=== PATIENT | female | born 1970 | race Caucasian/White ===

== ENCOUNTER 2016-08-09 15:36 | Emergency (ER) | payer BC ==
[2016-08-09 15:42] VITALS: TEMP 97.8
--- NOTE | 2016-08-09 16:07 | ED ---
General Adult HPI - General Chief complaint: Skin/Abscess/Foreign Body Stated complaint: left arm pain sent by Scripted Time Seen by Provider: 08/09/16 15:56 Source: patient, RN notes reviewed, old records reviewed Mode of arrival: ambulatory Limitations: no limitations - History of Present Illness Initial comments: This is a 45-year-old female here for evaluation. This patient presents for evaluation of shoulder pain. Left shoulder pain, for for about a week. No specific medical history, history of high cholesterol, no high blood pressure no diabetes nonsmoker with no strong family history of heart disease. Today patient went to urgent care she had a lump that she was in her left arm, etc. ER for evaluation of heart disease. Patient denies specific chest pain or shortness of breath. No prior history of similar issues - Related Data Home Medications Medication Instructions Recorded Confirmed Fexofenadine HCl [Yumiko Allergy] 180 mg PO DAILY 10/29/14 08/09/16 Montelukast [Singulair] 10 mg PO HS 10/29/14 08/09/16 Simvastatin [Simvastatin] 20 mg PO HS 10/29/14 08/09/16 fentaNYL [Fentanyl] 1 patch TOPICAL DAILY PRN 10/29/14 08/09/16 oxyCODONE HCL/ACETAMINOPHEN 1 tab PO TID PRN 10/29/14 08/09/16 [Oxycodone-Acetaminophen 10-325] Budesonide/Formoterol Fumarate 2 puff INHALATION RT-BID 03/20/16 08/09/16 [Symbicort 160-4.5 Mcg Inhaler] Albuterol Inhaler [Ventolin Hfa 1 puff INHALATION RT-Q6H PRN 08/09/16 08/09/16 Inhaler] Albuterol Nebulized [Ventolin 2.5 mg INHALATION RT-Q6H PRN 08/09/16 08/09/16 Nebulized] Aspirin 162 mg PO ONCE 08/09/16 08/09/16 Esomeprazole Magnesium [NexIUM] 40 mg PO DAILY 08/09/16 08/09/16 Allergies Allergy/AdvReac Type Severity Reaction Status Date / Time No Known Allergies Allergy Verified 08/09/16 16:02 Review of Systems ROS Statement: Those systems with pertinent positive or pertinent negative responses have been documented in the HPI. ROS Other: All systems not noted in ROS Statement are negative. Past Medical History Past Medical History: Asthma, GERD/Reflux Additional Past Medical History / Comment(s): SEASONAL ALLERGIES History of Any Multi-Drug Resistant Organisms: None Reported Past Surgical History: Back Surgery Additional Past Surgical History / Comment(s): REMOVAL UTERINE FIBROIDS. HYSTEROSCOPY. COLONOSCOPY Past Anesthesia/Blood Transfusion Reactions: Motion Sickness, Postoperative Nausea & Vomiting (PONV) Past Psychological History: Anxiety, Depression Smoking Status: Never smoker Past Alcohol Use History: None Reported Past Drug Use History: None Reported - Past Family History Mother Family Medical History: Cancer Father Family Medical History: Cancer General Exam Limitations: no limitations General appearance: alert, in no apparent distress, anxious Head exam: Present: atraumatic, normocephalic, normal inspection Eye exam: Present: normal appearance, PERRL, EOMI. Absent: scleral icterus, conjunctival injection, periorbital swelling ENT exam: Present: normal exam, mucous membranes moist Neck exam: Present: normal inspection. Absent: tenderness, meningismus, lymphadenopathy Respiratory exam: Present: normal lung sounds bilaterally. Absent: respiratory distress, wheezes, rales, rhonchi, stridor Cardiovascular Exam: Present: regular rate, normal rhythm, normal heart sounds. Absent: systolic murmur, diastolic murmur, rubs, gallop, clicks GI/Abdominal exam: Present: soft, normal bowel sounds. Absent: distended, tenderness, guarding, rebound, rigid Extremities exam: Present: normal inspection, full ROM, normal capillary refill. Absent: tenderness, pedal edema, joint swelling, calf tenderness Back exam: Present: normal inspection Neurological exam: Present: alert, oriented X3, CN II-XII intact Psychiatric exam: Present: normal affect, normal mood Skin exam: Present: warm, dry, intact, normal color. 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 Patient sent in from urgent care for evaluation of heart disease. Troponin negative EKG negative x-ray and CT negative. Patient can be discharged home to continue anti-inflammatories and pain control as directed - Lab Data Result diagrams: 08/09/16 16:20 08/09/16 16:20 Lab Results 08/09/16 08/09/16 08/09/16 Range/Units 16:20 16:20 16:20 WBC 10.6 (3.8-10.6) k/uL RBC 4.74 (3.80-5.40) m/uL Hgb 13.1 (11.4-16.0) gm/dL Hct 39.5 (34.0-46.0) % MCV 83.4 (80.0-100.0) fL MCH 27.7 (25.0-35.0) pg MCHC 33.2 (31.0-37.0) g/dL RDW 12.8 (11.5-15.5) % Plt Count 285 (150-450) k/uL Neutrophils % 85 % Lymphocytes % 10 % Monocytes % 3 % Eosinophils % 1 % Basophils % 0 % Neutrophils # 9.1 H (1.3-7.7) k/uL Lymphocytes # 1.0 (1.0-4.8) k/uL Monocytes # 0.4 (0-1.0) k/uL Eosinophils # 0.1 (0-0.7) k/uL Basophils # 0.0 (0-0.2) k/uL PT (9.0-12.0) sec INR (<1.1) APTT (22.0-30.0) sec D-Dimer (<0.60) mg/L FEU Sodium 144 (137-145) mmol/L Potassium 4.1 (3.5-5.1) mmol/L Chloride 107 (98-107) mmol/L Carbon Dioxide 23 (22-30) mmol/L Anion Gap 14 mmol/L BUN 16 (7-17) mg/dL Creatinine 0.70 (0.52-1.04) mg/dL Est GFR (MDRD) Af Amer >60 (>60 ml/min/1.73 sqM) Est GFR (MDRD) Non-Af >60 (>60 ml/min/1.73 sqM) Glucose 96 (74-99) mg/dL Calcium 9.7 (8.4-10.2) mg/dL Magnesium 2.1 (1.6-2.3) mg/dL Total Bilirubin 0.4 (0.2-1.3) mg/dL AST 25 (14-36) U/L ALT 35 (9-52) U/L Alkaline Phosphatase 58 (38-126) U/L Total Creatine Kinase 72 (30-135) U/L CK-MB (CK-2) 0.5 (0.0-2.4) ng/mL CK-MB (CK-2) Rel Index 0.7 Troponin I <0.012 (0.000-0.034) ng/mL NT-Pro-B Natriuret Pep pg/mL Total Protein 7.5 (6.3-8.2) g/dL Albumin 4.9 (3.5-5.0) g/dL Lipase 72 (23-300) U/L 08/09/16 08/09/16 Range/Units 16:20 16:20 WBC (3.8-10.6) k/uL RBC (3.80-5.40) m/uL Hgb (11.4-16.0) gm/dL Hct (34.0-46.0) % MCV (80.0-100.0) fL MCH (25.0-35.0) pg MCHC (31.0-37.0) g/dL RDW (11.5-15.5) % Plt Count (150-450) k/uL Neutrophils % % Lymphocytes % % Monocytes % % Eosinophils % % Basophils % % Neutrophils # (1.3-7.7) k/uL Lymphocytes # (1.0-4.8) k/uL Monocytes # (0-1.0) k/uL Eosinophils # (0-0.7) k/uL Basophils # (0-0.2) k/uL PT 10.0 (9.0-12.0) sec INR 1.0 (<1.1) APTT 23.5 (22.0-30.0) sec D-Dimer 0.86 H (<0.60) mg/L FEU Sodium (137-145) mmol/L Potassium (3.5-5.1) mmol/L Chloride (98-107) mmol/L Carbon Dioxide (22-30) mmol/L Anion Gap mmol/L BUN (7-17) mg/dL Creatinine (0.52-1.04) mg/dL Est GFR (MDRD) Af Amer (>60 ml/min/1.73 sqM) Est GFR (MDRD) Non-Af (>60 ml/min/1.73 sqM) Glucose (74-99) mg/dL Calcium (8.4-10.2) mg/dL Magnesium (1.6-2.3) mg/dL Total Bilirubin (0.2-1.3) mg/dL AST (14-36) U/L ALT (9-52) U/L Alkaline Phosphatase (38-126) U/L Total Creatine Kinase (30-135) U/L CK-MB (CK-2) (0.0-2.4) ng/mL CK-MB (CK-2) Rel Index Troponin I (0.000-0.034) ng/mL NT-Pro-B Natriuret Pep 113 pg/mL Total Protein (6.3-8.2) g/dL Albumin (3.5-5.0) g/dL Lipase (23-300) U/L - Radiology Data Radiology results: report reviewed (Chest x-ray negative for acute disease, CT chest negative for acute disease), image reviewed Disposition Clinical Impression: Left anterior shoulder pain Disposition: HOME SELF-CARE Condition: Good Instructions: Shoulder Sprain (ED) Referrals: Juan J Tobin DO [Primary Care Provider] - 1-2 days
[2016-08-09] MEDS ORDERED: SODIUM CHLORIDE 0.9% 1,000 ML IV STA (16:15)
[2016-08-09] MEDS ORDERED: KETOROLAC 30 MG/ML 1 ML VIAL IVP STA (16:15)
[2016-08-09 16:38] LABS: Basophils % (A) 0 %; CH 28.6; CHCM 34.4; Eosinophils # (A) 0.1 k/uL (0-0.7); Eosinophils % (A) 1 %; HCT 39.5 % (34.0-46.0); HDW 2.15; HGB 13.1 gm/dL (11.4-16.0); Luc # (Auto) 0.07; Luc % (Auto) 1; Lymphocytes % (A) 10 %; MCH 27.7 pg (25.0-35.0); MCHC 33.2 g/dL (31.0-37.0); MCV 83.4 fL (80.0-100.0); Mean Platelet Volume 7.8; Monocytes # (A) 0.4 k/uL (0-1.0); Monocytes % (A) 3 %; Neutrophils # (A) 9.1 k/uL (1.3-7.7); Neutrophils % (A) 85 %; RBC 4.74 m/uL (3.80-5.40); RDW 12.8 % (11.5-15.5); WBC 10.6 k/uL (3.8-10.6); WBC (Perox) 11.55
[2016-08-09 16:51] LABS: Partial Thromboplastin Time 23.5 sec (22.0-30.0)
[2016-08-09 16:55] LABS: ALT 35 U/L (9-52); AST 25 U/L (14-36); Alkaline Phosphatase 58 U/L (38-126); Anion Gap 14 mmol/L; Blood Urea Nitrogen 16 mg/dL (7-17); Calcium 9.7 mg/dL (8.4-10.2); Carbon Dioxide 23 mmol/L (22-30); Chloride 107 mmol/L (98-107); Glucose 96 mg/dL (74-99); Magnesium 2.1 mg/dL (1.6-2.3); Non-African American GFR(MDRD) >60 (>60 ml/min/1.73 sqM); Potassium 4.1 mmol/L (3.5-5.1); Sodium 144 mmol/L (137-145); Total Bilirubin 0.4 mg/dL (0.2-1.3); Total Protein 7.5 g/dL (6.3-8.2)
--- NOTE | 2016-08-09 16:56 | XR ---
EXAMINATION TYPE: XR chest 2V DATE OF EXAM: 08/09/2016 4:52 PM COMPARISON: Prior chest x-ray September 13, 2011. HISTORY: Chest pain per order. Upper left arm pain per patient. TECHNIQUE: Frontal and lateral views of the chest are obtained. FINDINGS: There is no focal air space opacity, pleural effusion, or pneumothorax seen. Underlying em physematous change is not excluded. The cardiac silhouette size is within normal limits. The osseou s structures are intact. IMPRESSION: No acute process. No significant change from prior.
[2016-08-09 17:11] LABS: Creatine Kinase MB 0.5 ng/mL (0.0-2.4); Troponin I <0.012 ng/mL (0.000-0.034)
[2016-08-09] MEDS ORDERED: RX INFO: IV CONTRAST WAS GIVEN 1 EACH MISC MISCELLANE PRN (17:17)
[2016-08-09 17:24] LABS: Creatine Kinase 72 U/L (30-135)
--- NOTE | 2016-08-09 17:56 | CT ---
EXAMINATION TYPE: CT angio chest DATE OF EXAM: 08/09/2016 5:46 PM COMPARISON: NONE HISTORY: Pt states of left arm pain x1 month. Hx of asthma. CT DLP: 141.0 mGycm Automated exposure control for dose reduction was used. CONTRAST: CT Chest for pulmonary embolism performed with with IV Contrast, patient injected with 70 mL of Omnip aque 350. FINDINGS: LUNGS: The lungs are grossly clear, there is no concerning parenchymal mass or nodule identified. T here is no pleural effusion or pneumothorax seen. The tracheobronchial tree is patent. MEDIASTINUM: There is satisfactory enhancement of the pulmonary artery and its branches, there is no CT evidence for pulmonary embolism. There are no greater than 1 cm hilar or mediastinal lymph nodes. No pericardial effusion is seen. Thoracic aorta: Thoracic aorta is of normal caliber. No evidence for dissection or periaortic collect ion. Other: There is a 1.9 cm solid-appearing left renal lesion upper pole left kidney. A smaller adjacent 1 cm solid-appearing lesion is also difficult to exclude. Dedicated contrast enhanced CT of the [facility] is recommended which can be performed as an outpatient. IMPRESSION: 1. No evidence of pulmonary embolism or thoracic aortic aneurysm. 2. Solid left renal lesions.Dedicated contrast enhanced CT of the kidneys is recommended which can be performed as an outpatient.
[2016-08-09 19:13] VITALS: BP 113/76; PULSE 88; RESP 18
== END 2016-08-09 19:13 | disposition home or self-care (01) ==
LOC: EC 15:36
DX: M25.512 Pain in left shoulder (principal); N28.9 Disorder of kidney and ureter, unspecified; K21.9 Gastro-esophageal reflux disease without esophagitis; J45.909 Unspecified asthma, uncomplicated; Z79.82 Long term (current) use of aspirin; Z79.899 Other long term (current) drug therapy
CPT/HCPCS: 99284; 96374; 96361 ×3; 36415; 93005; 85379; 83880; 80053; 82550; 82553; 83690; 83735; 84484; 85025; 85610; 85730; 71020; 71275; Q9967; J1885

== ENCOUNTER → 2016-08-17 | Outpatient (CLI) | payer BC ==
[2016-08-17 13:35] LABS: Blood Urea Nitrogen 12 mg/dL (7-17); Non-African American GFR(MDRD) >60 (>60 ml/min/1.73 sqM)
--- NOTE | 2016-08-17 17:20 | CT ---
EXAMINATION TYPE: CT abdomen pelvis wo/w con DATE OF EXAM: 08/17/2016 2:09 PM COMPARISON: CTA chest 08/09/2016 INDICATION: Abn CTA, possible renal mass DLP: 560.7 mGycm, Automated exposure control for dose reduction was used. CONTRAST: 100 ml mL of Omnipaque 300. Study performed with Oral Contrast TECHNIQUE: Axial images were obtained from above the diaphragm to the pubic rami in the axial plane a t 5 mm thick sections. Reconstructed images are reviewed on the computer in the coronal plane. FINDINGS: Limited CT sections are obtained the lung bases. The lung bases are clear. CT ABDOMEN: Liver: Normal Spleen: Normal Pancreas: Normal Adrenal glands: The adrenal glands are normal. Gallbladder: Normal Kidneys: Multiple rounded hypodensities are within the cortex of the left kidney. The largest is a 1. 8 cm in the superior pole with Hounsfield unit measurement 100. These areas appear more hypodense on the initial contrast and delayed images through the kidneys. Consider angiomyolipoma. Renal cell carc inoma however is within the differential. MRI may be useful for differentiating etiologies. No hydron ephrosis is present. No cysts are present. Delayed images were obtained through the kidneys, which remain unremarkable. Aorta: Normal Inferior vena cava: Normal. CT PELVIS: Loops of bowel within the abdomen and pelvis are normal. There are loops of bowel which are incom pletely distended or lack oral contrast limiting their evaluation. Appendix: What appears to be the appendix is Normal as visualized. Urinary bladder: Normal. Genitourinary structures: Uterus is in the right hemipelvis. Tampon is likely within the vagina. Adne xal regions are unremarkable. Osseous structures: No suspicious lytic or sclerotic lesions. Large Tarlov cyst may be present within the sacrum. This can be further evaluated with MRI of the lower lumbar spine IMPRESSIONS: 1. Hyperdense masses within the kidneys. These appear more hypodense following contrast administrati on of the renal cortex. 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 Renal cell carcinoma however cannot be excluded on the basis of the CT examination. Additional workup with contrast MRI is recommended. 2. 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 Additional evaluation with MRI of the lower lumbar spine and proximal sacrum is recommended.
== END | disposition home or self-care (01) ==
LOC: RADCTMAIN 12:43
PROVIDERS: ATTEND Internal Medicine Critical Care Medicine
DX: N28.89 Other specified disorders of kidney and ureter (principal)
CPT/HCPCS: 82565; 84520; 74178; 36415; Q9967

== ENCOUNTER → 2016-09-03 | Outpatient (CLI) | payer BC ==
--- NOTE | 2016-09-06 08:33 | MR ---
EXAMINATION TYPE: MR kidney wo/w con DATE OF EXAM: 09/03/2016 8:56 PM COMPARISON: CT abdomen and pelvis August 17, 2016 HISTORY: Recent abnormal CT CONTRAST: Standard multiplanar, multisequence MRI departmental protocol utilizing 15 mL intravenous MultiHance gadolinium contrast. FINDINGS: Kidneys: Correlating with recent CT there several round T1 hyperintense and T2 hypointense lesions sc attered throughout the left kidney with additional areas of T1 hyperintensity and T2 hyperintensity, findings are consistent with proteinaceous and/or hemorrhagic cysts. Dynamic postcontrast images show no suspicious enhancing masses to suggest worrisome renal cell carcinoma. No fat containing lesions are seen to suggest angiomyolipomas. Findings correlate with CT with hyperdense lesions that do not s how postcontrast enhancement. No suspicious solid or cystic masses and right kidney are seen. No hydr onephrosis is evident bilaterally. Other: Lung bases are grossly clear. Liver, gallbladder, spleen, pancreas, and both adrenal glands ar e normal in size and appear grossly unremarkable. There is no suspicious small or large bowel dilatation. There is no free abdominal fluid collection o r pneumoperitoneum. There is no greater than 1 cm abdominal adenopathy. Visualized osseous structures are intact. IMPRESSION: MRI findings confirm multiple hemorrhagic or proteinaceous cysts in the left kidney. No worrisome enh ancing solid mass is identified to suggest renal cell carcinoma.
== END | disposition home or self-care (01) ==
LOC: RADMRIMAIN 20:04
PROVIDERS: ATTEND Internal Medicine Critical Care Medicine
DX: N28.89 Other specified disorders of kidney and ureter (principal)
CPT/HCPCS: 74183; A9577

== ENCOUNTER → 2016-11-11 | Outpatient (CLI) | payer BC | END | disposition home or self-care (01) | LOC: LABWHC1 11:02 | PROVIDERS: ATTEND Internal Medicine Critical Care Medicine | DX: Z83.2 Family history of diseases of the blood and blood-forming organs and certain disorders involving the immune mechanism (principal) | CPT/HCPCS: 36415; 83021; 85660 ==

== ENCOUNTER 2017-01-12 11:00 | Day surgery (SDC) | payer BC ==
[2017-01-10 11:35] VITALS: BMI 23.3
[~2017-01-12 11:00] MED LIST: LACTATED RINGERS 1,000 ML IV SCH; LIDOCAINE 1% 20 ML VIAL (10MG/ML) FOR IV START INTRADERMA PRN
[2017-01-12 11:20] VITALS: TEMP 99.8
[2017-01-12] MEDS ORDERED: LIDOCAINE 1% 20 ML VIAL (10MG/ML) FOR IV START INTRADERMA ONE (11:30)
[2017-01-12] MEDS ORDERED: PROPOFOL 10 MG/ML 20 ML VIAL IV ONE (12:21)
--- NOTE | 2017-01-12 12:54 | P.PCN ---
Date of Procedure: 01/12/17 Preoperative Diagnosis: Abdominal pain Chronic constipation GERD Postoperative Diagnosis: Normal colonoscopy Procedure(s) Performed: Colonoscopy with random colon biopsy Implants: Anesthesia: MAC Surgeon: Roseline Urbina Pathology: other Condition: other (ASA3) Disposition: PACU Indications for Procedure: 46 years old female with chronic constipation presents for colonoscopy. Last colonoscopy 2 weeks ago was aborted due to poor prep. Informed consent obtained and patient elected to undergo colonoscopy with possible biopsy. She has bilateral flank pain and gastroesophageal reflux disease. Last EGD was in 2014. Operative Findings: Normal colonoscopy Description of Procedure: The patient was brought to the endoscopy suite and placed in lateral decubitus position. IV sedation was given as per anesthesia team. Patient was on continuous vitals and pulse oximetry monitoring throughout the procedure. A timeout was performed to verify correct patient and correct procedure. Perianal examination did not show any external hemorrhoids. Digital rectal examination was performed. No masses or gross blood. Very lax anal sphincter A well-lubricated Olympus colonoscope was passed per rectally and was gradually advanced beyond the sigmoid colon, splenic flexure, transverse colon, hepatic flexure and cecum. The ileocecal valve was visualized . Random biopsies taken from the cecum using cold biopsy forceps The colonoscope was gradually withdrawn inspecting all the mucosal surfaces. Bowel prep was good. No polyps, masses, AV malformations noted. No diverticulosis The scope was gradually withdrawn and retroflexed in the rectum . Grade 1 internal hemorrhoids seen. Total withdrawal time was greater than 6 minutes . Patient tolerated the procedure well and was taken to post anesthesia care unit in stable condition. Recommend repeat colonoscopy in 10 years . Final Pathologic Diagnosis COLON, RANDOM, BIOPSY; MATURE BENIGN COLONIC MUCOSA WITH A NORMAL CRYPT ARCHITECTURE AND LYMPHOID AGGREGATE FORMATION.
--- NOTE | 2017-01-12 13:14 | P.GSHP ---
History of Present Illness H&P Date: 01/12/17 Chief Complaint: Abdominal pain 46 yrs old femalepresented with epigastric and bilaterl flank pain. EGD 11/13 - normal . CTscan and MRI - bilateral renal masses/multiple hemorrhagic and proteinacious cyst. Also has low back pain. Chronic constipation. Last colonoscopy 10 yrs ago ROS Additionally reports: Constitutional: No fever, chills or rigors. No weight loss or loss of appetite. HEENT: No difficulty with hearing, vision and swallowing. Lymphatic: No axillary, inguinal and cervical swellings. Endocrine: No thyroid disorders. Denies history of diabetes. Respiratory: No chest pain, shortness of breath, and cough. No hemoptysis. Cardiovascular: No palpitations, irregular HR Gastrointestinal: Has heartburn. Constipatios. No nausea or vomiting. Genitourinary: No increase in urinary frequency or urgency. No hematuria. Musculoskeletal: Low back pain Neurologic: No history of seizure disorder and headaches. Psychiatric: Denies depression or anxiety . No suicidal ideation. Hematologic: Denies any abnormal mucosal bleeding or easy bruising. Physical Exam Patient is a 46-year-old female. Constitutional: General Appearance: healthy-appearing, well-nourished, and well- developed. Level of Distress: NAD. Ambulation: ambulating normally. Psychiatric: Insight: good judgement. Orientation: to time, place, and person. Head: Head: normocephalic and atraumatic. Eyes: Lids and Conjunctivae: no discharge or pallor and non-injected. Sclerae: non-icteric. ENMT: Oropharynx: moist mucous membranes. Abdomen: Bowel Sounds: normal. Inspection and Palpation: no tenderness or guarding and soft and non-distended. Musculoskeletal:: Motor Strength and Tone: normal and normal tone. Joints, Bones , and Muscles: normal movement of all extremities. Extremities: no cyanosis or edema. Neurologic: Gait and Station: normal gait and station. Cranial Nerves: grossly intact. Assessment / Plan 1. Negative clinical exam 2. Ct and MRI reviewed 3. Colonoscopy with random bx 4. COlonoscopy aborted 2 weeks ago due to poor prep 1. 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 History of Any Multi-Drug Resistant Organisms: None Reported Past Surgical History: Back Surgery Additional Past Surgical History / Comment(s): HYSTEROSCOPY, REMOVAL UTERINE FIBROIDS, TARLOV CYSTS ON SPINE DRAINED AND FILLED WITH BODY FAT (7 YEARS AGO). COLONOSCOPY Past Anesthesia/Blood Transfusion Reactions: Motion Sickness, Postoperative Nausea & Vomiting (PONV) Past Psychological History: Anxiety Smoking Status: Never smoker Past Alcohol Use History: None Reported Past Drug Use History: None Reported - Past Family History Sister(s) Family Medical History: Cancer Additional Family Medical History / Comment(s): THYROID CANCER Mother Family Medical History: Cancer Additional Family Medical History / Comment(s): PANCREATIC CANCER Father Family Medical History: Cancer Additional Family Medical History / Comment(s): LUNG CANCER Medications and Allergies Home Medications Medication Instructions Recorded Confirmed Type Montelukast [Singulair] 10 mg PO HS 10/29/14 01/12/17 History Simvastatin [Simvastatin] 20 mg PO HS 10/29/14 01/12/17 History fentaNYL [Fentanyl] 1 patch TOPICAL Q72H PRN 10/29/14 01/12/17 History oxyCODONE HCL/ACETAMINOPHEN 1 tab PO Q6HR PRN 10/29/14 01/12/17 History [Oxycodone-Acetaminophen 10-325] Budesonide/Formoterol Fumarate 2 puff INHALATION BID PRN 03/20/16 01/12/17 History [Symbicort 160-4.5 Mcg Inhaler] Albuterol Inhaler [Ventolin Hfa 1 puff INHALATION RT-Q6H PRN 08/09/16 01/12/17 History Inhaler] Albuterol Nebulized [Ventolin 2.5 mg INHALATION RT-Q6H PRN 08/09/16 01/12/17 History Nebulized] Esomeprazole Magnesium [NexIUM] 20 mg PO DAILY 08/09/16 01/12/17 History RX: ALPRAZolam [Xanax] 0.25 mg PO DAILY PRN 01/10/17 01/12/17 History Sertraline [Zoloft] 50 mg PO HS 01/10/17 01/12/17 History Allergies Allergy/AdvReac Type Severity Reaction Status Date / Time No Known Allergies Allergy Verified 01/12/17 11:20 Surgical - Exam Vital Signs Temp Pulse Resp BP Pulse Ox 99.8 F H 87 18 123/74 97 01/12/17 11:19 01/12/17 11:19 01/12/17 11:19 01/12/17 11:19 01/12/17 11:19
[2017-01-12 13:17] VITALS: BP 95/63; PULSE 69; RESP 18
== END 2017-01-12 13:35 | disposition home or self-care (01) ==
LOC: ORWHC2ENDO 11:00
PROVIDERS: ATTEND Surgery
DX: K59.00 Constipation, unspecified (principal); R10.9 Unspecified abdominal pain; J45.909 Unspecified asthma, uncomplicated; K21.9 Gastro-esophageal reflux disease without esophagitis; Z79.51 Long term (current) use of inhaled steroids; Z79.899 Other long term (current) drug therapy
CPT/HCPCS: 81025; 88305; 45380; J2704

== ENCOUNTER 2017-10-06 16:55 | Emergency (ER) | payer BC ==
[2017-10-06] MEDS ORDERED: KETOROLAC 30 MG/ML 1 ML VIAL IVP STA (17:24)
[2017-10-06] MEDS ORDERED: SODIUM CHLORIDE 0.9% 1,000 ML IV STA (17:24)
--- NOTE | 2017-10-06 17:33 | ED ---
General Adult HPI - General Chief complaint: Extremity Injury, Lower Stated complaint: FEVER, PAIN IN LOWER EXTREMITIES, HIPS Time Seen by Provider: 10/06/17 17:12 Source: patient, RN notes reviewed Mode of arrival: ambulatory Limitations: no limitations - History of Present Illness Initial comments: 47-year-old female presents to the emergency department with a chief complaint of bilateral lower extremity pain and hip pain. She states she's had this on and off for the last month or so. She admits to history of a cyst repair in the past. She states that had low-grade fever when she went to the doctor and now today she is found to have another low-grade fevers well. They're just concerned why she is having so much pain and low-grade fevers with her history so they thought that she should be seen. She denies any nausea vomiting any changes in bowel or bladder habits. Patient denies any recent shortness of breath, chest pain, back pain, abdominal pain, nausea vomiting, numbness or tingling, dysuria or hematuria, constipation or diarrhea, headaches or visual changes, or any other current symptoms. - Related Data Home Medications Medication Instructions Recorded Confirmed Montelukast [Singulair] 10 mg PO HS 10/29/14 10/06/17 Simvastatin [Simvastatin] 20 mg PO HS 10/29/14 10/06/17 fentaNYL [Fentanyl] 1 patch TOPICAL Q72H PRN 10/29/14 10/06/17 oxyCODONE HCL/ACETAMINOPHEN 1 tab PO Q6HR PRN 10/29/14 10/06/17 [Oxycodone-Acetaminophen 10-325] Budesonide/Formoterol Fumarate 2 puff INHALATION BID PRN 03/20/16 10/06/17 [Symbicort 160-4.5 Mcg Inhaler] Albuterol Inhaler [Ventolin Hfa 1 puff INHALATION RT-Q6H PRN 08/09/16 10/06/17 Inhaler] Esomeprazole Magnesium [NexIUM] 20 mg PO DAILY 08/09/16 10/06/17 ALPRAZolam [Xanax] 0.25 mg PO DAILY PRN 01/10/17 10/06/17 Previous Rx's Medication Instructions Recorded Ketorolac [Toradol] 10 mg PO Q6HR #20 tab 10/06/17 Allergies Allergy/AdvReac Type Severity Reaction Status Date / Time No Known Allergies Allergy Verified 10/06/17 17:53 Review of Systems ROS Statement: Those systems with pertinent positive or pertinent negative responses have been documented in the HPI. ROS Other: All systems not noted in ROS Statement are negative. 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 History of Any Multi-Drug Resistant Organisms: None Reported Past Surgical History: Back Surgery Additional Past Surgical History / Comment(s): HYSTEROSCOPY, REMOVAL UTERINE FIBROIDS, TARLOV CYSTS ON SPINE DRAINED AND FILLED WITH BODY FAT (7 YEARS AGO). COLONOSCOPY Past Anesthesia/Blood Transfusion Reactions: Motion Sickness, Postoperative Nausea & Vomiting (PONV) Past Psychological History: Anxiety Smoking Status: Never smoker Past Alcohol Use History: None Reported Past Drug Use History: None Reported - Past Family History Sister(s) Family Medical History: Cancer Additional Family Medical History / Comment(s): THYROID CANCER Mother Family Medical History: Cancer Additional Family Medical History / Comment(s): PANCREATIC CANCER Father Family Medical History: Cancer Additional Family Medical History / Comment(s): LUNG CANCER General Exam - General Exam Comments Initial Comments: General: The patient is awake and alert, in no distress, and does not appear acutely ill. Eye: Pupils are equal, round. Ears, nose, mouth and throat: There are moist mucous membranes. Neck: The neck is supple, there is no tenderness. Cardiovascular: There is a regular rate and rhythm. No murmur, rub or gallop is appreciated. Respiratory: Lungs are clear to auscultation, respirations are non-labored, breath sounds are equal. No wheezes, stridor, rales, or rhonchi. Gastrointestinal: Soft, non-distended, non-tender abdomen without masses or organomegaly noted. There is no rebound or guarding present. No CVA tenderness. Bowel sounds are unremarkable. Back: There is no tenderness to palpation in the midline. There is no obvious deformity. No rashes noted. Musculoskeletal: Normal ROM, no tenderness, There is no pedal edema. There is no calf tenderness or swelling. Sensation intact. Pulses equal bilaterally 2+. Neurological: CN II-XII intact, There are no obvious motor or sensory deficits. Coordination appears grossly intact. Speech is normal. Skin: Skin is warm and dry and no rashes or lesions are noted. Psychiatric: Cooperative, appropriate mood & affect, normal judgment. Limitations: no limitations Course Vital Signs 10/06/17 10/06/17 10/06/17 17:07 18:51 19:37 Temperature 100.4 F H 98.6 F 98.5 F Pulse Rate 100 104 H 99 Respiratory 18 16 17 Rate Blood Pressure 141/73 127/67 118/58 O2 Sat by Pulse 100 98 98 Oximetry Medical Decision Making - Medical Decision Making 47-year-old female presents to the emergency department with a chief complaint of bilateral lower extremity pain pain. This and patient's lab work and CAT scan has been reviewed. At this time we discussed seems to be probably family care doctor approximately please see infectious disease for on And off fevers. We do not see a source at this time for her fever. We did discuss return parameters all questions. Patient stated that she understood she is agreement this plan. She'll be discharged. - Lab Data Result diagrams: 10/06/17 17:27 10/06/17 17:27 Lab Results 10/06/17 10/06/17 10/06/17 Range/Units 17:27 17:27 17:27 WBC 13.2 H (3.8-10.6) k/uL RBC 4.96 (3.80-5.40) m/uL Hgb 13.1 (11.4-16.0) gm/dL Hct 39.9 (34.0-46.0) % MCV 80.3 (80.0-100.0) fL MCH 26.4 (25.0-35.0) pg MCHC 32.9 (31.0-37.0) g/dL RDW 13.2 (11.5-15.5) % Plt Count 398 (150-450) k/uL Neutrophils % 78 % Lymphocytes % 15 % Monocytes % 4 % Eosinophils % 1 % Basophils % 0 % Neutrophils # 10.3 H (1.3-7.7) k/uL Lymphocytes # 2.0 (1.0-4.8) k/uL Monocytes # 0.6 (0-1.0) k/uL Eosinophils # 0.1 (0-0.7) k/uL Basophils # 0.1 (0-0.2) k/uL Sodium 142 (137-145) mmol/L Potassium 4.0 (3.5-5.1) mmol/L Chloride 102 (98-107) mmol/L Carbon Dioxide 25 (22-30) mmol/L Anion Gap 15 mmol/L BUN 15 (7-17) mg/dL Creatinine 0.70 (0.52-1.04) mg/dL Est GFR (CKD-EPI)AfAm >90 (>60 ml/min/1.73 sqM) Est GFR (CKD-EPI)NonAf >90 (>60 ml/min/1.73 sqM) Glucose 118 H (74-99) mg/dL Calcium 10.1 (8.4-10.2) mg/dL Total Bilirubin 0.3 (0.2-1.3) mg/dL AST 25 (14-36) U/L ALT 22 (9-52) U/L Alkaline Phosphatase 74 (38-126) U/L C-Reactive Protein (<10.0) mg/L Total Protein 8.2 (6.3-8.2) g/dL Albumin 5.1 H (3.5-5.0) g/dL Urine Color Yellow Urine Appearance Cloudy H (Clear) Urine pH 5.5 (5.0-8.0) Ur Specific [place] 1.015 (1.001-1.035) Urine Protein Trace H (Negative) Urine Glucose (UA) Negative (Negative) Urine Ketones Negative (Negative) Urine Blood Negative (Negative) Urine Nitrite Negative (Negative) Urine Bilirubin Negative (Negative) Urine Urobilinogen <2.0 (<2.0) mg/dL Ur Leukocyte Esterase Negative (Negative) Urine RBC 1 (0-5) /hpf Urine WBC 3 (0-5) /hpf Ur Squamous Epith Cells 6 H (0-4) /hpf Urine Bacteria Few H (None) /hpf Urine Mucus Rare H (None) /hpf 10/06/17 Range/Units 17:27 WBC (3.8-10.6) k/uL RBC (3.80-5.40) m/uL Hgb (11.4-16.0) gm/dL Hct (34.0-46.0) % MCV (80.0-100.0) fL MCH (25.0-35.0) pg MCHC (31.0-37.0) g/dL RDW (11.5-15.5) % Plt Count (150-450) k/uL Neutrophils % % Lymphocytes % % Monocytes % % Eosinophils % % Basophils % % Neutrophils # (1.3-7.7) k/uL Lymphocytes # (1.0-4.8) k/uL Monocytes # (0-1.0) k/uL Eosinophils # (0-0.7) k/uL Basophils # (0-0.2) k/uL Sodium (137-145) mmol/L Potassium (3.5-5.1) mmol/L Chloride (98-107) mmol/L Carbon Dioxide (22-30) mmol/L Anion Gap mmol/L BUN (7-17) mg/dL Creatinine (0.52-1.04) mg/dL Est GFR (CKD-EPI)AfAm (>60 ml/min/1.73 sqM) Est GFR (CKD-EPI)NonAf (>60 ml/min/1.73 sqM) Glucose (74-99) mg/dL Calcium (8.4-10.2) mg/dL Total Bilirubin (0.2-1.3) mg/dL AST (14-36) U/L ALT (9-52) U/L Alkaline Phosphatase (38-126) U/L C-Reactive Protein 6.4 (<10.0) mg/L Total Protein (6.3-8.2) g/dL Albumin (3.5-5.0) g/dL Urine Color Urine Appearance (Clear) Urine pH (5.0-8.0) Ur Specific [place] (1.001-1.035) Urine Protein (Negative) Urine Glucose (UA) (Negative) Urine Ketones (Negative) Urine Blood (Negative) Urine Nitrite (Negative) Urine Bilirubin (Negative) Urine Urobilinogen (<2.0) mg/dL Ur Leukocyte Esterase (Negative) Urine RBC (0-5) /hpf Urine WBC (0-5) /hpf Ur Squamous Epith Cells (0-4) /hpf Urine Bacteria (None) /hpf Urine Mucus (None) /hpf - Radiology Data Radiology results: report reviewed, image reviewed Disposition Clinical Impression: Hip pain Disposition: HOME SELF-CARE Condition: Stable Instructions: Hip Pain (ED) Additional Instructions: Please use medication as discussed. Please follow up with family doctor if symptoms have not improved over the next two days. Please return to the emergency room if your symptoms increase or worsen or for any other concerns. Prescriptions: Ketorolac [Toradol] 10 mg PO Q6HR #20 tab Referrals: Claribel Escobar MD [STAFF PHYSICIAN] - 1-2 days Time of Disposition: 19:44
[2017-10-06 17:44] LABS: Basophils # (A) 0.1 k/uL (0-0.2); Basophils % (A) 0 %; Eosinophils # (A) 0.1 k/uL (0-0.7); Eosinophils % (A) 1 %; HCT 39.9 % (34.0-46.0); HGB 13.1 gm/dL (11.4-16.0); Lymphocytes % (A) 15 %; MCH 26.4 pg (25.0-35.0); MCHC 32.9 g/dL (31.0-37.0); MCV 80.3 fL (80.0-100.0); Mean Platelet Volume 7.6; Monocytes # (A) 0.6 k/uL (0-1.0); Monocytes % (A) 4 %; Neutrophils # (A) 10.3 k/uL (1.3-7.7); Neutrophils % (A) 78 %; Platelet Count 398 k/uL (150-450); RBC 4.96 m/uL (3.80-5.40); RDW 13.2 % (11.5-15.5); WBC 13.2 k/uL (3.8-10.6)
[2017-10-06 17:46] LABS: Appearance,Urine Cloudy (Clear); Bacteria,Urine Few /hpf; Bilirubin,Urine Negative (Negative); Blood,Urine Negative (Negative); Color,Urine Yellow; Glucose,Urine (UA) Negative (Negative); Ketones,Urine Negative (Negative); Leukocyte Esterase,Urine Negative (Negative); Mucus,Urine Rare /hpf; PH, Urine 5.5 (5.0-8.0); Protein,Urine Trace (Negative); RBC,Urine 1 /hpf (0-5); Specific Gravity,Urine 1.015 (1.001-1.035); Squamous Epithelial Cell,Urine 6 /hpf (0-4); Urobilinogen,Urine <2.0 mg/dL (<2.0); WBC,Urine 3 /hpf (0-5)
[2017-10-06] MEDS ORDERED: RX INFO: IV CONTRAST WAS GIVEN 1 EACH MISC MISCELLANE PRN (17:47)
[2017-10-06 18:04] LABS: ALT 22 U/L (9-52); AST 25 U/L (14-36); Albumin 5.1 g/dL (3.5-5.0); Alkaline Phosphatase 74 U/L (38-126); Anion Gap 15 mmol/L; Blood Urea Nitrogen 15 mg/dL (7-17); Calcium 10.1 mg/dL (8.4-10.2); Carbon Dioxide 25 mmol/L (22-30); Chloride 102 mmol/L (98-107); Glucose 118 mg/dL (74-99); Sodium 142 mmol/L (137-145); Total Bilirubin 0.3 mg/dL (0.2-1.3); Total Protein 8.2 g/dL (6.3-8.2)
--- NOTE | 2017-10-06 18:55 | CT ---
EXAMINATION TYPE: CT pelvis w con DATE OF EXAM: 10/06/2017 COMPARISON: Prior CT abdomen pelvis 08/17/2016 HISTORY: Patient complains of low back pain with radiation bilaterally to the hips. Patient has a hi story of Tarlov cysts. CT DLP: 929.8 mGycm Automated exposure control for dose reduction was used. TECHNIQUE: Helical acquisition of images from the lung bases through the pelvis have been completed. CONTRAST: Performed without Oral Contrast and with IV Contrast, patient injected with 100 mL of Omnipaque 300. FINDINGS: REPRODUCTIVE ORGANS: No significant abnormality is seen BOWEL: No significant abnormality is seen. FREE AIR: No Free Air visible. ASCITES: Minimal free fluid in the dependent portion of the pelvis may be physiologic. PELVIC ADENOPATHY: None visualized. RETROPERITONEAL ADENOPATHY: No Retroperitoneal Adenopathy visible. URINARY BLADDER: No significant abnormality is seen. OSSEOUS STRUCTURES: Tarlov cysts again noted in the sacrum.. IMPRESSION: MINIMAL FREE FLUID IN THE PELVIS. TARLOV CYSTS.
--- NOTE | 2017-10-06 19:01 | CT ---
EXAMINATION TYPE: CT lumbar spine w con DATE OF EXAM: 10/06/2017 COMPARISON: Prior CT 08/17/2016 and MRI kidney 09/03/2016 HISTORY: Patient complains of low back pain with radiation bilaterally to the hips. Patient has a hi story of Tarlov cysts. CT DLP: 861.38 mGycm Automated exposure control for dose reduction was used. CONTRAST: CT scan of the lumbar is performed with IV Contrast, patient injected with 100 mL of Omnipaque [address] of the lumbar spine was performed. Bone and soft tissue window settings are submitted as well as coronal and sagittal reconstructions. FINDINGS: The dysraphic posterior aspect of the sacrum with low dense areas and bone remodeling vicky tible with patient's previously known Tarlov cysts is again seen, no definite interval change. Incide ntal note made of hyperdense focus within the left kidney which is incompletely evaluated, previous h yperdense foci noted within the left kidney. There is a spinal curvature. L1-L2: Normal disc space height. No disc herniation protrusion or central stenosis. No facet joint arthropathy. No evidence for foraminal encroachment. L2-L3: Normal disc space height. No disc herniation protrusion or central stenosis. No facet joint arthropathy. No evidence for foraminal encroachment. L3-L4: Minimal posterior broad-based disc bulge contacts the anterior thecal sac, no significant spin al stenosis or foraminal encroachment. L4-L5: Posterior broad-based disc bulge contacts anterior thecal sac. No significant spinal stenosis or foraminal encroachment. L5-S1: Mild posterior disc bulge may contact the anterior thecal sac, proximal S1 nerve root left gre ater than right IMPRESSION: No paraspinal masses are identified. Lumbar segments are intact. Scoliosis. 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 Incomplete evaluation of patient's left kidne y, patient with known left renal masses.
[2017-10-06 19:38] VITALS: BP 118/58; PULSE 99; RESP 17; TEMP 98.5
== END 2017-10-06 19:54 | disposition home or self-care (01) ==
LOC: EC 16:55
DX: M25.551 Pain in right hip (principal); M25.552 Pain in left hip; R50.9 Fever, unspecified; K21.9 Gastro-esophageal reflux disease without esophagitis; J45.909 Unspecified asthma, uncomplicated; Z79.899 Other long term (current) drug therapy
CPT/HCPCS: 99284; 96374; 96361; 36415; 80053; 85025; 86140; 81001; 87040; 87086; 72193; 72132; J1885; Q9967

== ENCOUNTER 2017-10-13 14:16 | Emergency (ER) | payer BC ==
[2017-10-13 14:20] VITALS: BP 150/79; RESP 18
--- NOTE | 2017-10-13 15:06 | ED ---
Skin/Abscess/FB HPI - General Chief complaint: Skin/Abscess/Foreign Body Stated complaint: skin problem Time Seen by Provider: 10/13/17 14:20 Source: patient Mode of arrival: ambulatory Limitations: no limitations - History of Present Illness Initial comments: 47-year-old female patient presents to the emergency department today for complaints of pain to her left antecubital area. Patient states that she was seen here in the emergency department approximately one week ago. States that she woke this morning with pain and swelling to the area of her IV. States that she did not have any problems with the area before this. She denies any redness, numbness, or tingling to the arm. Patient states that she has been having low-grade fevers however this has been going on chronically and her primary care physician has been trying to determine the cause. Patient denies any recent rash, chills, shortness breath, chest pain, palpitations, abdominal pain, nausea, vomiting, diarrhea, constipation, back pain, numbness, tingling, dizziness, weakness, hematuria, dysuria, urinary urgency, urinary frequency, headache, visual changes, or any other complaints. - Related Data Home Medications Medication Instructions Recorded Confirmed Montelukast [Singulair] 10 mg PO HS 10/29/14 10/06/17 Simvastatin [Simvastatin] 20 mg PO HS 10/29/14 10/06/17 fentaNYL [Fentanyl] 1 patch TOPICAL Q72H PRN 10/29/14 10/06/17 oxyCODONE HCL/ACETAMINOPHEN 1 tab PO Q6HR PRN 10/29/14 10/06/17 [Oxycodone-Acetaminophen 10-325] Budesonide/Formoterol Fumarate 2 puff INHALATION BID PRN 03/20/16 10/06/17 [Symbicort 160-4.5 Mcg Inhaler] Albuterol Inhaler [Ventolin Hfa 1 puff INHALATION RT-Q6H PRN 08/09/16 10/06/17 Inhaler] Esomeprazole Magnesium [NexIUM] 20 mg PO DAILY 08/09/16 10/06/17 ALPRAZolam [Xanax] 0.25 mg PO DAILY PRN 01/10/17 10/06/17 Previous Rx's Medication Instructions Recorded Ketorolac [Toradol] 10 mg PO Q6HR #20 tab 10/06/17 Ibuprofen [Motrin] 600 mg PO Q8HR PRN #30 tab 10/13/17 Allergies Allergy/AdvReac Type Severity Reaction Status Date / Time No Known Allergies Allergy Verified 10/13/17 14:20 Review of Systems ROS Statement: Those systems with pertinent positive or pertinent negative responses have been documented in the HPI. ROS Other: All systems not noted in ROS Statement are negative. 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 History of Any Multi-Drug Resistant Organisms: None Reported Past Surgical History: Back Surgery Additional Past Surgical History / Comment(s): HYSTEROSCOPY, REMOVAL UTERINE FIBROIDS, TARLOV CYSTS ON SPINE DRAINED AND FILLED WITH BODY FAT (7 YEARS AGO). COLONOSCOPY Past Anesthesia/Blood Transfusion Reactions: Motion Sickness, Postoperative Nausea & Vomiting (PONV) Past Psychological History: Anxiety Smoking Status: Never smoker Past Alcohol Use History: None Reported Past Drug Use History: None Reported - Past Family History Sister(s) Family Medical History: Cancer Additional Family Medical History / Comment(s): THYROID CANCER Mother Family Medical History: Cancer Additional Family Medical History / Comment(s): PANCREATIC CANCER Father Family Medical History: Cancer Additional Family Medical History / Comment(s): LUNG CANCER General Exam Limitations: no limitations General appearance: alert, in no apparent distress, other (This is a well- developed, well-nourished adult female patient in no acute distress. Vital signs upon presentation are temperature 99.9F, pulse 104, respirations 18, blood pressure 150/79, pulse ox 100% on room air.) Eye exam: Present: normal appearance, PERRL, EOMI. Absent: scleral icterus, conjunctival injection, periorbital swelling ENT exam: Present: normal exam, normal oropharynx, mucous membranes moist Respiratory exam: Present: normal lung sounds bilaterally. Absent: respiratory distress, wheezes, rales, rhonchi, stridor Cardiovascular Exam: Present: regular rate, normal rhythm, normal heart sounds. Absent: systolic murmur, diastolic murmur, rubs, gallop, clicks Extremities exam: Present: normal inspection, full ROM, tenderness (Tenderness over the medial aspect of the left antecubital fossa. No evidence of redness, may be mild swelling. Skin is otherwise pink, warm, and dry. Cap refills less than 3 seconds. Radial pulses 2+ and equal bilaterally.), normal capillary refill, other (Left upper extremity skin is pink, warm, and dry. Cap refills less than 3 seconds. Bilateral lower extremity skin is pink, warm, and dry. Cap refills less than 3 seconds. Radial pulses are 2+ and equal bilaterally. Pedal pulses are 2+ and equal bilaterally.). Absent: pedal edema, joint swelling, calf tenderness Neurological exam: Present: alert, oriented X3, CN II-XII intact Psychiatric exam: Present: normal affect, normal mood Skin exam: Present: warm, dry, intact, normal color. Absent: rash Course Vital Signs 10/13/17 10/13/17 14:16 17:47 Temperature 99.9 F H 99 F Pulse Rate 104 H 99 Respiratory 18 Rate Blood Pressure 150/79 O2 Sat by Pulse 100 99 Oximetry Medical Decision Making - Medical Decision Making 47 year-old female patient presented to the emergency department today for evaluation of tenderness and swelling to the left antecubital fossa. Patient had an IV line to the site about one week ago. Physical examination revealed minor swelling and tenderness to the left antecubital fossa. Neurovascular status was intact. Distal pulses are intact. We did perform ultrasound of the left upper extremity which did reveal a 3 cm superficial venous thrombosis to the basilic vein. I did inform patient of these results, at time of discharge she reported bilateral leg pain mostly in the groin and behind each knee. She said is been going on for a few weeks. We did perform ultrasound of bilateral lower extremities which was negative for acute DVT. I did discuss findings with the patient. She is instructed to follow up with her primary care physician for further evaluation of this pain. She will be given a prescription for ibuprofen for management of the superficial venous thrombosis. She is instructed to apply heat to the area. Patient did also have low-grade temperature here in the department. She has had low-grade fevers on and off for the last 2 years, and is currently being evaluated by her primary care physician for this. She is instructed to return here immediately for any new, worsening, or concerning symptoms. She verbalizes understanding and agrees with this plan. - Radiology Data Radiology results: report reviewed, image reviewed Ultrasound venous Doppler duplex of the left upper extremity shows negative for DVT; is positive for superficial vein thrombosis first 3 cm in length in the left basophilic vein at the left brachial fossa. Impression by Dr. Talavera shows findings compatible with left superficial venous thrombosis involving the basilic vein. Ultrasound venous Doppler duplex of the bilateral lower extremities was negative for DVT. Impression by Dr. Milan shows negative exam. No evidence for deep venous thrombosis in both legs. Disposition Clinical Impression: Superficial venous thrombosis of left arm, Leg pain, bilateral Disposition: HOME SELF-CARE Condition: Good Instructions: Superficial Thrombophlebitis (ED) Additional Instructions: Take ibuprofen as directed. Follow-up with your primary care physician for further evaluation. Return here immediately for any new, worsening, or concerning symptoms. Prescriptions: Ibuprofen [Motrin] 600 mg PO Q8HR PRN #30 tab PRN Reason: Pain Referrals: Juan J Tobin DO [Primary Care Provider] - 1-2 days Time of Disposition: 17:37
--- NOTE | 2017-10-13 15:46 | US ---
EXAMINATION TYPE: US venous doppler duplex UE LT DATE OF EXAM: 10/13/2017 COMPARISON: NONE CLINICAL HISTORY: Pain. EC patient stated had IV in left arm last week and now c/o palpable with brac hial fossa pain; low grade fever x weeks SIDE PERFORMED: left Left Arm: Negative for DVT; is POSITIVE for Superficial Vein thrombosis for 3cm length in left Basili c Vein at left Brachial Fossa. IMPRESSION: Findings are compatible left superficial venous thrombosis involving the basilic vein.
[2017-10-13] MEDS ORDERED: oxyCODONE-APAP 10-325MG 1 EACH TAB PO STA (16:40)
--- NOTE | 2017-10-13 17:26 | US ---
EXAMINATION TYPE: US venous doppler duplex LE DATE OF EXAM: 10/13/2017 4:24 PM COMPARISON: CLINICAL HISTORY: Pain. No swelling or redness. SIDE PERFORMED: Bilateral TECHNIQUE: The lower extremity deep venous system is examined utilizing real time linear array sonog josias with graded compression, doppler sonography and color-flow sonography. VESSELS IMAGED: External Iliac Vein (EIV) Common Femoral Vein Deep Femoral Vein Greater Saphenous Vein * Femoral Vein Popliteal Vein Small Saphenous Vein * Proximal Calf Veins (* superficial vessels) Right Leg: Negative for DVT Left Leg: Negative for DVT IMPRESSION: Negative exam. No evidence of deep venous thrombosis in both legs.
[2017-10-13 17:47] VITALS: PULSE 99; TEMP 99
== END 2017-10-13 17:47 | disposition home or self-care (01) ==
LOC: EC 14:16
DX: I82.612 Acute embolism and thrombosis of superficial veins of left upper extremity (principal); M79.604 Pain in right leg; M79.605 Pain in left leg; J45.909 Unspecified asthma, uncomplicated; K21.9 Gastro-esophageal reflux disease without esophagitis; Z79.899 Other long term (current) drug therapy
CPT/HCPCS: 93970; 99283

== ENCOUNTER 2017-10-20 09:08 | Inpatient (IN) | payer BC ==
[2017-10-20] MEDS ORDERED: IBUPROFEN 600 MG TAB PO STA (09:32)
[2017-10-20] MEDS ORDERED: ACETAMINOPHEN TAB 500 MG TAB PO STA (09:32)
--- NOTE | 2017-10-20 09:37 | ED ---
General Adult HPI - General Chief complaint: Chest Pain Stated complaint: CHEST PAIN, HX BLOOD CLOT Time Seen by Provider: 10/20/17 09:10 Source: patient, RN notes reviewed Mode of arrival: wheelchair Limitations: no limitations - History of Present Illness Initial comments: This is a 47-year-old female who presents to the emergency department complaining of 2 days of left arm pain. Patient states it's constant and achy. Patient states the pain started in the left antecubital fossa where she had an IV placed but now the pain is spread to the whole arm. Patient states she also started having some sharp chest pain on the left side last night and continues today. Patient states it is worse with deep breathing or twisting. Patient states that she rests and breathes shallow it does not hurt. Patient also has a fever the emergency department however she denies any cough she denies any rashes and denies any nausea vomiting or diarrhea. Patient denies any dysuria hematuria urinary frequency. Patient denies any congestion or runny nose. - Related Data Home Medications Medication Instructions Recorded Confirmed Montelukast [Singulair] 10 mg PO HS 10/29/14 10/20/17 Simvastatin [Simvastatin] 20 mg PO HS 10/29/14 10/20/17 fentaNYL [Fentanyl] 1 patch TOPICAL Q72H PRN 10/29/14 10/20/17 oxyCODONE HCL/ACETAMINOPHEN 1 tab PO Q6HR PRN 10/29/14 10/20/17 [Oxycodone-Acetaminophen 10-325] Budesonide/Formoterol Fumarate 2 puff INHALATION RT-BID PRN 03/20/16 10/20/17 [Symbicort 160-4.5 Mcg Inhaler] Albuterol Inhaler [Ventolin Hfa 1 puff INHALATION RT-Q6H PRN 08/09/16 10/20/17 Inhaler] Esomeprazole Magnesium [NexIUM] 20 mg PO DAILY 08/09/16 10/20/17 ALPRAZolam [Xanax] 0.25 mg PO DAILY PRN 01/10/17 10/20/17 Previous Rx's Medication Instructions Recorded Ketorolac [Toradol] 10 mg PO Q6HR #20 tab 10/06/17 Ibuprofen [Motrin] 600 mg PO Q8HR PRN #30 tab 10/13/17 Allergies Allergy/AdvReac Type Severity Reaction Status Date / Time No Known Allergies Allergy Verified 10/20/17 09:27 Review of Systems ROS Statement: Those systems with pertinent positive or pertinent negative responses have been documented in the HPI. ROS Other: All systems not noted in ROS Statement are negative. 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 History of Any Multi-Drug Resistant Organisms: None Reported Past Surgical History: Back Surgery Additional Past Surgical History / Comment(s): HYSTEROSCOPY, REMOVAL UTERINE FIBROIDS, TARLOV CYSTS ON SPINE DRAINED AND FILLED WITH BODY FAT (7 YEARS AGO). COLONOSCOPY Past Anesthesia/Blood Transfusion Reactions: Motion Sickness, Postoperative Nausea & Vomiting (PONV) Past Psychological History: Anxiety Smoking Status: Never smoker Past Alcohol Use History: None Reported Past Drug Use History: None Reported - Past Family History Sister(s) Family Medical History: Cancer Additional Family Medical History / Comment(s): THYROID CANCER Mother Family Medical History: Cancer Additional Family Medical History / Comment(s): PANCREATIC CANCER Father Family Medical History: Cancer Additional Family Medical History / Comment(s): LUNG CANCER General Exam - General Exam Comments Initial Comments: GENERAL: Patient is well-developed and well-nourished. Patient is nontoxic and well- hydrated and is in mild distress. ENT: Neck is soft and supple. No significant lymphadenopathy is noted. Oropharynx is clear. Moist mucous membranes. Neck has full range of motion without eliciting any pain. EYES: The sclera were anicteric and conjunctiva were pink and moist. Extraocular movements were intact and pupils were equal round and reactive to light. Eyelids were unremarkable. PULMONARY: Unlabored respirations. Good breath sounds bilaterally. No audible rales rhonchi or wheezing was noted. CARDIOVASCULAR: There is a regular rate and rhythm without any murmurs gallops or rubs. Patient has some reproducible left-sided chest pain just under the left breast. ABDOMEN: Soft and nontender with normal bowel sounds. No palpable organomegaly was noted. There is no palpable pulsatile mass. SKIN: Skin is clear with no lesions or rashes and otherwise unremarkable. NEUROLOGIC: Patient is alert and oriented x3. Cranial nerves II through XII are grossly intact. Motor and sensory are also intact. Normal speech, volume and content. Symmetrical smile. MUSCULOSKELETAL: Normal extremities with adequate strength and full range of motion. No lower extremity swelling or edema. No calf tenderness. LYMPHATICS: No significant lymphadenopathy is noted PSYCHIATRIC: Normal psychiatric evaluation. Limitations: no limitations Course Vital Signs 10/20/17 10/20/17 10/20/17 09:10 09:38 10:45 Temperature 100.5 F H 100.9 F H Pulse Rate 95 104 H Respiratory 18 16 Rate Blood Pressure 153/86 140/80 O2 Sat by Pulse 100 96 Oximetry 10/20/17 11:47 Temperature 99.2 F Pulse Rate 98 Respiratory 16 Rate Blood Pressure 145/67 O2 Sat by Pulse 97 Oximetry Medical Decision Making - Medical Decision Making EKG shows normal sinus rhythm at 75 bpm VA interval is 122 QRS is 82 QT interval 368 QTC is 410. Patient's EKG shows no ST segment elevation or depression or T wave abnormalities are noted Chest x-ray shows no acute abnormality. Computed tomography scan shows a probable pulmonary embolism in the left subsegmental pulmonary branches. I started the patient heparin I admitted the patient to the hospitalist and consult Dr. Tobin I wrote admitting orders and continue the heparin on the floor - Lab Data Result diagrams: 10/20/17 09:50 10/20/17 09:50 Lab Results 10/20/17 10/20/17 10/20/17 Range/Units 09:50 09:50 09:50 WBC 12.7 H (3.8-10.6) k/uL RBC 4.78 (3.80-5.40) m/uL Hgb 12.9 (11.4-16.0) gm/dL Hct 38.4 (34.0-46.0) % MCV 80.3 (80.0-100.0) fL MCH 27.0 (25.0-35.0) pg MCHC 33.5 (31.0-37.0) g/dL RDW 13.7 (11.5-15.5) % Plt Count 336 (150-450) k/uL Neutrophils % 83 % Lymphocytes % 12 % Monocytes % 3 % Eosinophils % 1 % Basophils % 0 % Neutrophils # 10.5 H (1.3-7.7) k/uL Lymphocytes # 1.6 (1.0-4.8) k/uL Monocytes # 0.4 (0-1.0) k/uL Eosinophils # 0.1 (0-0.7) k/uL Basophils # 0.0 (0-0.2) k/uL PT 9.6 (9.0-12.0) sec INR 1.0 (<1.2) APTT 22.9 (22.0-30.0) sec D-Dimer 1.20 H (<0.60) mg/L FEU Sodium 143 (137-145) mmol/L Potassium 3.7 (3.5-5.1) mmol/L Chloride 102 (98-107) mmol/L Carbon Dioxide 28 (22-30) mmol/L Anion Gap 13 mmol/L BUN 13 (7-17) mg/dL Creatinine 0.60 (0.52-1.04) mg/dL Est GFR (CKD-EPI)AfAm >90 (>60 ml/min/1.73 sqM) Est GFR (CKD-EPI)NonAf >90 (>60 ml/min/1.73 sqM) Glucose 108 H (74-99) mg/dL Plasma Lactic Acid Gregorio (0.7-2.0) mmol/L Calcium 10.1 (8.4-10.2) mg/dL Total Bilirubin 0.6 (0.2-1.3) mg/dL AST 24 (14-36) U/L ALT 21 (9-52) U/L Alkaline Phosphatase 66 (38-126) U/L Total Creatine Kinase (30-135) U/L CK-MB (CK-2) (0.0-2.4) ng/mL CK-MB (CK-2) Rel Index Troponin I (0.000-0.034) ng/mL Total Protein 7.9 (6.3-8.2) g/dL Albumin 4.9 (3.5-5.0) g/dL Urine Color Urine Appearance (Clear) Urine pH (5.0-8.0) Ur Specific [place] (1.001-1.035) Urine Protein (Negative) Urine Glucose (UA) (Negative) Urine Ketones (Negative) Urine Blood (Negative) Urine Nitrite (Negative) Urine Bilirubin (Negative) Urine Urobilinogen (<2.0) mg/dL Ur Leukocyte Esterase (Negative) Urine WBC (0-5) /hpf Ur Squamous Epith Cells (0-4) /hpf Urine Bacteria (None) /hpf Urine Mucus (None) /hpf Influenza Type A RNA (Not Detectd) Influenza Type B (PCR) (Not Detectd) 10/20/17 10/20/17 10/20/17 Range/Units 09:50 09:50 09:50 WBC (3.8-10.6) k/uL RBC (3.80-5.40) m/uL Hgb (11.4-16.0) gm/dL Hct (34.0-46.0) % MCV (80.0-100.0) fL MCH (25.0-35.0) pg MCHC (31.0-37.0) g/dL RDW (11.5-15.5) % Plt Count (150-450) k/uL Neutrophils % % Lymphocytes % % Monocytes % % Eosinophils % % Basophils % % Neutrophils # (1.3-7.7) k/uL Lymphocytes # (1.0-4.8) k/uL Monocytes # (0-1.0) k/uL Eosinophils # (0-0.7) k/uL Basophils # (0-0.2) k/uL PT (9.0-12.0) sec INR (<1.2) APTT (22.0-30.0) sec D-Dimer (<0.60) mg/L FEU Sodium (137-145) mmol/L Potassium (3.5-5.1) mmol/L Chloride (98-107) mmol/L Carbon Dioxide (22-30) mmol/L Anion Gap mmol/L BUN (7-17) mg/dL Creatinine (0.52-1.04) mg/dL Est GFR (CKD-EPI)AfAm (>60 ml/min/1.73 sqM) Est GFR (CKD-EPI)NonAf (>60 ml/min/1.73 sqM) Glucose (74-99) mg/dL Plasma Lactic Acid Gregorio 1.2 (0.7-2.0) mmol/L Calcium (8.4-10.2) mg/dL Total Bilirubin (0.2-1.3) mg/dL AST (14-36) U/L ALT (9-52) U/L Alkaline Phosphatase (38-126) U/L Total Creatine Kinase 52 (30-135) U/L CK-MB (CK-2) 0.4 (0.0-2.4) ng/mL CK-MB (CK-2) Rel Index 0.8 Troponin I <0.012 (0.000-0.034) ng/mL Total Protein (6.3-8.2) g/dL Albumin (3.5-5.0) g/dL Urine Color Yellow Urine Appearance Cloudy H (Clear) Urine pH 5.5 (5.0-8.0) Ur Specific [place] 1.015 (1.001-1.035) Urine Protein Trace H (Negative) Urine Glucose (UA) Negative (Negative) Urine Ketones Negative (Negative) Urine Blood Negative (Negative) Urine Nitrite Negative (Negative) Urine Bilirubin Negative (Negative) Urine Urobilinogen <2.0 (<2.0) mg/dL Ur Leukocyte Esterase Negative (Negative) Urine WBC <1 (0-5) /hpf Ur Squamous Epith Cells 11 H (0-4) /hpf Urine Bacteria Many H (None) /hpf Urine Mucus Many H (None) /hpf Influenza Type A RNA (Not Detectd) Influenza Type B (PCR) (Not Detectd) 10/20/17 Range/Units 09:50 WBC (3.8-10.6) k/uL RBC (3.80-5.40) m/uL Hgb (11.4-16.0) gm/dL Hct (34.0-46.0) % MCV (80.0-100.0) fL MCH (25.0-35.0) pg MCHC (31.0-37.0) g/dL RDW (11.5-15.5) % Plt Count (150-450) k/uL Neutrophils % % Lymphocytes % % Monocytes % % Eosinophils % % Basophils % % Neutrophils # (1.3-7.7) k/uL Lymphocytes # (1.0-4.8) k/uL Monocytes # (0-1.0) k/uL Eosinophils # (0-0.7) k/uL Basophils # (0-0.2) k/uL PT (9.0-12.0) sec INR (<1.2) APTT (22.0-30.0) sec D-Dimer (<0.60) mg/L FEU Sodium (137-145) mmol/L Potassium (3.5-5.1) mmol/L Chloride (98-107) mmol/L Carbon Dioxide (22-30) mmol/L Anion Gap mmol/L BUN (7-17) mg/dL Creatinine (0.52-1.04) mg/dL Est GFR (CKD-EPI)AfAm (>60 ml/min/1.73 sqM) Est GFR (CKD-EPI)NonAf (>60 ml/min/1.73 sqM) Glucose (74-99) mg/dL Plasma Lactic Acid Gregorio (0.7-2.0) mmol/L Calcium (8.4-10.2) mg/dL Total Bilirubin (0.2-1.3) mg/dL AST (14-36) U/L ALT (9-52) U/L Alkaline Phosphatase (38-126) U/L Total Creatine Kinase (30-135) U/L CK-MB (CK-2) (0.0-2.4) ng/mL CK-MB (CK-2) Rel Index Troponin I (0.000-0.034) ng/mL Total Protein (6.3-8.2) g/dL Albumin (3.5-5.0) g/dL Urine Color Urine Appearance (Clear) Urine pH (5.0-8.0) Ur Specific [place] (1.001-1.035) Urine Protein (Negative) Urine Glucose (UA) (Negative) Urine Ketones (Negative) Urine Blood (Negative) Urine Nitrite (Negative) Urine Bilirubin (Negative) Urine Urobilinogen (<2.0) mg/dL Ur Leukocyte Esterase (Negative) Urine WBC (0-5) /hpf Ur Squamous Epith Cells (0-4) /hpf Urine Bacteria (None) /hpf Urine Mucus (None) /hpf Influenza Type A RNA Not Detected (Not Detectd) Influenza Type B (PCR) Not Detected (Not Detectd) Critical Care Time Critical Care Time: Yes Total Critical Care Time: 35 Disposition Clinical Impression: Pulmonary embolism Disposition: ADMITTED IP TO THIS HOSP Referrals: Juan J Tobin DO [Primary Care Provider] - 1-2 days Time of Disposition: 13:30
[2017-10-20 10:05] LABS: Basophils % (A) 0 %; Eosinophils # (A) 0.1 k/uL (0-0.7); Eosinophils % (A) 1 %; HCT 38.4 % (34.0-46.0); HGB 12.9 gm/dL (11.4-16.0); Lymphocytes # (A) 1.6 k/uL (1.0-4.8); Lymphocytes % (A) 12 %; MCHC 33.5 g/dL (31.0-37.0); MCV 80.3 fL (80.0-100.0); Mean Platelet Volume 7.7; Monocytes # (A) 0.4 k/uL (0-1.0); Monocytes % (A) 3 %; Neutrophils # (A) 10.5 k/uL (1.3-7.7); Neutrophils % (A) 83 %; Platelet Count 336 k/uL (150-450); RBC 4.78 m/uL (3.80-5.40); RDW 13.7 % (11.5-15.5); WBC 12.7 k/uL (3.8-10.6)
--- NOTE | 2017-10-20 10:07 | XR ---
EXAMINATION TYPE: XR chest 2V DATE OF EXAM: 10/20/2017 COMPARISON: 08/09/2016 HISTORY: Chest pain. TECHNIQUE: Frontal and lateral views of the chest are obtained. FINDINGS: Eventration of the hemidiaphragms is noted There is no focal air space opacity, pleural ef fusion, or pneumothorax seen. The cardiac silhouette size is within normal limits. The osseous str uctures are intact. Very minimal degenerative changes of the thoracic spine are seen. IMPRESSION: No acute cardiopulmonary process.
[2017-10-20 10:14] LABS: D-Dimer 1.2 mg/L FEU (<0.60)
[2017-10-20 10:18] LABS: Partial Thromboplastin Time 22.9 sec (22.0-30.0); Prothrombin Time 9.6 sec (9.0-12.0)
[2017-10-20 10:20] LABS: Appearance,Urine Cloudy (Clear); Bacteria,Urine Many /hpf; Bilirubin,Urine Negative (Negative); Blood,Urine Negative (Negative); Color,Urine Yellow; Glucose,Urine (UA) Negative (Negative); Ketones,Urine Negative (Negative); Leukocyte Esterase,Urine Negative (Negative); Mucus,Urine Many /hpf; Nitrite,Urine Negative (Negative); PH, Urine 5.5 (5.0-8.0); Protein,Urine Trace (Negative); Specific Gravity,Urine 1.015 (1.001-1.035); Squamous Epithelial Cell,Urine 11 /hpf (0-4); Urobilinogen,Urine <2.0 mg/dL (<2.0); WBC,Urine <1 /hpf (0-5)
[2017-10-20 10:26] LABS: ALT 21 U/L (9-52); AST 24 U/L (14-36); Albumin 4.9 g/dL (3.5-5.0); Alkaline Phosphatase 66 U/L (38-126); Anion Gap 13 mmol/L; Blood Urea Nitrogen 13 mg/dL (7-17); Calcium 10.1 mg/dL (8.4-10.2); Carbon Dioxide 28 mmol/L (22-30); Chloride 102 mmol/L (98-107); Creatine Kinase 52 U/L (30-135); Glucose 108 mg/dL (74-99); Potassium 3.7 mmol/L (3.5-5.1); Sodium 143 mmol/L (137-145); Total Bilirubin 0.6 mg/dL (0.2-1.3); Total Protein 7.9 g/dL (6.3-8.2)
[2017-10-20 10:36] LABS: Creatine Kinase MB 0.4 ng/mL (0.0-2.4)
[2017-10-20] MEDS ORDERED: LORazepam 2 MG/ML INJ IV STA (10:42)
--- NOTE | 2017-10-20 11:09 | US ---
EXAMINATION TYPE: US venous doppler duplex UE LT DATE OF EXAM: 10/20/2017 COMPARISON: US 10/13/2017 CLINICAL HISTORY: Pain. History of SVT in left Basilic vein SIDE PERFORMED: Left Grayscale, color doppler, spectral doppler imaging performed of the deep veins of the left upper ext remity. There is normal flow, compressibility and vascular waveforms. Left Arm: Negative for DVT. Positive for SVT in the left basilic vein IMPRESSION: No evidence of deep venous thrombosis within the left upper extremity. Superficial venous thrombosis is seen within the basilic vein.
[2017-10-20 11:11] LABS: Troponin I <0.012 ng/mL (0.000-0.034)
[2017-10-20 11:48] VITALS: RESP 16
[2017-10-20] MEDS ORDERED: RX INFO: IV CONTRAST WAS GIVEN 1 EACH MISC MISCELLANE PRN (11:51)
--- NOTE | 2017-10-20 12:58 | CT ---
EXAMINATION TYPE: CT chest angio for PE DATE OF EXAM: 10/20/2017 COMPARISON: NONE HISTORY: Known DVT in left arm. Chest pain and fever. CT DLP: 163.9 mGycm. Automated Exposure Control for Dose Reduction was Utilized. CONTRAST: CTA scan of the thorax is performed with IV Contrast, patient injected with 63 mL of Omnipaque 350, p ulmonary embolism protocol. MIP Images are created on CT scanner and reviewed. FINDINGS: LUNGS: The lungs are grossly clear, there is no concerning parenchymal mass or nodule identified. T here is no pleural effusion or pneumothorax seen. The tracheobronchial tree is patent. MEDIASTINUM: There is suspicion for pulmonary emboli that are subsegmental and small to the left lowe r lobe, however evaluation of the subsegmental pulmonary arteries is limited due to contrast timing. No central pulmonary embolus is seen. No secondary signs of heart failure. There is satisfactory enha ncement of the pulmonary artery and its branches, there is no CT evidence for pulmonary embolism. Th ere are no greater than 1 cm hilar or mediastinal lymph nodes. No cardiomegaly or pericardial effus ion is seen. OTHER: Solid appearing left upper pole 0.8 and 1.9 cm as well as a 1.8 cm additional mass and a 1.1 c m mass near the renal sinus are seen requiring further evaluation. Vertebral body hemangioma is seen with no focal suspicious sclerotic lesions. IMPRESSION: 1. Degree contrast filling is similar within the ascending aorta and main pulmonary artery, making ev aluation of the subsegmental pulmonary arteries suboptimal. There is suspicion however for small subs egmental pulmonary emboli to the left lower lobe. 2. Multiple hyperdense renal lesions for which further evaluation with renal ultrasound or MR is kaushik mmended to evaluate for solid vascular lesion such as renal cell carcinoma versus hyperdense cyst.
[2017-10-20] MEDS ORDERED: HEPARIN SODIUM,PORCINE 10,000 UNIT/ML 1 ML VIAL IV ONE (13:25)
[2017-10-20] MEDS ORDERED: HEPARIN SOD,PORK IN 0.45% NACL 25,000 UNIT in 0.45% NACL 1 500ML.BAG IV SCH (13:30)
[2017-10-20] MEDS ORDERED: SODIUM CHLORIDE 0.9% 1,000 ML IV ONE (13:37)
[2017-10-20] MEDS ORDERED: ALBUTEROL NEBULIZED 2.5 MG/3 ML INHALATION PRN (13:51)
--- NOTE | 2017-10-20 14:52 | P.HPIM ---
History of Present Illness 47-year-old female came in with compensative chest pain pleuritic in nature started today morning under the left breast area, nonradiating reproducible in nature denied any associated shortness of breath did have low-grade fever denied any cough runny nose denied in dysuria denied any diaphoresis had mild lightheadedness EKG is essentially within normal limits percent of troponin is negative. Patient had a CAT scan of the chest which was read as cannot rule out pulmonary embolism although I reviewed the CAT scan not impressive for any PE. There is no major segment PE. Patient had superficial thrombus which was diagnosed about a week ago was sent home on an assays this superficial thrombus was secondary to IV line that was placed in ER before that ER visit. CAT scan of the chest did not show any pneumonic process CVA is a contaminated urine sample with squamous epithelial cells Review of Systems REVIEW OF SYSTEMS: CONSTITUTIONAL: No fever, no malaise, no fatigue. HEENT: No recent visual problems or hearing problems. Denied any sore throat. CARDIOVASCULAR: No , orthopnea, PND, no palpitations, no syncope. PULMONARY: No shortness of breath, no cough, no hemoptysis. GASTROINTESTINAL: No diarrhea, no nausea, no vomiting, no abdominal pain. Normoactive bowel sounds. NEUROLOGICAL: No headaches, no weakness, no numbness. HEMATOLOGICAL: Denies any bleeding or petechiae. GENITOURINARY: Denies any burning micturition, frequency, or urgency. MUSCULOSKELETAL/RHEUMATOLOGICAL: Denies any joint pain, swelling, or any muscle pain. ENDOCRINE: Denies any polyuria or polydipsia. The rest of the 14-point review of systems is negative. Past Medical History Past Medical History: Asthma, GERD/Reflux, Hyperlipidemia Additional Past Medical History / Comment(s): PT STATES THE PAST 6 WEEKS SHE HAS HAD BILATERAL LEG PAIN, SHE STATES SHE HAS HAD LOW GRADE FEVERS FOR THE PAST FEW MONTHS. SHE STATES SHE RECENTLY HAD AN IV AND THEN HAD A "LUMP" IN THE L ANTECUBITAL AND WAS DIAGNOSED WITH SUPERFICIAL BLOOD CLOT. 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 History of Any Multi-Drug Resistant Organisms: None Reported Past Surgical History: Back Surgery Additional Past Surgical History / Comment(s): HYSTEROSCOPY/MYOMECTOMY- REMOVAL UTERINE FIBROIDS, TARLOV CYSTS ON SPINE DRAINED AND FILLED WITH BODY FAT (7 YEARS AGO), EGD/COLONOSCOPY, R ANKLE ORIF, BILATERAL LASER SURGERY FOR VISION CORRECTION, SPINAL CORD STIMULATOR INSERTION/REMOVAL. Past Anesthesia/Blood Transfusion Reactions: Motion Sickness, Postoperative Nausea & Vomiting (PONV) Smoking Status: Never smoker - Past Family History Sister(s) Family Medical History: Cancer Additional Family Medical History / Comment(s): THYROID CANCER Mother Family Medical History: Cancer Additional Family Medical History / Comment(s): PANCREATIC CANCER Father Family Medical History: Cancer, Hyperlipidemia Additional Family Medical History / Comment(s): LUNG CANCER Medications and Allergies Home Medications Medication Instructions Recorded Confirmed Type Montelukast [Singulair] 10 mg PO HS 10/29/14 10/20/17 History Simvastatin [Simvastatin] 20 mg PO HS 10/29/14 10/20/17 History fentaNYL [Fentanyl] 1 patch TOPICAL Q72H PRN 10/29/14 10/20/17 History oxyCODONE HCL/ACETAMINOPHEN 1 tab PO Q6HR PRN 10/29/14 10/20/17 History [Oxycodone-Acetaminophen 10-325] Budesonide/Formoterol Fumarate 2 puff INHALATION RT-BID PRN 03/20/16 10/20/17 History [Symbicort 160-4.5 Mcg Inhaler] Albuterol Inhaler [Ventolin Hfa 1 puff INHALATION RT-Q6H PRN 08/09/16 10/20/17 History Inhaler] Esomeprazole Magnesium [NexIUM] 20 mg PO DAILY 08/09/16 10/20/17 History ALPRAZolam [Xanax] 0.25 mg PO DAILY PRN 01/10/17 10/20/17 History Ketorolac [Toradol] 10 mg PO Q6HR #20 tab 10/06/17 10/20/17 Rx Ibuprofen [Motrin] 600 mg PO Q8HR PRN #30 tab 10/13/17 10/20/17 Rx Allergies Allergy/AdvReac Type Severity Reaction Status Date / Time No Known Allergies Allergy Verified 10/20/17 09:27 Physical Exam Vitals: Vital Signs Temp Pulse Resp BP Pulse Ox 10/20/17 14:08 86 16 147/75 99 10/20/17 13:28 88 16 148/66 100 10/20/17 11:47 99.2 F 98 16 145/67 97 10/20/17 10:45 104 H 16 140/80 96 10/20/17 09:38 100.9 F H 10/20/17 09:10 100.5 F H 95 18 153/86 100 Intake and Output 10/19/17 10/20/17 10/20/17 22:59 06:59 14:59 Other: Weight 65.771 kg PHYSICAL EXAMINATION: GENERAL: The patient is alert and oriented x3, not in any acute distress. Well developed, well nourished. HEENT: Pupils are round and equally reacting to light. EOMI. No scleral icterus. No conjunctival pallor. Normocephalic, atraumatic. No pharyngeal erythema. No thyromegaly. CARDIOVASCULAR: S1 and S2 present. No murmurs, rubs, or gallops. Patient's chest pain is reproducible. PULMONARY: Chest is clear to auscultation, no wheezing or crackles. ABDOMEN: Soft, nontender, nondistended, normoactive bowel sounds. No palpable organomegaly. MUSCULOSKELETAL: No joint swelling or deformity. EXTREMITIES: No cyanosis, clubbing, or pedal edema. NEUROLOGICAL: Gross neurological examination did not reveal any focal deficits. SKIN: No rashes. Results CBC & Chem 7: 10/20/17 09:50 10/20/17 09:50 Labs: Abnormal Lab Results - Last 24 Hours (Table) 10/20/17 10/20/17 10/20/17 Range/Units 09:50 09:50 09:50 WBC 12.7 H (3.8-10.6) k/uL Neutrophils # 10.5 H (1.3-7.7) k/uL D-Dimer 1.20 H (<0.60) mg/L FEU Glucose 108 H (74-99) mg/dL Urine Appearance (Clear) Urine Protein (Negative) Ur Squamous Epith Cells (0-4) /hpf Urine Bacteria (None) /hpf Urine Mucus (None) /hpf 10/20/17 Range/Units 09:50 WBC (3.8-10.6) k/uL Neutrophils # (1.3-7.7) k/uL D-Dimer (<0.60) mg/L FEU Glucose (74-99) mg/dL Urine Appearance Cloudy H (Clear) Urine Protein Trace H (Negative) Ur Squamous Epith Cells 11 H (0-4) /hpf Urine Bacteria Many H (None) /hpf Urine Mucus Many H (None) /hpf Thrombosis Risk Factor Assmnt - Choose All That Apply Any of the Below Risk Factors Present?: Yes Each Factor Represents 1 point: History of: Other Risk Factors: Yes Each Risk Factor Represents 3 Points: History of DVT/PE Other congenital or acquired thrombophilia - If yes, enter type in comment: No Thrombosis Risk Factor Assessment Total Risk Factor Score: 4 Thrombosis Risk Factor Assessment Level: Moderate Risk Assessment and Plan Plan: -Pleuritic chest pain: Reproducible probably musculoskeletal in nature, CAT scan of the chest not convincing for PE will also get the pulmonology opinion. Regarding this. Will also rule out acute coronary syndromes, 2 more troponins EKG essentially within normal limits and the this is atypical noncardiac chest pain. Patient will be continued on anti-coagulation until evaluation by pulmonary -Gastroesophageal reflux disease -hyperlipidemia -Asthma not in acute exacerbation -Chronic pain syndrome -Left the arm superficial thrombophlebitis -Fever with leukocytosis without any other signs or symptoms of sepsis patient will not be started on antibiotics we'll monitor For above-mentioned chronic medical problems patient will be resumed and continued on appropriate home medications
[2017-10-20 15:16] LABS: Basophils # (A) 0.1 k/uL (0-0.2); Basophils % (A) 0 %; Eosinophils # (A) 0.1 k/uL (0-0.7); Eosinophils % (A) 1 %; HCT 41.4 % (34.0-46.0); HGB 13.2 gm/dL (11.4-16.0); Lymphocytes # (A) 2.6 k/uL (1.0-4.8); Lymphocytes % (A) 18 %; MCH 26.1 pg (25.0-35.0); MCV 81.7 fL (80.0-100.0); Mean Platelet Volume 7.7; Monocytes # (A) 0.5 k/uL (0-1.0); Monocytes % (A) 3 %; Neutrophils # (A) 11.1 k/uL (1.3-7.7); Neutrophils % (A) 77 %; Platelet Count 341 k/uL (150-450); RBC 5.06 m/uL (3.80-5.40); RDW 13.6 % (11.5-15.5); WBC 14.4 k/uL (3.8-10.6)
--- NOTE | 2017-10-20 15:40 | P.CNPUL ---
History of Present Illness Consult date: 10/20/17 Reason for consult: pulmonary embolism, abnormal CXR/CT, other Chief complaint: Fever, chest pain History of present illness: Consult dated 10/20/2017 This is a 47-year-old female who I see as a primary. She apparently presented to the emergency department with 2 days of left arm pain and left chest pain mostly on palpation. The pain was reproducible. In addition, she apparently had some fever. Temperature was a bit over 100. She saw my partner maybe 10 days ago. She probably came into the office because of complete complaining of pain in the legs and thigh area. At that time she was slight temperature elevation. Dr. Luna sent her for a CAT scan of the abdomen and low back area and also sent her over for some blood work. Apparently everything came back normal. 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 Anyway today she said one into the emergency room with the above complaints. They did do a Doppler of the lower extremities which were negative. He also did a Doppler of the left upper extremity which showed a superficial basilic vein clot. No deep venous clot. And also did a CT angiogram which showed a small clot in the descending a pulmonary artery on the left. The patient is admitted for pulmonary embolism. Her medical history includes asthma hyperlipidemia chronic back pain and anxiety. Her ALLERGIES are denied. I see her about every 4-6 months in the office. She's been relatively stable at this point. Review of Systems A 12 point review of system is positive for left arm pain as well as reproducible left-sided and right-sided chest discomfort and a slight temperature elevation. Past Medical History Past Medical History: Asthma, GERD/Reflux, Hyperlipidemia Additional Past Medical History / Comment(s): PT STATES THE PAST 6 WEEKS SHE HAS HAD BILATERAL LEG PAIN, SHE STATES SHE HAS HAD LOW GRADE FEVERS FOR THE PAST FEW MONTHS. SHE STATES SHE RECENTLY HAD AN IV AND THEN HAD A "LUMP" IN THE L ANTECUBITAL AND WAS DIAGNOSED WITH SUPERFICIAL BLOOD CLOT. 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 History of Any Multi-Drug Resistant Organisms: None Reported Past Surgical History: Back Surgery Additional Past Surgical History / Comment(s): HYSTEROSCOPY/MYOMECTOMY- REMOVAL UTERINE FIBROIDS, TARLOV CYSTS ON SPINE DRAINED AND FILLED WITH BODY FAT (7 YEARS AGO), EGD/COLONOSCOPY, R ANKLE ORIF, BILATERAL LASER SURGERY FOR VISION CORRECTION, SPINAL CORD STIMULATOR INSERTION/REMOVAL. Past Anesthesia/Blood Transfusion Reactions: Motion Sickness, Postoperative Nausea & Vomiting (PONV) Smoking Status: Never smoker - Past Family History Sister(s) Family Medical History: Cancer Additional Family Medical History / Comment(s): THYROID CANCER Mother Family Medical History: Cancer Additional Family Medical History / Comment(s): PANCREATIC CANCER Father Family Medical History: Cancer, Hyperlipidemia Additional Family Medical History / Comment(s): LUNG CANCER Medications and Allergies Home Medications Medication Instructions Recorded Confirmed Type Montelukast [Singulair] 10 mg PO HS 10/29/14 10/20/17 History Simvastatin [Simvastatin] 20 mg PO HS 10/29/14 10/20/17 History fentaNYL [Fentanyl] 1 patch TOPICAL Q72H PRN 10/29/14 10/20/17 History oxyCODONE HCL/ACETAMINOPHEN 1 tab PO Q6HR PRN 10/29/14 10/20/17 History [Oxycodone-Acetaminophen 10-325] Budesonide/Formoterol Fumarate 2 puff INHALATION RT-BID PRN 03/20/16 10/20/17 History [Symbicort 160-4.5 Mcg Inhaler] Albuterol Inhaler [Ventolin Hfa 1 puff INHALATION RT-Q6H PRN 08/09/16 10/20/17 History Inhaler] Esomeprazole Magnesium [NexIUM] 20 mg PO DAILY 08/09/16 10/20/17 History ALPRAZolam [Xanax] 0.25 mg PO DAILY PRN 01/10/17 10/20/17 History Ketorolac [Toradol] 10 mg PO Q6HR #20 tab 10/06/17 10/20/17 Rx Ibuprofen [Motrin] 600 mg PO Q8HR PRN #30 tab 10/13/17 10/20/17 Rx Allergies Allergy/AdvReac Type Severity Reaction Status Date / Time No Known Allergies Allergy Verified 10/20/17 09:27 Physical Exam Osteopathic Statement: *. No significant issues noted on an osteopathic structural exam other than those noted in the History and Physical/Consult. Vitals: Vital Signs Temp Pulse Pulse Resp BP BP Pulse Ox 10/20/17 14:42 97.8 F 99 16 151/80 99 10/20/17 14:08 86 16 147/75 99 10/20/17 13:28 88 16 148/66 100 10/20/17 11:47 99.2 F 98 16 145/67 97 10/20/17 10:45 104 H 16 140/80 96 10/20/17 09:38 100.9 F H 10/20/17 09:10 100.5 F H 95 18 153/86 100 Intake and Output 10/20/17 10/20/17 10/20/17 06:59 14:59 22:59 Other: Weight 65.771 kg No acute distress, oriented 3. HEENT examination is grossly unremarkable. Mucous membranes are moist. No oral lesions. Neck supple. Full range of motion. No adenopathy thyromegaly or neck vein distention. Cardiovascular examination reveals regular rhythm rate. S1-S2 normal. No S3 or S4. No discernible murmur noted. Mild pain on palpation in the right and left parasternal areas of the anterior chest. Lungs reveal clear breath sounds. Her sounds are equal bilaterally. No adventitious lung sounds including wheezes rhonchi or crackles. Abdomen soft bowel sounds are heard. No masses or tenderness. Extremities are intact. No cyanosis clubbing or edema. Skin is without rash or lesion. Neurologic examination is brief but nonfocal. Results - Laboratory Findings CBC and BMP: 10/20/17 14:58 10/20/17 09:50 PT/INR, D-dimer PT 9.6 sec (9.0-12.0) 10/20/17 09:50 INR 1.0 (<1.2) 10/20/17 09:50 D-Dimer 1.20 mg/L FEU (<0.60) H 10/20/17 09:50 Abnormal lab findings: Abnormal Labs 10/20/17 10/20/17 10/20/17 09:50 09:50 09:50 WBC 12.7 H Neutrophils # 10.5 H D-Dimer 1.20 H Glucose 108 H Urine Appearance Urine Protein Ur Squamous Epith Cells Urine Bacteria Urine Mucus 10/20/17 10/20/17 09:50 14:58 WBC 14.4 H Neutrophils # 11.1 H D-Dimer Glucose Urine Appearance Cloudy H Urine Protein Trace H Ur Squamous Epith Cells 11 H Urine Bacteria Many H Urine Mucus Many H - Diagnostic Findings Chest x-ray: image reviewed CT scan - chest: image reviewed (Labs x-rays medications and CAT scans are all reviewed.) Assessment and Plan Assessment: Assessment Small pulmonary embolism left lower lobe Superficial thrombophlebitis of the left basilic vein History of asthma Hyperlipidemia ALLERGIC rhinitis Gastroesophageal reflux disease Anxiety History of chronic back pain secondary to Toprol assist Benign chronic renal lesions No evidence of lower extremity DVT Plan: Plan dated 10/20/2017 The patient can be started on a factor X a inhibitor today. She can probably be discharged home tomorrow. The clot is relatively small. I'll follow up with her in the office. The patient will be treated for at least 3 months. A computed tomography scan of the chest in about 8-10 weeks. Additional recommendations and suggestions are forthcoming. Medications are reviewed. Time with Patient: Greater than 30
[2017-10-20] MEDS ORDERED: ETODOLAC 400 MG TAB PO PRN (18:00)
[2017-10-20] MEDS: ALPRAZolam 0.25 MG TAB PO PRN (20:24)
[2017-10-20] MEDS: SYMBICORT 160-4.5 MCG INHALER INHALATION PRN (20:34)
[2017-10-20] MEDS ORDERED: MONTELUKAST 10 MG TAB PO SCH (21:00)
[2017-10-20] MEDS ORDERED: ATORVASTATIN 10 MG TAB PO SCH (21:00)
[2017-10-21 00:59] VITALS: TEMP 98.4
[2017-10-21 03:32] LABS: Anion Gap 12 mmol/L; Blood Urea Nitrogen 13 mg/dL (7-17); Carbon Dioxide 23 mmol/L (22-30); Chloride 108 mmol/L (98-107); Glucose 81 mg/dL (74-99); Potassium 3.7 mmol/L (3.5-5.1); Sodium 143 mmol/L (137-145)
[2017-10-21] MEDS: oxyCODONE-APAP 10-325MG 1 EACH TAB PO PRN ×2 (05:42→10:56)
[2017-10-21] MEDS ORDERED: PANTOPRAZOLE 40 MG TABLET PO SCH (07:30)
[2017-10-21] MEDS: SYMBICORT 160-4.5 MCG INHALER INHALATION PRN (08:33)
--- NOTE | 2017-10-21 08:51 | US ---
EXAMINATION TYPE: US venous doppler duplex LE BI DATE OF EXAM: 10/20/2017 5:01 PM COMPARISON: 10/13/2017 CLINICAL HISTORY: R/O DVT. Possible pulmonary embolism SIDE PERFORMED: Bilateral TECHNIQUE: The lower extremity deep venous system is examined utilizing real time linear array sonog josias with graded compression, doppler sonography and color-flow sonography. VESSELS IMAGED: External Iliac Vein (EIV) Common Femoral Vein Deep Femoral Vein Greater Saphenous Vein * Femoral Vein Popliteal Vein Small Saphenous Vein * Proximal Calf Veins (* superficial vessels) Grayscale, color doppler, spectral doppler imaging performed of the deep veins of the lower extremiti es. There is normal flow, compressibility, vascular waveforms. Right Leg: Negative for DVT Left Leg: Negative for DVT IMPRESSION: No evidence for DVT.
[2017-10-21] MEDS ORDERED: APIXABAN 5 MG TAB PO SCH (09:00)
[2017-10-21 09:12] VITALS: BP 113/73; PULSE 91
[2017-10-21] MEDS: ALPRAZolam 0.25 MG TAB PO PRN (09:16)
--- NOTE | 2017-10-21 11:01 | P.PN ---
Subjective Progress Note Date: 10/21/17 Principal diagnosis: Pulmonary embolism Progress note dated 10/21/2017 The patient seemed be doing relatively well. She will be transitioned to a factor X a inhibitor. She needs be treated for 3 months. Dopplers of lower semis were negative. CT angiogram revealed a small clot in the left lower lobe pulmonary artery. She's feeling well otherwise. The patient be discharged today. She can follow-up in my office. I will give her a date sometime in early October. She otherwise is doing well. She's my primary patient. She does have a history of asthma and sinus disease and of gastroesophageal reflux disease. She also has chronic back pain secondary to Tarlov's cyst. Objective - Vital Signs Vital signs: Vital Signs Temp 98.4 F 10/21/17 08:00 Pulse 91 10/21/17 08:00 Resp 16 10/21/17 08:00 BP 113/73 10/21/17 08:00 Pulse Ox 100 10/21/17 08:00 Intake & Output 10/20/17 10/21/17 10/21/17 18:59 06:59 18:59 Intake Total 600 398.984 Output Total 0 0 Balance 600 398.984 Weight 65.771 kg 64.5 kg Intake: Intake, IV Titration 158.984 Amount Heparin Sod,Pork in 0.45% 158.984 NaCl 25,000 unit In 0.45 % NaCl 1 500ml.bag @ 18 UNITS/KG/HR 23.67 mls/hr IV .Q21H8M ON LICENSE OF [facility] Rx#: [id number] Oral 600 240 Output: Urine 0 0 - Exam No acute distress, oriented 3. HEENT examination is grossly unremarkable. Mucous membranes are moist. No oral lesions. Neck supple. Full range of motion. No adenopathy thyromegaly or neck vein distention. Cardiovascular examination reveals regular rhythm rate. S1-S2 normal. No S3 or S4. No discernible murmur noted. Lungs reveal clear breath sounds. Her sounds are equal bilaterally. No adventitious lung sounds including wheezes rhonchi or crackles. Abdomen soft bowel sounds are heard. No masses or tenderness. Extremities are intact. No cyanosis clubbing or edema. Skin is without rash or lesion. Neurologic examination is brief but nonfocal. - Labs CBC & Chem 7: 10/20/17 14:58 10/21/17 02:52 Labs: Abnormal Lab Results - Last 24 Hours (Table) 10/20/17 10/20/17 10/21/17 Range/Units 14:58 20:26 02:52 WBC 14.4 H (3.8-10.6) k/uL Neutrophils # 11.1 H (1.3-7.7) k/uL APTT 87.2 H (22.0-30.0) sec Chloride 108 H (98-107) mmol/L Creatinine 0.50 L (0.52-1.04) mg/dL 10/21/17 Range/Units 02:52 WBC (3.8-10.6) k/uL Neutrophils # (1.3-7.7) k/uL APTT 69.8 H (22.0-30.0) sec Chloride (98-107) mmol/L Creatinine (0.52-1.04) mg/dL Microbiology - Last 24 Hours (Table) 10/20/17 09:50 Urine Culture - Preliminary Urine,Voided Assessment and Plan Assessment: Assessment Small pulmonary embolism left lower lobe Superficial thrombophlebitis of the left basilic vein History of asthma Hyperlipidemia ALLERGIC rhinitis Gastroesophageal reflux disease Anxiety History of chronic back pain secondary to Toprol assist Benign chronic renal lesions No evidence of lower extremity DVT Plan: Plan dated 10/20/2017 The patient can be started on a factor X a inhibitor today. She can probably be discharged home tomorrow. The clot is relatively small. I'll follow up with her in the office. The patient will be treated for at least 3 months. A computed tomography scan of the chest in about 8-10 weeks. Additional recommendations and suggestions are forthcoming. Medications are reviewed. Plan dated 10/21/2017 The patient's doing well. The patient could be discharged today. We'll wait and see with the primary wants to do. She should be discharged on a factor X a inhibitor. She should be treated for a total of 3 months. I'll make sure that I see her in the office in follow-up. Dopplers of lower extremities were negative. We'll continue to follow. She'll see me sometime in early October. Time with Patient: Less than 30
--- NOTE | 2017-10-21 11:29 | P.DS ---
Providers Date of admission: 10/20/17 13:37 Attending physician: Mauricio Hatch Consults: 10/20/17 13:37 Consult Physician Urgent Consulting Provider: Juan J Tobin Consult Reason/Comments: Pulmonary embolism Do you want consulting provider notified?: Yes Primary care physician: Juan J Tobin Hospital Course: Patient was admitted with chest pain pleuritic in nature. CAT scan was read as small pulmonary embolism cannot be ruled out, considering her symptoms pulmonary valid the patient is recommending anti-correlation for 3 months. Patient does have superficial thrombophlebitis on the left arm. Patient has chronic leukocytosis and chronic low-grade fevers has been going on for years and chronic low back problems. Patient will be referred to Dr. Gray for further evaluation for chronic leukocytosis and fevers starting with evaluation for chronic infections and may need evaluation for lymphomas she continues to have fever. Patient denied any weight loss PHYSICAL EXAMINATION: GENERAL: The patient is alert and oriented x3, not in any acute distress. Well developed, well nourished. HEENT: Pupils are round and equally reacting to light. EOMI. No scleral icterus. No conjunctival pallor. Normocephalic, atraumatic. No pharyngeal erythema. No thyromegaly. CARDIOVASCULAR: S1 and S2 present. No murmurs, rubs, or gallops. PULMONARY: Chest is clear to auscultation, no wheezing or crackles. ABDOMEN: Soft, nontender, nondistended, normoactive bowel sounds. No palpable organomegaly. MUSCULOSKELETAL: No joint swelling or deformity. EXTREMITIES: No cyanosis, clubbing, or pedal edema. NEUROLOGICAL: Gross neurological examination did not reveal any focal deficits. SKIN: No rashes. For other chronic medical problems hospitalization course please refer to my history and physical from yesterday. Plan - Discharge Summary Discharge Rx Participant: No New Discharge Prescriptions: New Apixaban [Eliquis] 10 mg PO BID 7 Days #14 tab Apixaban [Eliquis] 5 mg PO BID 30 Days #30 tab No Action Montelukast [Singulair] 10 mg PO HS oxyCODONE HCL/ACETAMINOPHEN [Oxycodone-Acetaminophen 10-325] 1 tab PO Q6HR PRN PRN Reason: Pain fentaNYL [Fentanyl] 1 patch TOPICAL Q72H PRN PRN Reason: Pain Simvastatin [Simvastatin] 20 mg PO HS Budesonide/Formoterol Fumarate [Symbicort 160-4.5 Mcg Inhaler] 2 puff INHALATION RT-BID PRN PRN Reason: ALLERGY SEASON Albuterol Inhaler [Ventolin Hfa Inhaler] 1 puff INHALATION RT-Q6H PRN PRN Reason: Shortness Of Breath Esomeprazole Magnesium [NexIUM] 20 mg PO DAILY ALPRAZolam [Xanax] 0.25 mg PO DAILY PRN PRN Reason: Anxiety Ketorolac [Toradol] 10 mg PO Q6HR #20 tab Ibuprofen [Motrin] 600 mg PO Q8HR PRN #30 tab PRN Reason: Pain Discharge Medication List Montelukast [Singulair] 10 mg PO HS 10/29/14 [History] Simvastatin [Simvastatin] 20 mg PO HS 10/29/14 [History] fentaNYL [Fentanyl] 1 patch TOPICAL Q72H PRN 10/29/14 [History] oxyCODONE HCL/ACETAMINOPHEN [Oxycodone-Acetaminophen 10-325] 1 tab PO Q6HR PRN 10/29/14 [History] Budesonide/Formoterol Fumarate [Symbicort 160-4.5 Mcg Inhaler] 2 puff INHALATION RT-BID PRN 03/20/16 [History] Albuterol Inhaler [Ventolin Hfa Inhaler] 1 puff INHALATION RT-Q6H PRN 08/09/16 [ History] Esomeprazole Magnesium [NexIUM] 20 mg PO DAILY 08/09/16 [History] ALPRAZolam [Xanax] 0.25 mg PO DAILY PRN 01/10/17 [History] Ketorolac [Toradol] 10 mg PO Q6HR #20 tab 10/06/17 [Rx] Ibuprofen [Motrin] 600 mg PO Q8HR PRN #30 tab 10/13/17 [Rx] Apixaban [Eliquis] 5 mg PO BID 30 Days #30 tab 10/21/17 [Rx] Apixaban [Eliquis] 10 mg PO BID 7 Days #14 tab 10/21/17 [Rx] Follow up Appointment(s)/Referral(s): Beltran Gray MD [STAFF PHYSICIAN] - 11/03/17 3:30 pm Juan J Tobin DO [Primary Care Provider] - 10/31/17 11:15 am Patient Instructions/Handouts: Pulmonary Embolism (DC), Computed Tomography Scan (DC), Safe Use of Anticoagulants (DC) Discharge Disposition: HOME SELF-CARE
== END 2017-10-21 12:50 | disposition home or self-care (01) | DRG 176 ==
LOC: EC 09:08 → 6SEL 13:37
PROVIDERS: ADMIT Internal Medicine; ATTEND Internal Medicine
DX: I26.99 Other pulmonary embolism without acute cor pulmonale (principal); I80.8 Phlebitis and thrombophlebitis of other sites; T80.1XXA Vascular complications following infusion, transfusion and therapeutic injection, initial encounter; D72.829 Elevated white blood cell count, unspecified; E78.5 Hyperlipidemia, unspecified; F41.9 Anxiety disorder, unspecified; G89.4 Chronic pain syndrome; J45.909 Unspecified asthma, uncomplicated; K21.9 Gastro-esophageal reflux disease without esophagitis; M54.5 Low back pain; R50.9 Fever, unspecified; R07.89 Other chest pain; Z79.51 Long term (current) use of inhaled steroids; Z79.899 Other long term (current) drug therapy
CPT/HCPCS: 36415; 71046; 71275; 80048; 80053; 81001; 82550; 82553; 83605; 84484; 85025; 85379; 85610; 85730; 87040; 87086; 87502; 93005; 93970; 94640; 96365; 96375; 96376; 99291

== ENCOUNTER 2017-11-01 12:13 | Emergency (ER) | payer BC ==
[2017-11-01] MEDS ORDERED: SODIUM CHLORIDE 0.9% 1,000 ML IV STA (13:02)
[2017-11-01 13:34] LABS: Basophils % (A) 0 %; Eosinophils # (A) 0.1 k/uL (0-0.7); Eosinophils % (A) 1 %; HCT 37.3 % (34.0-46.0); HGB 12.4 gm/dL (11.4-16.0); Lymphocytes % (A) 10 %; MCH 26.6 pg (25.0-35.0); MCHC 33.3 g/dL (31.0-37.0); Monocytes # (A) 0.2 k/uL (0-1.0); Monocytes % (A) 2 %; Neutrophils # (A) 8.7 k/uL (1.3-7.7); Neutrophils % (A) 86 %; Platelet Count 356 k/uL (150-450); RBC 4.67 m/uL (3.80-5.40); RDW 13.5 % (11.5-15.5); WBC 10.1 k/uL (3.8-10.6)
--- NOTE | 2017-11-01 13:40 | ED ---
General Adult HPI - General Chief complaint: Abdominal Pain Stated complaint: Hx pul emb/epigastric pain Time Seen by Provider: 11/01/17 12:48 Source: patient, RN notes reviewed Mode of arrival: ambulatory Limitations: no limitations - History of Present Illness Initial comments: Patient 47-year-old female presenting to the emergency room today with a chief complaint of upper abdominal pain over the last 4-5 days. She states it got much worse after 2 days ago when she was eating a lot of food for the holiday. Patient states that symptoms increased after eating. Patient does admit that pain is located in epigastric right upper quadrant. She states she saw her family physician about this week ago and was scheduled to have an outpatient ultrasound. She states she cannot wait next week as pain seems to be increasing. Patient currently rates it a 02/07. She doesn't feeling nauseated. Denies any other complaints or symptoms at this time. Patient denies any recent fever, chills, shortness of breath, chest pain, back pain, dysuria or hematuria, constipation or diarrhea, headaches or visual changes, or any other complaints. - Related Data Home Medications Medication Instructions Recorded Confirmed Montelukast [Singulair] 10 mg PO HS 10/29/14 11/01/17 Simvastatin [Simvastatin] 20 mg PO HS 10/29/14 11/01/17 fentaNYL [Fentanyl] 100 mcg TOPICAL Q72H 10/29/14 11/01/17 oxyCODONE HCL/ACETAMINOPHEN 1 tab PO Q6HR PRN 10/29/14 11/01/17 [Oxycodone-Acetaminophen 10-325] Budesonide/Formoterol Fumarate 2 puff INHALATION RT-DAILY 03/20/16 11/01/17 [Symbicort 160-4.5 Mcg Inhaler] Albuterol Inhaler [Ventolin Hfa 1 puff INHALATION RT-Q6H PRN 08/09/16 11/01/17 Inhaler] Esomeprazole Magnesium [NexIUM] 20 mg PO DAILY 08/09/16 11/01/17 ALPRAZolam [Xanax] 0.25 mg PO DAILY PRN 01/10/17 11/01/17 Sertraline HCl [Zoloft] 50 mg PO DAILY 11/01/17 11/01/17 Previous Rx's Medication Instructions Recorded Apixaban [Eliquis] 5 mg PO BID 30 Days #30 tab 03/23/18 Allergies Allergy/AdvReac Type Severity Reaction Status Date / Time No Known Allergies Allergy Verified 11/01/17 13:31 Review of Systems ROS Statement: Those systems with pertinent positive or pertinent negative responses have been documented in the HPI. ROS Other: All systems not noted in ROS Statement are negative. Past Medical History Past Medical History: Asthma, GERD/Reflux, Hyperlipidemia Additional Past Medical History / Comment(s): PT STATES THE PAST 6 WEEKS SHE HAS HAD BILATERAL LEG PAIN, SHE STATES SHE HAS HAD LOW GRADE FEVERS FOR THE PAST FEW MONTHS. SHE STATES SHE RECENTLY HAD AN IV AND THEN HAD A "LUMP" IN THE L ANTECUBITAL AND WAS DIAGNOSED WITH SUPERFICIAL BLOOD CLOT. 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 History of Any Multi-Drug Resistant Organisms: None Reported Past Surgical History: Back Surgery Additional Past Surgical History / Comment(s): HYSTEROSCOPY/MYOMECTOMY- REMOVAL UTERINE FIBROIDS, TARLOV CYSTS ON SPINE DRAINED AND FILLED WITH BODY FAT (7 YEARS AGO), EGD/COLONOSCOPY, R ANKLE ORIF, BILATERAL LASER SURGERY FOR VISION CORRECTION, SPINAL CORD STIMULATOR INSERTION/REMOVAL. Past Anesthesia/Blood Transfusion Reactions: Motion Sickness, Postoperative Nausea & Vomiting (PONV) Past Psychological History: Anxiety Smoking Status: Never smoker Past Alcohol Use History: None Reported Past Drug Use History: None Reported - Past Family History Sister(s) Family Medical History: Cancer Additional Family Medical History / Comment(s): THYROID CANCER Mother Family Medical History: Cancer Additional Family Medical History / Comment(s): PANCREATIC CANCER Father Family Medical History: Cancer, Hyperlipidemia Additional Family Medical History / Comment(s): LUNG CANCER General Exam - General Exam Comments Initial Comments: General: The patient is awake and alert, in no distress, and does not appear acutely ill. Eye: Pupils are equal, round and reactive to light, extra-ocular movements are intact. No nystagmus. There is normal conjunctiva bilaterally. No signs of icterus. Ears, nose, mouth and throat: There are moist mucous membranes and no oral lesions. Neck: The neck is supple, there is no tenderness or JVD. Cardiovascular: There is a regular rate and rhythm. No murmur, rub or gallop is appreciated. Respiratory: Lungs are clear to auscultation, respirations are non-labored, breath sounds are equal. No wheezes, stridor, rales, or rhonchi. Gastrointestinal: Patient does have tenderness epigastric and right quadrant. Rebound tenderness. No guarding. No CVA tenderness. Musculoskeletal: Normal ROM, no tenderness. Strength 5/5. Sensation intact. Pulses equal bilaterally 2+. Neurological: A&O x 3. CN II-XII intact, There are no obvious motor or sensory deficits. Coordination appears grossly intact. Speech is normal. Skin: Skin is warm and dry and no rashes or lesions are noted. Psychiatric: Cooperative, appropriate mood & affect, normal judgment. Limitations: no limitations Course Vital Signs 11/01/17 12:23 Temperature 99.2 F Pulse Rate 93 Respiratory 18 Rate Blood Pressure 139/79 O2 Sat by Pulse 100 Oximetry Medical Decision Making - Medical Decision Making Patient's labs been reviewed are unremarkable. Patient's ultrasound shows evidence for cholelithiasis. No evidence for acute cholecystitis. Results were discussed with patient. Patient feels comfortable being discharged to follow-up with her family doctor will also be given on-call surgeon. Patient advised to return to emergency room symptoms increase or worsen or for any other concerns. - Lab Data Result diagrams: 11/01/17 13:25 11/01/17 13:25 Lab Results 11/01/17 11/01/17 11/01/17 Range/Units 13:25 13:25 13:25 WBC 10.1 (3.8-10.6) k/uL RBC 4.67 (3.80-5.40) m/uL Hgb 12.4 (11.4-16.0) gm/dL Hct 37.3 (34.0-46.0) % MCV 80.0 (80.0-100.0) fL MCH 26.6 (25.0-35.0) pg MCHC 33.3 (31.0-37.0) g/dL RDW 13.5 (11.5-15.5) % Plt Count 356 (150-450) k/uL Neutrophils % 86 % Lymphocytes % 10 % Monocytes % 2 % Eosinophils % 1 % Basophils % 0 % Neutrophils # 8.7 H (1.3-7.7) k/uL Lymphocytes # 1.0 (1.0-4.8) k/uL Monocytes # 0.2 (0-1.0) k/uL Eosinophils # 0.1 (0-0.7) k/uL Basophils # 0.0 (0-0.2) k/uL PT 10.0 (9.0-12.0) sec INR 1.0 (<1.2) APTT 25.2 (22.0-30.0) sec Sodium 145 (137-145) mmol/L Potassium 3.8 (3.5-5.1) mmol/L Chloride 104 (98-107) mmol/L Carbon Dioxide 25 (22-30) mmol/L Anion Gap 16 mmol/L BUN 11 (7-17) mg/dL Creatinine 0.59 (0.52-1.04) mg/dL Est GFR (CKD-EPI)AfAm >90 (>60 ml/min/1.73 sqM) Est GFR (CKD-EPI)NonAf >90 (>60 ml/min/1.73 sqM) Glucose 113 H (74-99) mg/dL Calcium 9.9 (8.4-10.2) mg/dL Total Bilirubin 0.4 (0.2-1.3) mg/dL AST 23 (14-36) U/L ALT 19 (9-52) U/L Alkaline Phosphatase 66 (38-126) U/L Total Protein 7.7 (6.3-8.2) g/dL Albumin 4.8 (3.5-5.0) g/dL Amylase 89 (30-110) U/L Lipase 53 (23-300) U/L Urine Color Urine Appearance (Clear) Urine pH (5.0-8.0) Ur Specific Malcom (1.001-1.035) Urine Protein (Negative) Urine Glucose (UA) (Negative) Urine Ketones (Negative) Urine Blood (Negative) Urine Nitrite (Negative) Urine Bilirubin (Negative) Urine Urobilinogen (<2.0) mg/dL Ur Leukocyte Esterase (Negative) Urine RBC (0-5) /hpf Urine WBC (0-5) /hpf Ur Squamous Epith Cells (0-4) /hpf Urine Mucus (None) /hpf 11/01/17 Range/Units 13:30 WBC (3.8-10.6) k/uL RBC (3.80-5.40) m/uL Hgb (11.4-16.0) gm/dL Hct (34.0-46.0) % MCV (80.0-100.0) fL MCH (25.0-35.0) pg MCHC (31.0-37.0) g/dL RDW (11.5-15.5) % Plt Count (150-450) k/uL Neutrophils % % Lymphocytes % % Monocytes % % Eosinophils % % Basophils % % Neutrophils # (1.3-7.7) k/uL Lymphocytes # (1.0-4.8) k/uL Monocytes # (0-1.0) k/uL Eosinophils # (0-0.7) k/uL Basophils # (0-0.2) k/uL PT (9.0-12.0) sec INR (<1.2) APTT (22.0-30.0) sec Sodium (137-145) mmol/L Potassium (3.5-5.1) mmol/L Chloride (98-107) mmol/L Carbon Dioxide (22-30) mmol/L Anion Gap mmol/L BUN (7-17) mg/dL Creatinine (0.52-1.04) mg/dL Est GFR (CKD-EPI)AfAm (>60 ml/min/1.73 sqM) Est GFR (CKD-EPI)NonAf (>60 ml/min/1.73 sqM) Glucose (74-99) mg/dL Calcium (8.4-10.2) mg/dL Total Bilirubin (0.2-1.3) mg/dL AST (14-36) U/L ALT (9-52) U/L Alkaline Phosphatase (38-126) U/L Total Protein (6.3-8.2) g/dL Albumin (3.5-5.0) g/dL Amylase (30-110) U/L Lipase (23-300) U/L Urine Color Colorless Urine Appearance Clear (Clear) Urine pH 6.5 (5.0-8.0) Ur Specific Malcom 1.004 (1.001-1.035) Urine Protein Negative (Negative) Urine Glucose (UA) Negative (Negative) Urine Ketones Negative (Negative) Urine Blood Small H (Negative) Urine Nitrite Negative (Negative) Urine Bilirubin Negative (Negative) Urine Urobilinogen <2.0 (<2.0) mg/dL Ur Leukocyte Esterase Negative (Negative) Urine RBC <1 (0-5) /hpf Urine WBC <1 (0-5) /hpf Ur Squamous Epith Cells <1 (0-4) /hpf Urine Mucus Rare H (None) /hpf Disposition Clinical Impression: Abdominal pain, Biliary colic Disposition: HOME SELF-CARE Condition: Good Instructions: Abdominal Pain (ED) Additional Instructions: Please use medication as discussed. Please follow-up with general surgeon/ family doctor in the next 2 days of symptoms have not improved. Please return to emergency room if the symptoms increase or worsen or for any other concerns. Referrals: Juan J Tobin DO [Primary Care Provider] - 1-2 days Inna Craft MD [STAFF PHYSICIAN] - 1-2 days Time of Disposition: 15:11
[2017-11-01 13:43] LABS: Albumin 4.8 g/dL (3.5-5.0); Anion Gap 16 mmol/L; Blood Urea Nitrogen 11 mg/dL (7-17); Calcium 9.9 mg/dL (8.4-10.2); Carbon Dioxide 25 mmol/L (22-30); Chloride 104 mmol/L (98-107); Glucose 113 mg/dL (74-99); Potassium 3.8 mmol/L (3.5-5.1); Sodium 145 mmol/L (137-145); Total Protein 7.7 g/dL (6.3-8.2)
[2017-11-01 13:44] LABS: ALT 19 U/L (9-52); AST 23 U/L (14-36); Alkaline Phosphatase 66 U/L (38-126); Amylase 89 U/L (30-110); Lipase 53 U/L (23-300); Total Bilirubin 0.4 mg/dL (0.2-1.3)
[2017-11-01 13:47] LABS: Appearance,Urine Clear (Clear); Bilirubin,Urine Negative (Negative); Blood,Urine Small (Negative); Color,Urine Colorless; Glucose,Urine (UA) Negative (Negative); Ketones,Urine Negative (Negative); Leukocyte Esterase,Urine Negative (Negative); Mucus,Urine Rare /hpf; Nitrite,Urine Negative (Negative); PH, Urine 6.5 (5.0-8.0); Protein,Urine Negative (Negative); RBC,Urine <1 /hpf (0-5); Specific Gravity,Urine 1.004 (1.001-1.035); Squamous Epithelial Cell,Urine <1 /hpf (0-4); Urobilinogen,Urine <2.0 mg/dL (<2.0); WBC,Urine <1 /hpf (0-5)
[2017-11-01 13:47] LABS: Partial Thromboplastin Time 25.2 sec (22.0-30.0)
--- NOTE | 2017-11-01 13:59 | US ---
EXAMINATION TYPE: US abdomen limited DATE OF EXAM: 11/01/2017 COMPARISON: CT CLINICAL HISTORY: Pain. Pt states epigastric pain EXAM MEASUREMENTS: Liver Length: 14.7 cm Gallbladder Wall: 0.2 cm CBD: 0.5 cm Right Kidney: 9.8 x 3.7 x 3.8 cm Pancreas: Limited by overlying bowel gas Liver: wnl Gallbladder: Lumen clear, slightly distended, otherwise appeared wnl Evidence for sonographic Poole's sign: No CBD: wnl Right Kidney: wnl IMPRESSION: 1. There is a slight distention of the gallbladder but no definite wall thickening or cholelithiasis.
[2017-11-01 15:18] VITALS: BP 127/59; PULSE 70; RESP 14; TEMP 99
== END 2017-11-01 15:31 | disposition home or self-care (01) ==
LOC: EC 12:13
DX: K80.70 Calculus of gallbladder and bile duct without cholecystitis without obstruction (principal); J45.909 Unspecified asthma, uncomplicated; K21.9 Gastro-esophageal reflux disease without esophagitis; E78.5 Hyperlipidemia, unspecified; F41.9 Anxiety disorder, unspecified; Z98.890 Other specified postprocedural states; Z79.51 Long term (current) use of inhaled steroids; Z79.899 Other long term (current) drug therapy
CPT/HCPCS: 36415; 76705; 80053; 81001; 82150; 83690; 85025; 85610; 85730; 96360; 99284

== ENCOUNTER → 2017-11-17 | Outpatient (CLI) | payer BC ==
[2017-11-16 15:05] VITALS: BMI 25.7
[2017-11-17 13:29] VITALS: BP 133/72; PULSE 92; RESP 16
--- NOTE | 2017-11-17 15:37 | P.CONS ---
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, she continued to have coccydynia, and low back pain with radiation to the lower extremities, patient denies any motor or sensory deficit, she denies any fever or night sweats, and there is no change in the bowel movement or urination, she is currently on fentanyl patch 100 g every 72 hours, and she is on Percocet 10/325 every 6 hours and alprazolam 0.25 every 8 hours when necessary, she denies any side effect of the medication, she denies any excessive drowsiness or sleepiness, and she reported the current medication helping her to control her pain, she was referred to [facility] pain clinic because of her overdose risk score was 450. Past Medical History Past Medical History: Asthma, GERD/Reflux, Hyperlipidemia, Pulmonary Embolus (PE ) Additional Past Medical History / Comment(s): PE September-AND WAS ADMITTED OVERNIGHT.PT STATES THE PAST 6 WEEKS SHE HAS HAD BILATERAL LEG PAIN, SHE STATES SHE HAS HAD LOW GRADE FEVERS FOR THE PAST FEW MONTHS. SHE STATES SHE RECENTLY HAD AN IV AND THEN HAD A "LUMP" IN THE L ANTECUBITAL AND WAS DIAGNOSED WITH SUPERFICIAL BLOOD CLOT. OTHER HX; TARLOV CYSTS ON SPINE WITH LOW BACK PAIN/ PELVIC PAIN, BENIGN LESIONS ON KIDNEYS, HX OF ELEVATED D-DIMER (FAMILY MEMBERS ALSO HAVE ELEVATED D-DIMER), SEASONAL ALLERGIES. History of Any Multi-Drug Resistant Organisms: None Reported Past Surgical History: Back Surgery, Orthopedic Surgery Additional Past Surgical History / Comment(s): HYSTEROSCOPY/MYOMECTOMY- REMOVAL UTERINE FIBROIDS, TARLOV CYSTS ON SPINE DRAINED AND FILLED WITH BODY FAT (7 YEARS AGO), EGD/COLONOSCOPY, R ANKLE ORIF, BILATERAL LASER SURGERY FOR VISION CORRECTION, SPINAL SPINAL CORD STIMULATOR INSERTION/REMOVAL. Past Anesthesia/Blood Transfusion Reactions: Motion Sickness, Postoperative Nausea & Vomiting (PONV) Past Psychological History: Anxiety Additional Psychological History / Comment(s): PT RESIDES WITH HER 10 YR OLD DAUGHTER. SHE IS INDEPENDENT. Smoking Status: Never smoker Past Alcohol Use History: None Reported Past Drug Use History: None Reported - Past Family History Sister(s) Family Medical History: Cancer Additional Family Medical History / Comment(s): THYROID CANCER Mother Family Medical History: Cancer Additional Family Medical History / Comment(s): PANCREATIC CANCER Father Family Medical History: Cancer, Hyperlipidemia Additional Family Medical History / Comment(s): LUNG CANCER Medications and Allergies Home Medications Medication Instructions Recorded Confirmed Type Montelukast [Singulair] 10 mg PO HS 10/29/14 11/17/17 History Simvastatin [Simvastatin] 20 mg PO HS 10/29/14 11/17/17 History fentaNYL [Fentanyl] 100 mcg TOPICAL Q72H 10/29/14 11/17/17 History oxyCODONE HCL/ACETAMINOPHEN 1 tab PO Q6HR PRN 10/29/14 11/17/17 History [Oxycodone-Acetaminophen 10-325] Budesonide/Formoterol Fumarate 2 puff INHALATION RT-DAILY 03/20/16 11/17/17 History [Symbicort 160-4.5 Mcg Inhaler] Albuterol Inhaler [Ventolin Hfa 1 puff INHALATION RT-Q6H PRN 08/09/16 11/17/17 History Inhaler] Esomeprazole Magnesium [NexIUM] 20 mg PO DAILY 08/09/16 11/17/17 History ALPRAZolam [Xanax] 0.25 mg PO DAILY PRN 01/10/17 11/17/17 History Apixaban [Eliquis] 5 mg PO BID 30 Days #30 tab 10/21/17 11/17/17 Rx Sertraline HCl [Zoloft] 50 mg PO DAILY 11/01/17 11/17/17 History Allergies Allergy/AdvReac Type Severity Reaction Status Date / Time No Known Allergies Allergy Verified 11/17/17 13:10 Physical Exam Vitals: Vital Signs Pulse Resp BP Pulse Ox 11/17/17 13:12 92 16 133/72 98 Social history : not smoker , NO ETOH , NO Illegal drugs use Review of Systems : 1- Constitutional : no chills , no fever , no night sweats , 2- Ears : no ear discharge , no change in hearing 3-Nose, Mouth ,Throat ; no bleeding gums, no sore throat , no epistaxis , 4-Cardiovascular : Denies chest pain, , no orthopnea , no palpitation 5-Respiratory : Denies cough , no dyspnea , no hemoptysis 6-Gastrointestinal :, no change in bowel habits , no coffee- ground emesis . 7-Genitourinary : No hematuria , no discharge , no incontinence, 8-Musculoskeletal : No gait dysfunction , report low back pain , 9- Neurological : no ataxia , no tremor , no sezure , 10-Psychatric , no suicidal ideation no hallucination 11- Endocrine : no cold intolerence , no polyuria , no polydypsia , 12-Hematologic : no easy bleeding , no easy brusing , 13-Allergic / immunology : no angioedema , no wheezing ,no allergic rhinitis 14-Integumentary : no brttle nails , no change hair / nails , no foot/leg ulcers . Physical Examinations : 1-Constitutional : Cooperative , not in acute distress . 2-HEENT : nech ; supple , no Lymphadenopathy , no Thyromegaly , :eyes , no icterus, no photophobia . ENT : , normal oropharynx , no Thrush 3- Respiratory : Chest clear to auscultations Bilaterally , no wheezing . 4- Cardiovascular : regular rate and rhythem , S1 , S2 , no S3 , no S4. 5- Gastrointestinal: abdomen soft no tenderness , no organomegally . 6- Genitourinary : Defferred . 7-Integumentary : No cellulitis , no ulcers , normal skin turgor , no cyanotic . 8- neurologic : Cranial nerve II to XII intact , no focal neurological deffecit 9-psychatric : alert , oriented X 3 , appropriate affect , intact judgment and insight . 10-Lymphatic : no Lymphadenopathy. 11- musculoskeltal: normal gait t . Lumber spine moter stegnth lower extremities ,thigh and legs 5/5 Right side , 5/5 Left side deep tendon reflexes : normal Knee Jerk , normal ankle Jerk positive lumber facet Loading Test Range of motion of the lumbar spine Flexion 30 degrees, extension 10 degrees strait leg raising test , positive at 60 degree Fabere test positive RT and positive LT . Sever tenderness over the coccyx area Results Comments: Computed tomography scan of the lumbar spine done in September 2017= L3 4 L4 5 and L5-S1 lumbar bulging disc disease, and Tarlov cyst in the sacral area Assessment and Plan Plan: Assessment and plan=1-chronic pain syndrome . 2-lumbar radiculopathy. 3-coccyodynia 4-lumbar bulging disc disease. Patient currently ELIQUIS , secondary to risk of pulmonary embolism, and she is currently not a candidate to have any interventional pain management until she is able to hold the ELIQUIS for 48- hour , and there is no guarantee that the interventional pain management could help her low back pain, Patient overdosed risk score is 450, I have lengthy discussion with the patient about the risk of opioid overdose/sedation, and she understood the risk and she is willing to decrease the fentanyl patch, to 75 g with the next prescription, and after one month's it can be decreased to 50 g every 72 hours , and the third Valverde's will be decreased to 25 g every 72 hours, and later on to 12 g every 72 hours then it should be stopped , patient should continue on Percocet 10/325 every 6 hours . Risk and benefit of opioid use discussed with the patient, and patient planning and willing to decrease the fentanyl patch, patient would continue to get her prescription refilled from her primary care doctor Crista, and she will follow up with the pain clinic when necessary, thank you Dr. Beal for your referral Time with Patient: Greater than 30
== END ==
LOC: PNWHC3 12:44
PROVIDERS: ATTEND Specialist
DX: G89.4 Chronic pain syndrome (principal); M51.16 Intervertebral disc disorders with radiculopathy, lumbar region; M53.3 Sacrococcygeal disorders, not elsewhere classified; J45.909 Unspecified asthma, uncomplicated; Z79.899 Other long term (current) drug therapy; Z79.891 Long term (current) use of opiate analgesic
CPT/HCPCS: 99211

== ENCOUNTER → 2017-12-12 | Outpatient (CLI) | payer BC ==
--- NOTE | 2017-12-12 10:01 | CT ---
EXAMINATION TYPE: CT chest w con DATE OF EXAM: 12/12/2017 COMPARISON: 10/20/2017 HISTORY: Pulmonary Embolism CT DLP: 130.10 mGycm Automated exposure control for dose reduction was used. CONTRAST: CT scan of the chest is performed with IV Contrast, patient injected with 100 ml mL of Isovue 300. FINDINGS: LUNGS: The lungs are grossly clear, there is no concerning parenchymal mass or nodule identified. T here is no pleural effusion or pneumothorax seen. The tracheobronchial tree is patent. Is a 2 mm nod ule superior segment right lower lobe axial image 31. Findings stable. MEDIASTINUM: There are no greater than 1 cm hilar or mediastinal lymph nodes. No pericardial effusi on is seen. OTHER: Hypodense appearing left renal masses are again noted. Vertebral body hemangioma is seen with no focal suspicious sclerotic lesions. Hypertrophic change is . IMPRESSION: 1. Standard CT technique was performed. CTA technique was not submitted. Central pulmonary arteries a re patent. No acute infiltrate, pleural effusion or pneumothorax.. 2. There are persistent hypodense appearing masses involving the left kidney which do not meet the cr iteria of a simple cyst. 3. Stable 2 mm nodule superior segment right lower lobe
== END | disposition home or self-care (01) ==
LOC: RADCTMAIN 09:09
PROVIDERS: ATTEND Internal Medicine Critical Care Medicine
DX: R91.1 Solitary pulmonary nodule (principal); R10.9 Unspecified abdominal pain
CPT/HCPCS: 71260; Q9967

== ENCOUNTER → 2017-12-15 | Outpatient (CLI) | payer BC ==
--- NOTE | 2017-12-15 11:05 | US ---
EXAMINATION TYPE: US venous doppler duplex UE LT DATE OF EXAM: 12/15/2017 COMPARISON: US CLINICAL HISTORY: I82.409Acute embolism and thrombosis of unspecified. Pt states localized swelling l eft arm at antecubital fossa, previous PE and SVT, currently on blood thinners SIDE PERFORMED: Left Grayscale, color doppler, spectral doppler imaging performed of the deep veins of the left upper extr emity. There is normal flow, compressibility and vascular waveforms. Left Arm: Negative for DVT, and SVT Results called to Danisha at 's office at time of exam IMPRESSION: No sonographic evidence of deep venous thrombosis or superficial venous thrombosis within the left upper extremity.
== END | disposition home or self-care (01) ==
LOC: RADUSWWP 10:29
PROVIDERS: ATTEND Internal Medicine Critical Care Medicine
DX: I82.409 Acute embolism and thrombosis of unspecified deep veins of unspecified lower extremity (principal)

== ENCOUNTER → 2018-04-27 | Outpatient (CLI) | payer BC ==
[2018-04-27 13:09] VITALS: BP 132/63; PULSE 76; RESP 16
--- NOTE | 2018-04-27 19:31 | P.PAINPG ---
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 2-HEENT : nech ; supple , no Lymphadenopathy , no Thyromegaly , :eyes , no icterus, no photophobia . ENT : , normal oropharynx , no Thrush 3- Respiratory : Chest clear to auscultations Bilaterally , no wheezing . 4- Cardiovascular : regular rate and rhythem , S1 , S2 , no S3 , no S4. 5- Gastrointestinal: abdomen soft no tenderness , no organomegally . 6- Genitourinary : Defferred . 7-Integumentary : No cellulitis , no ulcers , normal skin turgor , no cyanotic . 8- neurologic : Cranial nerve II to XII intact , no focal neurological deffecit 9-psychatric : alert , oriented X 3 , appropriate affect , intact judgment and insight . 10-Lymphatic : no Lymphadenopathy. 11- musculoskeltal: normal gait t . Lumber spine moter stegnth lower extremities ,thigh and legs 5/5 Right side , 5/5 Left side deep tendon reflexes : normal Knee Jerk , normal ankle Jerk positive lumber facet Loading Test Range of motion of the lumbar spine Flexion 30 degrees, extension 10 degrees strait leg raising test , positive at 60 degree Fabere test positive RT and positive LT . Sever tenderness over the coccyx area Results Comments: Computed tomography scan of the lumbar spine done in September 2017= L3 4 L4 5 and L5-S1 lumbar bulging disc disease, and Tarlov cyst in the sacral area Assessment and Plan Plan: Assessment and plan=1-chronic pain syndrome . 2-lumbar radiculopathy. 3-coccyodynia 4-lumbar bulging disc disease. Physical examination support that most of the pain is accompanied to coccyodynia, patient would be good candidate to have ganglion impar block under fluoroscopy guidance, procedure risks and benefits and alternatives discussed with the patient, and she agreed with the preceding Objective - Vital Signs Vital signs: Vital Signs Temp Pulse 76 04/27/18 12:56 Resp 16 04/27/18 12:56 BP 132/63 04/27/18 12:56 Pulse Ox 97 04/27/18 12:56 Intake & Output 04/27/18 04/27/18 04/28/18 06:59 18:59 06:59 Weight 63.503 kg PQRS Measure Charge Sheet Measure #130: Documentation of Current Meds in Medical Chart: Patient's medications documented in chart Measure #226: Tobacco Use: Screen & Cessation Intervention: Pt not a tobacco user Measure #111: Pneumonia Vaccination: Pneumococcal vaccine NOT administered or previously given Measure #47: Advance Care Plan: Advance care planning discussed & documented, pt chose/unable to give Measure #412: Opioid Treatment Agreement: No documentation of signed opioid treatment agreement Measure #408: Opioid Therapy Follow-up Evaluation: Patient had NO f/u eval minimum every 3 months during opioid therapy Measure #317: Preventitive Care & Scrn High Bld Press & F/U: Normal blood pressure, f/u not required Measure #128: Body Mass Index (BMI) Screening & Follow-up: BMI documented within normal parameters Measure #131: Pain Assessment & Follow-up: Pain positive & plan documented, Follow-up scheduled Measure #431: Unhealthy Alcohol Use Preventative Care & Scrn: Patient not identified as an unhealthy alcohol user PQRS Narrative: Smoking Status Never smoker Do You Want the Pneumonia No Vaccine AT THIS TIME? Blood Pressure 132/63 Pain Intensity [Sacrum] 6 Scale Used Numeric (1 - 10) Hx Alcohol Use (MH) No Home Medications: Ambulatory Orders Montelukast [Singulair] 10 mg PO HS 10/29/14 Simvastatin 20 mg PO HS 10/29/14 Budesonide/Formoterol Fumarate [Symbicort 160-4.5 Mcg Inhaler] 2 puff INHALATION RT-DAILY PRN 03/20/16 Esomeprazole Magnesium [NexIUM] 20 mg PO DAILY 08/09/16 Sertraline HCl [Zoloft] 50 mg PO DAILY 11/01/17 fentaNYL 50MCG/HR PATCH [Duragesic 50MCG/HR] 50 mcg TRANSDERM Q72H 04/27/18 oxyCODONE-APAP 7.5-325MG [Percocet 7.5-325 mg] 1 tab PO Q6HR PRN 04/27/18 Controlled Substance Measures - Controlled Substance Measures Is patient prescribed a controlled substance at discharge?: No When asked, does pt state using other controlled substances?: No If prescribed controlled substance>3 days was MAPS reviewed?: No If Rx opioid, was Start Talking consent form obtained?: No If opioid is for acute pain is fill amount 7 days or less?: No Was information provided regarding opioid addiction?: No
== END | disposition home or self-care (01) ==
LOC: PNWHC3 11:47
PROVIDERS: ATTEND Specialist
DX: G89.4 Chronic pain syndrome (principal); M54.5 Low back pain; M51.16 Intervertebral disc disorders with radiculopathy, lumbar region; M53.3 Sacrococcygeal disorders, not elsewhere classified; G96.19 Other disorders of meninges, not elsewhere classified; Z79.891 Long term (current) use of opiate analgesic
CPT/HCPCS: 99211

== ENCOUNTER → 2018-05-05 | Outpatient (CLI) | payer BC ==
[2018-05-05 13:09] LABS: Prothrombin Time 9.9 sec (9.0-12.0)
[2018-05-05 19:57] LABS: Cardiolipin Ab IgG Interp NEGATIVE (NEGATIVE); Cardiolipin Ab IgM Interp NEGATIVE (NEGATIVE); Cardiolipin IgA Antibody <0.5 U/mL; Cardiolipin IgM Antibody 0.4 U/mL
[2018-05-08 14:07] LABS: APTT 37 Sec(s) (<43); Dilute Russell Viper Venom 37 Sec(s) (<44)
[2018-05-09 12:01] LABS: Anti-Thrombin III Activity 126 % (79-109)
[2018-05-09 12:02] LABS: Protein C (Activity) 98 % (71-138)
[2018-05-09 12:14] LABS: Free Protein S Antigen 106 % (50 - 147)
== END | disposition home or self-care (01) ==
LOC: LABWHC1 11:24
PROVIDERS: ATTEND Internal Medicine Critical Care Medicine
DX: E55.9 Vitamin D deficiency, unspecified (principal); Z86.711 Personal history of pulmonary embolism
CPT/HCPCS: 36415; 81240; 81241; 81291; 82306; 82784; 82785; 85300; 85303; 85306; 85610; 85613; 85730; 86147

== ENCOUNTER → 2018-05-08 | Outpatient (CLI) | payer BC ==
--- NOTE | 2018-05-08 13:34 | CT ---
CT CHEST FOR PULMONARY EMBOLISM. EXAMINATION TYPE: CT angio chest DATE OF EXAM: 05/08/2018 INDICATION: Pulmonary embolism, Shortness of breath CT DLP: 190.3 mGycm, Automated exposure control for dose reduction was used. CONTRAST: Patient injected with 100 ml mL of Isovue 370. COMPARISON: 12/12/2017 TECHNIQUE: CT of the chest is performed on a spiral scan at 2 mm thick sections. Study is performed with intravenous contrast timed for evaluation for pulmonary embolism. This will limit additional po rtions of the evaluation. 3-D MIP images reconstructed by the technologist are reviewed on the compu ter in the coronal and sagittal planes. FINDINGS: No persistent filling defects are evident to suggest an acute pulmonary embolism. No mediastinal or hilar adenopathy enlarged by CT criteria is evident. The ascending aorta diameter at the level of the main pulmonary artery is 2.9 cm. The main pulmonary artery diameter at the bifur cation is 2.2 cm. Lung windows are clear. Limited CT section through the upper abdomen. There is a 1.9 cm hyperdense lesion extending from the superior lateral left kidney. Additional workup is recommended. Couple of punctate nonobstructing odette al stones are not excluded in the superior pole left kidney. IMPRESSIONS: 1. No acute pulmonary embolism. 2. Superior pole left renal mass. Additional workup is recommended. Neoplasm is not excluded.
== END | disposition home or self-care (01) ==
LOC: RADCTMAIN 12:34
PROVIDERS: ATTEND Internal Medicine Critical Care Medicine
DX: R06.02 Shortness of breath (principal)
CPT/HCPCS: 71275; Q9967

== ENCOUNTER 2018-08-16 08:02 | Day surgery (SDC) | payer BC ==
[2018-08-14 15:14] VITALS: BMI 25.7
[~2018-08-16 08:02] MED LIST changes: -LACTATED RINGERS 1,000 ML IV SCH; -LIDOCAINE 1% 20 ML VIAL (10MG/ML) FOR IV START INTRADERMA PRN; +SODIUM CHLORIDE 0.9% 500 ML 500 ML IV SCH
[2018-08-16 09:02] VITALS: RESP 16; TEMP 98.4
[2018-08-16] MEDS ORDERED: LACTATED RINGERS 1,000 ML IV ONE (09:11)
[2018-08-16] MEDS ORDERED: LIDOCAINE 1% 20 ML VIAL (10MG/ML) FOR IV START INTRADERMA ONE (09:12)
[2018-08-16] MEDS ORDERED: IV FLUID CONTINUATION 1,000 ML IV ONE (10:21)
[2018-08-16 10:45] VITALS: BP 105/68; PULSE 81
--- NOTE | 2018-08-16 10:53 | P.PCN ---
Date of Procedure: 08/16/18 Description of Procedure: Ganglion Impar Date of the procedure: PREOP DIAGNOSIS= 1. Coccydynia 2. Proctalgia POSTOP DIAGNOSIS=: 1. Coccydynia 2. Proctalgia PROCEDURE: Ganglion impar block under fluoroscopy guidance. SURGEON: Beltran Montesinos ANESTHESIA: Local with 1% lidocaine 3 ml ; IV sedation with Versed 4 mg and m fentanyl. EBL:None. PROCEDURE INDICATION: The patient with chronic proctitis non responsive to more conservative measures. PROCEDURE DESCRIPTION: The patient was seen and identified in the preoperative area. Risks, benefits, complications, and alternatives were discussed with the patient. The patient agreed to proceed with the procedure and signed the consent. IV was started, and vital signs were stable. Patient was taken to the OR and time out was completed. The patient was placed in the prone position on procedure table and a pillow was placed under the abdomen to reduce lumbar lordosis.The lumbosacral area was prepped and draped in the usual sterile fashion. Critical pause was taken. Vital signs were closely monitored during the procedure. Using crosstable lateral view, the sacrococcygeal joint was identified and localized with 1% lidocaine. A 25-guage 3-1/2 inch needle was inserted through the sacrococcygeal ligament and advanced to the anterior aspect of the joint guided by myrtle-posterior and lateral fluoroscopy. Correct needle position was verified by injecting 2 ml of water soluble dye, Omnipaque 300, and observing a spread along the anterior side of the sacro-coccygeal ligament. After negative aspiration of CSF, blood, and no paresthesias, 5 mL of block solution containing 4mL of 0.25%preservative-free ropivacaine and X methadone 10 mg 4/1 mL was injected. Needle was withdrawn intact. Skin was cleansed and bandages were applied COMPLICATIONS: None DISPOSITION / PLANS: The patient was placed in a supine position and transferred to the recovery area in a stable condition for observation. Patient was discharged from the recovery room after meeting discharge criteria. Discharge instructions given to the patient by the staff. The patient was reexamined prior to discharge. The patient will schedule a follow up in the clinic in 2-4 weeks.
--- NOTE | 2018-08-16 13:40 | FL ---
Fluoroscopy HISTORY: Pain 20 seconds fluoroscopy time supplied to the referring clinician. 2 intraoperative C-arm images docum ent the procedure. See dictated report from anesthesia.
--- NOTE | 2018-09-11 18:58 | P.GSHP ---
History of Present Illness H&P Date: 08/16/18 Date of service was generated 2018 48-year-old female who presents with a history of rectal pain. VAS is a 6 out of 10 in severity, she describes pain with sitting, as well as burning tingling sensation in the per rectal area. Physical Exam : CVS: Regular rate and rhythm, no peripheral edema Pulmonary: Nonlabored, no wheezing Plan: [place] impar block, diagnostic today. If she has good relief we'll repeat diagnostic test and possibly do a neurolysis. Past Medical History Past Medical History: Asthma, GERD/Reflux, Hyperlipidemia, Pulmonary Embolus (PE ) Additional Past Medical History / Comment(s): OTHER HX; TARLOV CYSTS ON SPINE WITH LOW BACK PAIN/PELVIC PAIN, BENIGN LESIONS ON KIDNEYS, SEASONAL ALLERGIES. FACTOR 5 History of Any Multi-Drug Resistant Organisms: None Reported Past Surgical History: Back Surgery, Orthopedic Surgery Additional Past Surgical History / Comment(s): HYSTEROSCOPY/MYOMECTOMY- REMOVAL UTERINE FIBROIDS, TARLOV CYSTS ON SPINE DRAINED AND FILLED WITH BODY FAT 2006), EGD/COLONOSCOPY, BILATERAL LASER SURGERY FOR VISION CORRECTION, SPINAL SPINAL CORD STIMULATOR INSERTION/REMOVAL. Past Anesthesia/Blood Transfusion Reactions: Motion Sickness, Postoperative Nausea & Vomiting (PONV) Smoking Status: Never smoker - Past Family History Sister(s) Family Medical History: Cancer Additional Family Medical History / Comment(s): THYROID CANCER Mother Family Medical History: Cancer Additional Family Medical History / Comment(s): PANCREATIC CANCER Father Family Medical History: Cancer, Hyperlipidemia Additional Family Medical History / Comment(s): LUNG CANCER Medications and Allergies Home Medications Medication Instructions Recorded Confirmed Type Montelukast [Singulair] 10 mg PO HS 10/29/14 08/14/18 History Simvastatin 20 mg PO HS 10/29/14 08/14/18 History Budesonide/Formoterol Fumarate 2 puff INHALATION RT-DAILY PRN 03/20/16 08/14/18 History [Symbicort 160-4.5 Mcg Inhaler] Esomeprazole Magnesium [NexIUM] 20 mg PO DAILY 08/09/16 08/14/18 History Sertraline HCl [Zoloft] 50 mg PO DAILY 11/01/17 08/14/18 History fentaNYL 50MCG/HR PATCH [Duragesic 37 mcg TRANSDERM Q72H 04/27/18 08/14/18 History 50MCG/HR] oxyCODONE-APAP 7.5-325MG [Percocet 1 tab PO Q6HR PRN 04/27/18 08/14/18 History 7.5-325 mg] Apixaban [Eliquis] 5 mg PO BID 06/19/18 08/14/18 History Fluticasone Nasal [place] [Flonase 2 spr EA NOSTRIL DAILY 08/14/18 08/14/18 History Nasal [place]] Allergies Allergy/AdvReac Type Severity Reaction Status Date / Time No Known Allergies Allergy Verified 08/16/18 08:46 Surgical - Exam Vital Signs Temp Pulse Resp BP Pulse Ox 98.4 F 83 16 132/77 100 08/16/18 09:01 08/16/18 09:01 08/16/18 09:01 08/16/18 09:01 08/16/18 09:01
== END 2018-08-16 11:00 | disposition home or self-care (01) ==
LOC: ORPAIN 08:02
PROVIDERS: ATTEND Anesthesiology
DX: M53.3 Sacrococcygeal disorders, not elsewhere classified (principal); K62.89 Other specified diseases of anus and rectum; Z79.01 Long term (current) use of anticoagulants; J45.909 Unspecified asthma, uncomplicated; K21.9 Gastro-esophageal reflux disease without esophagitis; E78.5 Hyperlipidemia, unspecified; D68.51 Activated protein C resistance; Z79.899 Other long term (current) drug therapy; Z86.711 Personal history of pulmonary embolism
CPT/HCPCS: 81025; 64999; J2250; J1100; J3301; J3010; Q9966; 64450

== ENCOUNTER → 2018-09-14 | Outpatient (CLI) | payer BC ==
[2018-09-14 13:06] VITALS: BP 124/86; PULSE 56; RESP 16
--- NOTE | 2018-09-14 13:33 | P.PN ---
Subjective Progress Note Date: 09/14/18 This is a 48-year-old lady with history of coccygodynia status post Tarlov cyst removal surgically. The patient's pain gets worse when she sits for too long. She had ganglion impar block recently which gave her-2 days of pain relief however her pain became worse after that for about one week and then it came down to its baseline. Her lumbar paravertebral pain improved after the ganglion impar. Her pain gets worse also by bowel movements. The patient describes her pain as throbbing in quality. The patient is getting [place] from Dr. Urbano and she takes about 6 pills of it every day. 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 She denies using tobacco. Today, pt denies new-onset weakness, bowel/bladder incontinence, or any other signs or symptoms of cauda equina syndrome. There are no signs of acute intoxication, and no indications of medication diversion or overuse. In addition to above, 13-point review of systems is also negative for chest pain , shortness of breath, changes in vision, changes in hearing, new onset weakness , abdominal pain, diarrhea, extreme fatigue, malaise, fever, skin changes, homicidal or suicidal ideation, or bowel or bladder incontinence. Vital Signs: Reviewed in EMR Gen: AAOx3, NAD HEENT: PERRLA,hearing grossly normal Pulm: resp unlabored,CTA Heart:S1,S2, No Mur Neck: supple, trachea midline Neuro exam of the lower extremities: Normal muscle strength in the lower extremities Straight leg raising test: Dylan's test: Range of motion of the lumbar spine: Facet loading test: Tenderness in the paravertebral musculature: Positive tenderness around the tip of the coccyx Neuro: CN II-XII grossly intact, Imaging: Reviewed in EMR/chart Assessment: Lumbar postlaminectomy pain syndrome Coccygodynia Plan: 1. Explanation: Opioid and psychological risk scores were reviewed. Diagnoses , prognoses, and multiple treatment options including but not limited to physical therapy, interventional therapies, adjuvant medical therapies, narcotic medication therapies, and surgery were discussed with the patient and all questions were answered to the patient's satisfaction. 2. Opioid agreement: Opioid are not prescribed by our clinic 3. Counseling: The patient was counseled extensively on SMOKING CESSATION, BODY MASS INDEX, EXERCISE. Specifically, the patient was instructed regarding the importance of smoking cessation, obesity, and exercise in the context of both chronic pain and overall health. 4. Procedures: None at this point 5. Consultations: None 6. Investigations: None 7. Medications: Start Neurontin 100 mg to 200 mg a day 8. Disposition: Return to clinic in 4 weeks 9. Maps were reviewed and were appropriate. PQRS measures: 1-Patient's medications are documented in the chart. 2-Tobacco use is negative, counseling given 3-Patient has not had a pneumococcal vaccine. 4-Advanced care planning discussed, patient unable to give 5-Opioid contract signed with the patient. 6-Pain positive, follow-up visit or procedure scheduled 7-Patient's blood pressure measured and documented within normal limits. 8-Patient's weight was measured, and body mass index ABOVE the normal limits, and counseling was done. Patient instructed to follow up with PCP. 9-Patient WAS NOT identified as an unhealthy alcohol user. Objective - Vital Signs Vital signs: Vital Signs Temp Pulse 56 L 09/14/18 12:56 Resp 16 09/14/18 12:56 BP 124/86 09/14/18 12:56 Pulse Ox Intake & Output 09/13/18 09/14/18 09/14/18 18:59 06:59 18:59 Weight 65.771 kg
== END ==
LOC: PNWHC3 12:42
PROVIDERS: ATTEND Anesthesiology
DX: M96.1 Postlaminectomy syndrome, not elsewhere classified (principal); M53.3 Sacrococcygeal disorders, not elsewhere classified; Z79.899 Other long term (current) drug therapy
CPT/HCPCS: 99211

== ENCOUNTER → 2018-10-26 | Outpatient (CLI) | payer BC ==
[2018-10-26 12:47] VITALS: RESP 16
[2018-10-26 12:49] VITALS: BP 137/90; PULSE 79
--- NOTE | 2018-10-26 13:01 | P.PN ---
Subjective Progress Note Date: 10/26/18 Progress Note - SOAP Subjective Progress Note Date: 09/14/18 This is a 48-year-old lady with history of coccygodynia status post Tarlov cyst removal surgically. The patient's pain gets worse when she sits for too long. She had ganglion impar block recently which gave her-2 days of pain relief however her pain became worse after that for about one week and then it came down to its baseline. Her lumbar paravertebral pain improved after the ganglion impar. Her pain gets worse also by bowel movements. The patient describes her pain as throbbing in quality. The patient is getting [place] from Dr. Urbano and she takes about 6 pills of it every day. 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 The patient has been driving for long distances lately with increasing pain on the left side of her coccyx. She gets her pain prescriptions from Dr. Beasley and she uses Percocet 4-6 times a day and fentanyl patch 37.5 mics/Hr q 72 hours. Today, pt denies new-onset weakness, bowel/bladder incontinence, or any other signs or symptoms of cauda equina syndrome. There are no signs of acute intoxication, and no indications of medication diversion or overuse. In addition to above, 13-point review of systems is also negative for chest pain, shortness of breath, changes in vision, changes in hearing, new onset weakness, abdominal pain, diarrhea, extreme fatigue, malaise, fever, skin changes, homicidal or suicidal ideation, or bowel or bladder incontinence. Vital Signs: Reviewed in EMR Gen: AAOx3, NAD HEENT: PERRLA,hearing grossly normal Pulm: resp unlabored,CTA Neck: supple, trachea midline Neuro exam of the lower extremities: Normal muscle strength in the lower extremities Straight leg raising test: Dylan's test: Range of motion of the lumbar spine: Facet loading test: Tenderness in the paravertebral musculature: Positive tenderness around the tip of the coccyx Neuro: CN II-XII grossly intact, Imaging: Reviewed in EMR/chart Assessment: Coccygodynia status post Tarlov cyst removal Scoliosis Plan: 1. Explanation: Opioid and psychological risk scores were reviewed. Diagnoses, prognoses, and multiple treatment options including but not limited to physical therapy, interventional therapies, adjuvant medical therapies, narcotic medication therapies, and surgery were discussed with the patient and all questions were answered to the patient's satisfaction. 2. Opioid agreement: Opioids are not prescribed by our clinic 3. Counseling: The patient was counseled extensively on SMOKING CESSATION, BODY MASS INDEX, EXERCISE. Specifically, the patient was instructed regarding the importance of smoking cessation, obesity, and exercise in the context of both chronic pain and overall health. 4. Procedures: None at this point 5. Consultations: None 6. Investigations: None 7. Medications: Increase Neurontin to 300 mg once a day and then twice a day 8. Disposition: Return to clinic in 4 weeks 9. Maps were reviewed and were appropriate. PQRS measures: 1-Patient's medications are documented in the chart. 2-Tobacco use is positive, counseling given 3-Patient has not had a pneumococcal vaccine. 4-Advanced care planning discussed, patient unable to give 5-Opioid contract signed with the patient. 6-Pain positive, follow-up visit or procedure scheduled 7-Patient's blood pressure measured and documented within normal limits. 8-Patient's weight was measured, and body mass index ABOVE the normal limits, and counseling was done. Patient instructed to follow up with PCP. 9-Patient WAS NOT identified as an unhealthy alcohol user. Objective - Vital Signs Vital signs: Vital Signs Temp Pulse 79 10/26/18 12:41 Resp 16 10/26/18 12:41 BP 137/90 10/26/18 12:41 Pulse Ox Intake & Output 10/25/18 10/26/18 10/26/18 18:59 06:59 18:59 Weight 65.771 kg
== END | disposition home or self-care (01) ==
LOC: PNWHC3 12:27
PROVIDERS: ATTEND Anesthesiology
DX: M53.3 Sacrococcygeal disorders, not elsewhere classified (principal); M41.9 Scoliosis, unspecified; Z98.890 Other specified postprocedural states; Z79.891 Long term (current) use of opiate analgesic; Z79.899 Other long term (current) drug therapy; Z72.0 Tobacco use; Z71.6 Tobacco abuse counseling
CPT/HCPCS: 99211

== ENCOUNTER → 2018-11-23 | Outpatient (CLI) | payer BC ==
[2018-11-23 14:07] VITALS: BP 147/84; PULSE 69; RESP 16
--- NOTE | 2018-11-23 14:38 | P.PAINPG ---
Subjective Progress Note Date: 11/23/18 This is 48 years old female, with a chronic history of severe low back pain, she is diagnosed with lumbar degenerative disc disease, and also patient had Talov cysts at the sacral spine, she continued to have coccydynia, and low back pain with radiation to the lower extremities, patient denies any motor or sensory deficit, she denies any fever or night sweats, and there is no change in the bowel movement or urination, she is currently on fentanyl patch 37 g every 72 hours ( 25 + 12 ) , and she is on Percocet 7.5/325 every 6 hours, Neurontin 300 mg twice a day , she denies any side effect of the medication, she denies any excessive drowsiness or sleepiness, patient had ganglion impar block done a few months ago, and she reported that it helped her low back pain to some degree Physical Examinations : -Constitutional : Cooperative , not in acute distress . -HEENT : nech ; supple , no Lymphadenopathy , no Thyromegaly , :eyes , no icterus, no photophobia . -Integumentary : No cellulitis , no ulcers , normal skin turgor , no cyanotic . - neurologic : Cranial nerve II to XII intact , no focal neurological deffecit -psychatric : alert , oriented X 3 , appropriate affect , intact judgment and insight . -Lymphatic : no Lymphadenopathy. - musculoskeltal: normal gait . Lumber spine moter stegnth lower extremities ,thigh and legs 5/5 Right side , 5/5 Left side tenderness over the coccyx area Results: Computed tomography scan of the lumbar spine done in September 2017= L3 4 L4 5 and L5-S1 lumbar bulging disc disease, and Tarlov cyst in the sacral area Assessment and Plan Plan: Assessment and plan=1-chronic pain syndrome . 2-lumbar radiculopathy. 3-coccyodynia 4-lumbar bulging disc disease. Physical examination support that most of the pain is accompanied to coccyodynia, patient would be good candidate to have ganglion impar block under fluoroscopy guidance, patient has to hold the blood thinner for 3 days before the procedure procedure risks and benefits and alternatives discussed with the patient, and she agreed with the preceding , patient currently getting prescription refill of the medication from Dr MARQUEZ , and she will follow up with him to get medication refill Objective - Vital Signs Vital signs: Vital Signs Temp Pulse 69 11/23/18 14:02 Resp 16 11/23/18 14:02 BP 147/84 11/23/18 14:02 Pulse Ox 100 11/23/18 14:02 Intake & Output 11/22/18 11/23/18 11/23/18 18:59 06:59 18:59 Weight 65.771 kg PQRS Measure Charge Sheet Measure #130: Documentation of Current Meds in Medical Chart: Patient's medications documented in chart Measure #226: Tobacco Use: Screen & Cessation Intervention: Pt not a tobacco user Measure #111: Pneumonia Vaccination: Pneumococcal vaccine NOT administered or previously given Measure #47: Advance Care Plan: Advance care planning discussed & documented, pt chose/unable to give Measure #412: Opioid Treatment Agreement: No documentation of signed opioid treatment agreement Measure #408: Opioid Therapy Follow-up Evaluation: Patient had NO f/u eval minimum every 3 months during opioid therapy Measure #317: Preventitive Care & Scrn High Bld Press & F/U: Pre-hypertensive or hypertensive BP documented, pt will f/u with PCP Measure #128: Body Mass Index (BMI) Screening & Follow-up: BMI documented ABOVE normal parameters - f/u documented Measure #131: Pain Assessment & Follow-up: Pain positive & plan documented Measure #431: Unhealthy Alcohol Use Preventative Care & Scrn: Patient not identified as an unhealthy alcohol user PQRS Narrative: Smoking Status Never smoker Do You Want the Pneumonia No Vaccine AT THIS TIME? Blood Pressure 147/84 Pain Intensity [Bilateral 5 Lower Back] Scale Used Numeric (1 - 10) Hx Alcohol Use (MH) No Home Medications: Ambulatory Orders Montelukast [Singulair] 10 mg PO HS 10/29/14 Simvastatin 20 mg PO HS 10/29/14 Budesonide/Formoterol Fumarate [Symbicort 160-4.5 Mcg Inhaler] 2 puff INHALATION RT-DAILY PRN 03/20/16 Esomeprazole Magnesium [NexIUM] 20 mg PO DAILY 08/09/16 Sertraline HCl [Zoloft] 50 mg PO DAILY 11/01/17 fentaNYL 50MCG/HR PATCH [Duragesic 50MCG/HR] 37 mcg TRANSDERM Q72H 04/27/18 oxyCODONE-APAP 7.5-325MG [Percocet 7.5-325 mg] 1 tab PO Q6HR PRN 04/27/18 Apixaban [Eliquis] 2.5 mg PO BID 06/19/18 Fluticasone Nasal [place] [Flonase Nasal [place]] 2 spr EA NOSTRIL DAILY 08/14/18 Gabapentin [Neurontin] 1 tab PO BID 11/23/18 Controlled Substance Measures - Controlled Substance Measures Is patient prescribed a controlled substance at discharge?: No
== END | disposition home or self-care (01) ==
LOC: PNWHC3 13:06
PROVIDERS: ATTEND Specialist
DX: G89.4 Chronic pain syndrome (principal); M51.16 Intervertebral disc disorders with radiculopathy, lumbar region; M53.3 Sacrococcygeal disorders, not elsewhere classified; Z79.891 Long term (current) use of opiate analgesic; Z79.899 Other long term (current) drug therapy
CPT/HCPCS: 99211

== ENCOUNTER 2019-04-08 14:14 | Emergency (ER) | payer BC ==
[2019-04-08 14:19] VITALS: RESP 18; TEMP 98.4
[2019-04-08] MEDS ORDERED: SODIUM CHLORIDE 0.9% 1,000 ML IV STA ×2 (14:37)
[2019-04-08] MEDS ORDERED: methylPREDNISolone SOD SUCCI 125 MG/2 ML VIAL IV STA (14:38)
[2019-04-08] MEDS ORDERED: IPRATROPIUM-ALBUTEROL 3 ML NEB INHALATION STA (14:38)
--- NOTE | 2019-04-08 14:43 | ED ---
Chest Pain HPI - General Chief Complaint: Chest Pain Stated Complaint: Chest discomfort Time Seen by Provider: 04/08/19 14:22 Source: patient, RN notes reviewed, old records reviewed Mode of arrival: wheelchair - History of Present Illness Initial Comments: Patient is a 48-year-old female who presents emergency department today for evaluation for chest discomfort. Patient reports that approximately one week ago she started feeling that she is having an asthma exacerbation. She had increased using her steroid inhaler and Flonase. Patient reports that [facility] she had a severe coughing fit. She reports that since that time she's been having some pleuritic-type of chest pain. She also complains of some posterior shoulder and rib pain. Patient states that she has had a history of pulmonary embolisms, history of blood disorder. She reports she does have a positive d-dimer. She did have a history of PE but then was told that that was not accurate by second opinion at [place], she was stopped off blood thinners approximately 6 months ago. Patient also reports she's been complaining of some minor sinus congestion, which she's been taking Sudafed with some relief. She denies any travel history. She denies leg swelling. Patient denies any recent fever, chills, abdominal pain, nausea vomiting, numbness or tingling, dysuria or hematuria, constipation or diarrhea, headaches or visual changes, or any other current symptoms - Related Data Home Medications Medication Instructions Recorded Confirmed Montelukast [Singulair] 10 mg PO HS 10/29/14 04/08/19 Simvastatin 20 mg PO HS 10/29/14 04/08/19 Budesonide/Formoterol Fumarate 2 puff INHALATION RT-DAILY PRN 03/20/16 04/08/19 [Symbicort 160-4.5 Mcg Inhaler] oxyCODONE-APAP 7.5-325MG [Percocet 1 tab PO Q6HR PRN 04/27/18 04/08/19 7.5-325 mg] Fluticasone Nasal [place] [Flonase 2 spr EA NOSTRIL DAILY 08/14/18 04/08/19 Nasal [place]] Albuterol Nebulized [Ventolin 2.5 mg INHALATION RT-Q4H PRN 04/08/19 04/08/19 Nebulized] Fexofenadine HCl [Yumiko Allergy] 180 mg PO DAILY 04/08/19 04/08/19 Gabapentin [Neurontin] 400 mg PO BID 04/08/19 04/08/19 fentaNYL 12MCG/HR PATCH [Duragesic 1 patch TRANSDERM Q72H 04/08/19 04/08/19 12MCG/HR] Previous Rx's Medication Instructions Recorded predniSONE 10 mg PO DAILY #15 tab 04/08/19 Allergies Allergy/AdvReac Type Severity Reaction Status Date / Time No Known Allergies Allergy Verified 04/08/19 14:28 Review of Systems ROS Statement: Those systems with pertinent positive or pertinent negative responses have been documented in the HPI. ROS Other: All systems not noted in ROS Statement are negative. EKG Findings - EKG Comments: EKG Findings:: EKG shows sinus rhythm normal EKG. Ventricular rate of 76 bpm. VT interval is 134 ms. QS duration is 80 ms. QT QTc is 380/427 ms. Past Medical History Past Medical History: Asthma, GERD/Reflux, Hyperlipidemia, Pulmonary Embolus (PE) Additional Past Medical History / Comment(s): OTHER HX; TARLOV CYSTS ON SPINE WITH LOW BACK PAIN/PELVIC PAIN, BENIGN LESIONS ON KIDNEYS, SEASONAL ALLERGIES. FACTOR 5. Pt. 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 Past Anesthesia/Blood Transfusion Reactions: Motion Sickness, Postoperative Nausea & Vomiting (PONV) Past Psychological History: Anxiety Smoking Status: Never smoker Past Alcohol Use History: None Reported Past Drug Use History: None Reported - Past Family History Sister(s) Family Medical History: Cancer Additional Family Medical History / Comment(s): THYROID CANCER Mother Family Medical History: Cancer Additional Family Medical History / Comment(s): PANCREATIC CANCER Father Family Medical History: Cancer, Hyperlipidemia Additional Family Medical History / Comment(s): LUNG CANCER General Exam - General Exam Comments Initial Comments: Patient is a pleasant 48-year-old female. No significant distress. General appearance: alert, in no apparent distress Head exam: Present: atraumatic, normocephalic, normal inspection Eye exam: Present: normal appearance, PERRL, EOMI. Absent: scleral icterus, conjunctival injection, periorbital swelling ENT exam: Present: normal exam, mucous membranes moist Neck exam: Present: normal inspection. Absent: tenderness, meningismus, lymphadenopathy Respiratory exam: Present: normal lung sounds bilaterally, other (chest wall discomfort Left side). Absent: respiratory distress, wheezes, rales, rhonchi, stridor Cardiovascular Exam: Present: regular rate GI/Abdominal exam: Present: soft, normal bowel sounds. Absent: distended, tenderness, guarding, rebound, rigid Extremities exam: Present: normal inspection, full ROM, normal capillary refill. Absent: tenderness, pedal edema, joint swelling, calf tenderness Back exam: Present: normal inspection Neurological exam: Present: alert, oriented X3, CN II-XII intact Psychiatric exam: Present: normal affect, normal mood Skin exam: Present: warm, dry, intact, normal color. Absent: rash Course Vital Signs 04/08/19 04/08/19 04/08/19 14:15 14:55 15:31 Temperature 98.4 F Pulse Rate 99 81 Respiratory 18 18 Rate Blood Pressure 147/80 O2 Sat by Pulse 100 Oximetry 04/08/19 04/08/19 04/08/19 15:41 17:24 18:04 Temperature 98.4 F Pulse Rate 79 85 85 Respiratory 18 18 Rate Blood Pressure 123/64 112/73 O2 Sat by Pulse 100 100 Oximetry - Reevaluation(s) Reevaluation #1: 04/08/19 16:16 Delay in lab resulting due to equipment malfunction according to lab. Chest Pain MDM - MDM 4-year-old male presents today with 1 week of chest pain. She states that she is concerned with history of blood disorder may be possibility of a PE. Patient had blood work obtained troponin and EKG are unremarkable. She doesn't have a mildly elevated d-dimer. CT is negative anterior chest negative exam. No nodes a PE. Stable left renal lesions are probably calcifying containing cyst. No change. Patient's pain seems to be pleuritic, discussed possibly pleurisy and costochondritis. Discussed the Patient follow-up with PCP. All questions answered return parameters were discussed. We'll discharge the Patient with steroids. Disposition Clinical Impression: Pleurisy Disposition: HOME SELF-CARE Condition: Good Instructions (If sedation given, give patient instructions): Costochondritis (ED) Additional Instructions: Patient advised to follow-up with your primary care physician. She uses steroids and take her at home pain medicine. Prescriptions: predniSONE 10 mg PO DAILY #15 tab Is patient prescribed a controlled substance at d/c from ED?: No Referrals: Juan J Tobin DO [Primary Care Provider] - 1-2 days Time of Disposition: 17:41
[2019-04-08 15:29] LABS: Anisocytosis Slight; Basophils # (A) 0.1 k/uL (0-0.2); Basophils % (A) 1 %; Eosinophils # (A) 0.1 k/uL (0-0.7); Eosinophils % (A) 1 %; HCT 33.8 % (34.0-46.0); HGB 10.7 gm/dL (11.4-16.0); Lymphocytes # (A) 2.4 k/uL (1.0-4.8); Lymphocytes % (A) 30 %; MCH 23.7 pg (25.0-35.0); MCHC 31.7 g/dL (31.0-37.0); MCV 74.7 fL (80.0-100.0); Mean Platelet Volume 7.8; Microcytosis Moderate; Monocytes # (A) 0.4 k/uL (0-1.0); Monocytes % (A) 5 %; Neutrophils # (A) 4.9 k/uL (1.3-7.7); Neutrophils % (A) 61 %; Platelet Count 359 k/uL (150-450); RBC 4.53 m/uL (3.80-5.40); RDW 17.9 % (11.5-15.5)
[2019-04-08 15:46] LABS: ALT 20 U/L (9-52); AST 24 U/L (14-36); African American GFR (CKD) >90 (>60 ml/min/1.73 sqM); Albumin 4.7 g/dL (3.5-5.0); Alkaline Phosphatase 56 U/L (38-126); Anion Gap 13 mmol/L; Blood Urea Nitrogen 20 mg/dL (7-17); Calcium 9.4 mg/dL (8.4-10.2); Carbon Dioxide 24 mmol/L (22-30); Chloride 102 mmol/L (98-107); Glucose 93 mg/dL (74-99); Magnesium 1.9 mg/dL (1.6-2.3); Potassium 3.8 mmol/L (3.5-5.1); Sodium 139 mmol/L (137-145); Total Bilirubin 0.4 mg/dL (0.2-1.3); Total Protein 7.5 g/dL (6.3-8.2)
--- NOTE | 2019-04-08 15:50 | XR ---
EXAMINATION TYPE: XR chest 2V DATE OF EXAM: 04/08/2019 COMPARISON: 11/29/2017 HISTORY: Chest pain TECHNIQUE: Frontal and lateral views of the chest are obtained. FINDINGS: Heart and mediastinum are normal. Lungs are clear. Diaphragm is normal. Bony thorax appear s normal. IMPRESSION: Normal chest. No change.
[2019-04-08 16:46] LABS: INR 0.9 (<1.2); Partial Thromboplastin Time 23.6 sec (22.0-30.0); Prothrombin Time 9.8 sec (9.0-12.0)
[2019-04-08 16:47] LABS: D-Dimer 0.62 mg/L FEU (<0.60)
--- NOTE | 2019-04-08 17:15 | CT ---
EXAMINATION TYPE: CT chest angio for PE DATE OF EXAM: 04/08/2019 COMPARISON: 05/08/2018 HISTORY: Chest and back pain. CT DLP: 220.9 mGycm Automated exposure control for dose reduction was used. CONTRAST: CT Chest for pulmonary embolism performed with with IV Contrast, patient injected with 100 mL of Isov ue 370. There are 3-D post processed images. FINDINGS: The lungs are clear of infiltrate. There is no pleural effusion. Heart size is normal. There is no me diastinal adenopathy. There are no hilar masses. Heart size is normal. There is no pericardial effusi on. Thoracic aorta is intact. There is no aneurysm or dissection. There is normal contrast opacification of the pulmonary arteries. There are no filling defects. There is 1.8 cm rounded high density mass up per pole left kidney that is probably a cyst that contains calcium. There is a second similar lesion measuring 1 cm. These appear unchanged compared to old exam. Bony thorax is intact. IMPRESSION: Negative exam. No evidence of pulmonary embolism. Stable left renal lesions are probably calcium cont aining cysts. No change compared to old exam.
[2019-04-08 17:24] VITALS: PULSE 85
[2019-04-08 18:06] VITALS: BP 112/73
== END 2019-04-08 18:04 | disposition home or self-care (01) ==
LOC: EC 14:14
DX: R09.1 Pleurisy (principal); J45.909 Unspecified asthma, uncomplicated; E78.5 Hyperlipidemia, unspecified; Z79.899 Other long term (current) drug therapy; Z86.711 Personal history of pulmonary embolism
CPT/HCPCS: 36415; 94640; 93005; 85379; 80053; 83735; 84484; 85025; 85610; 85730; 71046; 71275; 99285; 96374; 96361 ×3; J2930; Q9967

== ENCOUNTER 2019-08-10 08:16 | Emergency (ER) | payer BC ==
[2019-08-10 08:55] LABS: Basophils # (A) 0.1 k/uL (0-0.2); Basophils % (A) 0 %; Eosinophils # (A) 0.2 k/uL (0-0.7); Eosinophils % (A) 1 %; HCT 38.5 % (34.0-46.0); HGB 12.2 gm/dL (11.4-16.0); Lymphocytes # (A) 4.6 k/uL (1.0-4.8); Lymphocytes % (A) 38 %; MCH 25.4 pg (25.0-35.0); MCHC 31.7 g/dL (31.0-37.0); MCV 80.2 fL (80.0-100.0); Mean Platelet Volume 7.8; Monocytes # (A) 0.7 k/uL (0-1.0); Monocytes % (A) 5 %; Neutrophils # (A) 6.5 k/uL (1.3-7.7); Neutrophils % (A) 53 %; Platelet Count 361 k/uL (150-450); RDW 15.6 % (11.5-15.5); WBC 12.3 k/uL (3.8-10.6)
[2019-08-10] MEDS ORDERED: KETOROLAC 30 MG/ML 1 ML VIAL IVP STA (09:01)
[2019-08-10 09:04] LABS: ALT 13 U/L (4-34); AST 19 U/L (14-36); African American GFR (CKD) >90 (>60 ml/min/1.73 sqM); Albumin 4.5 g/dL (3.5-5.0); Alkaline Phosphatase 56 U/L (38-126); Anion Gap 10 mmol/L; Blood Urea Nitrogen 20 mg/dL (7-17); Calcium 9.6 mg/dL (8.4-10.2); Carbon Dioxide 28 mmol/L (22-30); Chloride 103 mmol/L (98-107); Glucose 88 mg/dL (74-99); Magnesium 2.2 mg/dL (1.6-2.3); Non-African American GFR(CKD) >90 (>60 ml/min/1.73 sqM); Potassium 3.6 mmol/L (3.5-5.1); Sodium 141 mmol/L (137-145); Total Bilirubin 0.5 mg/dL (0.2-1.3); Total Protein 7.3 g/dL (6.3-8.2)
--- NOTE | 2019-08-10 09:22 | XR ---
EXAMINATION TYPE: XR chest 2V DATE OF EXAM: 08/10/2019 COMPARISON: 04/08/2019 TECHNIQUE: PA and lateral views submitted. HISTORY: Chest pain FINDINGS: The lungs are clear and there is no pneumothorax, pleural effusion, or focal pneumonia. No overt fa ilure. Heart size normal. Hypertrophic and degenerative change of the spine. Hyperinflation of the magalis ngs. IMPRESSION: 1. No acute process.
[2019-08-10 09:32] LABS: D-Dimer 0.59 mg/L FEU (<0.60); INR 0.9 (<1.2); Prothrombin Time 9.7 sec (9.0-12.0)
[2019-08-10 09:42] LABS: Partial Thromboplastin Time 21.7 sec (22.0-30.0)
--- NOTE | 2019-08-10 10:48 | CT ---
CT CHEST FOR PULMONARY EMBOLISM. EXAMINATION TYPE: CT chest angio for PE DATE OF EXAM: 08/10/2019 INDICATION: pleuritic cp, factor v, hx pe CT DLP: 273 mGycm, Automated exposure control for dose reduction was used. CONTRAST: Patient injected with 100 mL of Isovue 370. COMPARISON: 04/08/2019 CT TECHNIQUE: CT of the chest is performed on a spiral scan at 2 mm thick sections. Study is performed with intravenous contrast timed for evaluation for pulmonary embolism. This will limit additional po rtions of the evaluation. 3-D MIP images reconstructed by the technologist are reviewed on the compu ter in the coronal and sagittal planes. FINDINGS: No persistent filling defects are evident to suggest an acute pulmonary embolism. No mediastinal or hilar adenopathy enlarged by CT criteria is evident. The ascending aorta diameter at the level of the main pulmonary artery is 3.2 cm. The main pulmonary artery diameter at the bifur cation is 2.5 cm. Lung windows are clear. Limited CT section through the upper abdomen. There is some lobular density isodense with the cortex measuring approximately 1.7 x 1.1 cm. Underlying mass is not excluded. There is an additional rounded isodense density at the inferior lateral pole measuring 2.0 cm. These areas were present on the comp arison study and appears stable. IMPRESSIONS: 1. No acute pulmonary embolism. 2. Stable appearing nodules on the left kidney
--- NOTE | 2019-08-10 11:08 | ED ---
Chest Pain HPI - General Chief Complaint: Chest Pain Stated Complaint: Chest pain/lt arm pain Time Seen by Provider: 08/10/19 08:20 Source: patient Mode of arrival: ambulatory Limitations: no limitations - History of Present Illness Initial Comments: The patient is a 48-year-old female with past medical history of recurrent costochondritis, possible pulmonary embolism and hyperlipidemia who presents emergency room with reported chest pain. She states that she has had this chest pain for approximately 10 years. She is under the care of Dr. Tobin. Previously she was diagnosed with costochondritis and has been on steroids in the past for treatment. She states that she ended up having an episode of chest pain which began approximately 2 weeks ago. She had a prescription for steroids at home. She called Dr. Tobin's office and he stated that she could start taking it. The pain is located in the center of her chest with radiation to the back of her left arm. It is reproducible on palpation and with inspiration. She states that it is sharp in nature. No associated nausea vomiting or diaphoresis. States it is similar in nature to her previous episodes of pain. She called her primary care physician who is out of town and therefore came into the emergency room for further evaluation. She denies any fevers or chills. No cough or hemoptysis. Does admit to a history of PE. She was placed on anti- coagulation for approximately 1 year. She did get a second opinion and they disputed that the patient had a PE. Patient does not fully believe that she Had one. She is not currently on any anticoagulant. Denies any calf pain or swelling. No history of cardiac disease. Denies having a stress test. Does admit to family history of cardiac disease. Denies any abdominal pain or changes in her bowel or bladder habits. No recent upper respiratory infections. There are no alleviating, precipitating or modifying factors - Related Data Home Medications Medication Instructions Recorded Confirmed Montelukast [Singulair] 10 mg PO HS 10/29/14 04/08/19 Simvastatin 20 mg PO HS 10/29/14 04/08/19 Budesonide/Formoterol Fumarate 2 puff INHALATION RT-DAILY PRN 03/20/16 04/08/19 [Symbicort 160-4.5 Mcg Inhaler] oxyCODONE-APAP 7.5-325MG [Percocet 1 tab PO Q6HR PRN 04/27/18 04/08/19 7.5-325 mg] Fluticasone Nasal [place] [Flonase 2 spr EA NOSTRIL DAILY 08/14/18 04/08/19 Nasal [place]] Albuterol Nebulized [Ventolin 2.5 mg INHALATION RT-Q4H PRN 04/08/19 04/08/19 Nebulized] Fexofenadine HCl [Yumiko Allergy] 180 mg PO DAILY 04/08/19 04/08/19 Gabapentin [Neurontin] 400 mg PO BID 04/08/19 04/08/19 fentaNYL 12MCG/HR PATCH [Duragesic 1 patch TRANSDERM Q72H 04/08/19 04/08/19 12MCG/HR] Previous Rx's Medication Instructions Recorded predniSONE 10 mg PO DAILY #15 tab 04/08/19 Allergies Allergy/AdvReac Type Severity Reaction Status Date / Time No Known Allergies Allergy Verified 08/17/19 10:50 Review of Systems ROS Statement: Those systems with pertinent positive or pertinent negative responses have been documented in the HPI. ROS Other: All systems not noted in ROS Statement are negative. EKG Findings - EKG Comments: EKG Findings:: EKG demonstrates normal sinus rhythm with ventricular rate 75. AK interval 124. QRS 86. QTC of 419. No acute ST segment elevations or depressions concerning for ischemic changes. No hyperacute T waves Past Medical History Past Medical History: Asthma, GERD/Reflux, Hyperlipidemia, Pulmonary Embolus (PE) Additional Past Medical History / Comment(s): OTHER HX; TARLOV CYSTS ON SPINE WITH LOW BACK PAIN/PELVIC PAIN, BENIGN LESIONS ON KIDNEYS, SEASONAL ALLERGIES. FACTOR 5. Pt. 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 Past Anesthesia/Blood Transfusion Reactions: Motion Sickness, Postoperative Nausea & Vomiting (PONV) Past Psychological History: Anxiety Smoking Status: Never smoker Past Alcohol Use History: None Reported Past Drug Use History: None Reported - Past Family History Sister(s) Family Medical History: Cancer Additional Family Medical History / Comment(s): THYROID CANCER Mother Family Medical History: Cancer Additional Family Medical History / Comment(s): PANCREATIC CANCER Father Family Medical History: Cancer, Hyperlipidemia Additional Family Medical History / Comment(s): LUNG CANCER General Exam Limitations: no limitations General appearance: alert, in no apparent distress Head exam: Present: atraumatic, normocephalic, normal inspection Eye exam: Present: normal appearance, PERRL, EOMI. Absent: scleral icterus, conjunctival injection, periorbital swelling ENT exam: Present: normal exam, mucous membranes moist Neck exam: Present: normal inspection. Absent: tenderness, meningismus, lymphadenopathy Respiratory exam: Present: normal lung sounds bilaterally, chest wall tenderness. Absent: respiratory distress, wheezes, rales, rhonchi, stridor Cardiovascular Exam: Present: regular rate, normal rhythm, normal heart sounds. Absent: systolic murmur, diastolic murmur, rubs, gallop, clicks GI/Abdominal exam: Present: soft, normal bowel sounds. Absent: distended, tenderness, guarding, rebound, rigid Extremities exam: Present: normal inspection, full ROM, normal capillary refill. Absent: tenderness, pedal edema, joint swelling, calf tenderness Back exam: Present: normal inspection Neurological exam: Present: alert, oriented X3, CN II-XII intact Psychiatric exam: Present: normal affect, normal mood Skin exam: Present: warm, dry, intact, normal color. Absent: rash Course Vital Signs 08/10/19 08/10/19 08/10/19 08:20 08:49 09:03 Temperature 98.6 F Pulse Rate 86 84 71 Respiratory 18 18 18 Rate Blood Pressure 171/113 137/83 O2 Sat by Pulse 100 100 Oximetry 08/10/19 08/10/19 10:11 11:22 Temperature 98 F Pulse Rate 78 73 Respiratory 20 16 Rate Blood Pressure 128/70 118/84 O2 Sat by Pulse 100 100 Oximetry Chest Pain MDM - MDM Upon arrival the patient is placed into room 4. She is hooked up to continuous pulse ox and cardiac monitoring. A 12-lead EKG is performed. I did recommend laboratory studies and a chest x-ray. CBC is remarkable for a with blood cell count of 12.3. D-dimer is positive at 0.59. CMP is unremarkable. Troponin is negative. Chest x-ray is performed and demonstrates no acute process. I did send the patient over for a CT of her chest after discussion with her that her d-dimer is elevated and not age-adjusted. The patient is aware of the radiation risks however due to her previous history of PE, history of factor V with pleuritic chest pain I did feel the necessity to complete the CT again. It demonstrates no acute pulmonary embolism. Stable appearing nodules on the left kidney. I discussed this with the patient. She was given 15 of Toradol IV and admits to improvement in her symptoms. The patient will be discharged home. I instructed her to continue the steroids that she is already taking. She should not use NSAIDs in conjunction with the steroids as this will cause an upset stomach and possible ulcer. The patient understood this. She is to call her primary care office in follow-up. I did recommend hospitalization for a complete cardiac workup however the patient refused. She is of sound mind and capable of making her own decisions. She states that she has had this pain for several years and would prefer to follow up with her primary care physician and have the ultrasound performed in the outpatient setting. I instructed the patient to return to the emergency room for any new or worsening symptoms she understood. She was then discharged home in stable condition Disposition Clinical Impression: Chest wall pain, Factor 5 Leiden mutation, heterozygous Disposition: HOME SELF-CARE Condition: Stable Instructions (If sedation given, give patient instructions): Chest Wall Pain (ED) Additional Instructions: Please follow-up with your primary care doctor. I do believe that you need a full cardiac workup to include a stress test and echo. Return to the ED for any new or worsening symptoms Is patient prescribed a controlled substance at d/c from ED?: No Referrals: Juan J Tobin DO [Primary Care Provider] - 1-2 days Time of Disposition: 11:08
[2019-08-10 11:22] VITALS: BP 118/84; PULSE 73; RESP 16; TEMP 98
== END 2019-08-10 11:25 | disposition home or self-care (01) ==
LOC: EC 08:16
DX: D68.51 Activated protein C resistance (principal); R91.8 Other nonspecific abnormal finding of lung field; J45.909 Unspecified asthma, uncomplicated; E78.5 Hyperlipidemia, unspecified; F41.9 Anxiety disorder, unspecified; Z79.51 Long term (current) use of inhaled steroids; Z79.891 Long term (current) use of opiate analgesic; Z79.899 Other long term (current) drug therapy; Z87.39 Personal history of other diseases of the musculoskeletal system and connective tissue; Z86.711 Personal history of pulmonary embolism; Z80.1 Family history of malignant neoplasm of trachea, bronchus and lung; Z53.20 Procedure and treatment not carried out because of patient's decision for unspecified reasons
CPT/HCPCS: 99285; 96374; 36415; 93005; 85379; 80053; 83690; 83735; 84484; 85025; 85610; 85730; 71046; 71275; J1885; Q9967

== ENCOUNTER → 2019-08-17 | Outpatient (CLI) | payer BC ==
[2019-08-17 10:49] VITALS: BP 144/89; PULSE 79; RESP 18; TEMP 98.4
--- NOTE | 2019-08-17 11:34 | P.GSHP ---
History of Present Illness H&P Date: 08/17/19 Chief Complaint: nodule left chest wall/breast Heidy is a 48 year old white female seen in consultation for Dr. Tobin with a complaint of a nodule in her left chest wall/breast. She states it has been present for at least 3 months. She states it has not changed in size. It is tender to palpation. Pain is throbbing with palpation and causes aching in her upper left arm. She has a straight of chronic intermittent costochondritis. She had a bilateral mammogram performed at [facility] on [id number]. This was benign BIRADS 1. Two years ago she was seen in the emergency room with some tenderness under her left breast, a d-dimer was performed this was mildly elevated and a CAT scan was done after which she was was diagnosed with a pulmonary embolism and on blood thinners for a year. After her scans were reviewed a year later there was question as to whether she did indeed have a pulmonary embolism. One year ago diagnosed with sickle cell trait. Approximately a week ago she had a repeat episode of pain under her left breast and a repeat elevated d-dimer resulting in a computed tomography scan which was negative for pulmonary embolism at this time. caffiene: 2 cups of coffee/day smoke: none chocolate: none Family History: father: [place] at 39/ tipple bypass at 49/ of lung cancer at 59 mother: of pancreatic cancer at 63 sister: thyroid cancer Hormonal History: menarche: 11 G0 adopted 1 child menopause: no periods 8 months BCP: 11 years hormones: none Surgical history: 1. surgery at [facility]/ Tarlov cyst at inferior aspect of spine (on chronic pian medicine) 2. fibroids removed Medical History: 1. back pain related to Tarlov cyst 2. Chronic costochondritis 3. Sickle cell trait Social history: Smoking: Negative alcohol: none drugs: pain medicine - Constitutional Comment: chronic pain lower back Constitutional: Denies chills, Denies fever - EENT Eyes: denies blurred vision, denies pain Ears: deny: decreased hearing, tinnitus Ears, nose, mouth and throat: Denies headache, Denies sore throat - Breasts Breasts: bilateral: as per HPI - Cardiovascular Cardiovascular: Reports high blood pressure, Denies chest pain, Denies shortness of breath - Respiratory Comment: asthma Respiratory: Denies cough, Denies 7 - Gastrointestinal Gastrointestinal: Denies abdominal pain, Denies diarrhea, Denies nausea, Denies vomiting - Genitourinary (Female) Genitourinary: Denies dysuria, Denies hematuria - Menstruation Comment: perimenopausal - Musculoskeletal Comment: Chronic costochondritis tarlov cyst - Integumentary Comment: none - Neurological Neurological: Denies numbness, Denies weakness - Psychiatric Psychiatric: Reports anxiety - Endocrine Endocrine: Denies fatigue, Denies weight change - Hematologic/Lymphatic Comment: Sickle cell trait - Allergic/Immunologic Allergic/Immunologic: Reports seasonal allergies Past Medical History Past Medical History: Asthma, GERD/Reflux, Hyperlipidemia, Pulmonary Embolus (PE) Additional Past Medical History / Comment(s): OTHER HX; TARLOV CYSTS ON SPINE WITH LOW BACK PAIN/PELVIC PAIN, BENIGN LESIONS ON KIDNEYS, SEASONAL ALLERGIES. FACTOR 5. Pt. states today, 10-26-18, that per her [employer] Case [employer], she did not have a PE in September of 2017 History of Any Multi-Drug Resistant Organisms: None Reported Past Surgical History: Back Surgery, Orthopedic Surgery Additional Past Surgical History / Comment(s): HYSTEROSCOPY/MYOMECTOMY- REMOVAL UTERINE FIBROIDS, TARLOV CYSTS ON SPINE DRAINED AND FILLED WITH BODY FAT 2006), EGD/COLONOSCOPY, BILATERAL LASER SURGERY FOR VISION CORRECTION, SPINAL SPINAL CORD STIMULATOR INSERTION/REMOVAL. Past Anesthesia/Blood Transfusion Reactions: Motion Sickness, Postoperative Nausea & Vomiting (PONV) Past Psychological History: Anxiety Additional Psychological History / Comment(s): PT RESIDES WITH HER 10 YR OLD DAUGHTER. SHE IS INDEPENDENT. Smoking Status: Never smoker Past Alcohol Use History: None Reported Past Drug Use History: None Reported - Past Family History Sister(s) Family Medical History: Cancer Additional Family Medical History / Comment(s): THYROID CANCER Mother Family Medical History: Cancer Additional Family Medical History / Comment(s): PANCREATIC CANCER Father Family Medical History: Cancer, Hyperlipidemia Additional Family Medical History / Comment(s): LUNG CANCER Medications and Allergies Home Medications Medication Instructions Recorded Confirmed Type Montelukast [Singulair] 10 mg PO HS 10/29/14 04/08/19 History Simvastatin 20 mg PO HS 10/29/14 04/08/19 History Budesonide/Formoterol Fumarate 2 puff INHALATION RT-DAILY PRN 03/20/16 04/08/19 History [Symbicort 160-4.5 Mcg Inhaler] oxyCODONE-APAP 7.5-325MG [Percocet 1 tab PO Q6HR PRN 04/27/18 04/08/19 History 7.5-325 mg] Fluticasone Nasal [place] [Flonase 2 spr EA NOSTRIL DAILY 08/14/18 04/08/19 History Nasal [place]] Albuterol Nebulized [Ventolin 2.5 mg INHALATION RT-Q4H PRN 04/08/19 04/08/19 History Nebulized] Fexofenadine HCl [Yumiko Allergy] 180 mg PO DAILY 04/08/19 04/08/19 History Gabapentin [Neurontin] 400 mg PO BID 04/08/19 04/08/19 History fentaNYL 12MCG/HR PATCH [Duragesic 1 patch TRANSDERM Q72H 04/08/19 04/08/19 History 12MCG/HR] predniSONE 10 mg PO DAILY #15 tab 04/08/19 Rx Allergies Allergy/AdvReac Type Severity Reaction Status Date / Time No Known Allergies Allergy Verified 08/17/19 10:50 Surgical - Exam Vital Signs Temp Pulse Resp BP Pulse Ox 98.4 F 79 18 144/89 100 08/17/19 10:41 08/17/19 10:41 08/17/19 10:41 08/17/19 10:41 08/17/19 10:41 BMI 25.9 - General well developed, well nourished, moderate distress - Eyes normal ocular movement - ENT normal pinna, normal nares, no hearing loss, no congestion - Neck no masses, trachea midline, no lymphadectomy, no venous distension - Respiratory normal expansion, normal respiratory effort, clear to percussion, clear to auscultation - Cardiovascular Rhythm: regular Heart Sounds: normal: S1, S2 - Abdomen Abdomen: soft, non tender, bowel sounds, no guarding, no rigid, no rebound - Integumentary normal turgor - Neurologic no disoriented, no combative - Musculoskeletal normal gait, normal posture - Psychiatric oriented to time, oriented to person, oriented to place, speech is normal, memory intact breast exam: bra 36C ptosis: grade 2 Inspection: No skin lesions of concern, no nipple inversion, ptosis grade 2 Palpation: Right breast: Multi-positional exam no dominant masses or nodules of concern, fibrocystic changes Right axilla: No adenopathy of concern Left breast: Multi-positional exam fibrocystic changes increased fullness 12:00 area believed to be fibrocystic in nature tender to palpation Left axilla: No adenopathy of concern Left chest wall just above the breast has increased tenderness at the costochondral junction. There is a small subcutaneous area of nodularity which is believed to be non-worrisome however this is right over the costochondral region and palpation on this most likely exacerbates pain which is m usculoskeletal in nature. Results mammogram results reviewed Assessment and Plan Assessment: Impression: 1 left chest wall nodularity/believed to be non-worrisome 2. Other cystic breast changes bilateral/increased nodularity 12 o'clock position left breast 3. Chronic pain related to tarlov cyst/ percocet daily 4. Chronic intermittent costochondritis 5. Sickle cell trait 6. asthma 7. history of PE in past/? if this was diagnosis 8. family history of heart disease/father had [place] at 39 9. anxiety 10. Bilateral Mammogram June 2019 no lesions of concern Plan: 1. Ultrasound left breast and chest wall 2. We have discussed fibrocystic breast changes and pain related to that patient will attempt to decrease caffeine intake 3. Patient is perimenopausal were obtained FSH and LH levels 4. continue treatment of costochondritis as per Dr. Tobin 5. book on breast pain given to patient CC: Dr. Tobin encounter 45 minutes > 50% spent in planning and counselling Time with Patient: Greater than 30
== END ==
LOC: WWCWWP 09:56
PROVIDERS: ATTEND Surgery
DX: Z53.9 Procedure and treatment not carried out, unspecified reason (principal)

== ENCOUNTER → 2019-08-29 | Outpatient (CLI) | payer BC ==
[2019-08-30 00:46] LABS: Luteinizing Hormone 35.6 mIU/mL
[2019-08-30 00:47] LABS: Follicle Stimulating Hormone 71.2 mIU/mL
== END | disposition home or self-care (01) ==
LOC: LABWHC1 15:12
PROVIDERS: ATTEND Surgery
DX: N95.9 Unspecified menopausal and perimenopausal disorder (principal)
CPT/HCPCS: 36415; 83001; 83002

== ENCOUNTER → 2019-08-29 | Outpatient (CLI) | payer BC ==
--- NOTE | 2019-08-29 11:39 | USB ---
Reason for exam: clinical finding. Physical Findings: Nurse Summary: Patient complains of pain x 2 months, subtle nodule left breast 10-11 o'clock (nurse leona). US Breast LT Technologist: Danisha Carter Left complete breast ultrasound includes all four quadrants, the retroareolar region and axilla. Finding demonstrates no cystic or solid lesion seen. No suspicious sonographic finding. These results were verbally communicated with the patient and result sheet given to the patient on 08/29/19. ASSESSMENT: Negative, BI-RAD 1 RECOMMENDATION: Routine screening mammogram of both breasts in 1 year. Manage patient on a clinical basis.
== END | disposition home or self-care (01) ==
LOC: RADUSWWP 10:08
PROVIDERS: ATTEND Surgery
DX: N63.20 Unspecified lump in the left breast, unspecified quadrant (principal)

== ENCOUNTER → 2020-10-01 | Outpatient (CLI) | payer OTHER ==
[2020-10-01 09:12] VITALS: BP 161/86; PULSE 109; RESP 16; TEMP 97.9
== END ==
LOC: PNWHC3 08:54
PROVIDERS: ATTEND Anesthesiology
DX: G89.29 Other chronic pain (principal); J45.909 Unspecified asthma, uncomplicated; E78.5 Hyperlipidemia, unspecified
CPT/HCPCS: 99211

== ENCOUNTER → 2020-10-10 | Outpatient (CLI) | payer OTHER ==
--- NOTE | 2020-10-20 10:37 | MM ---
Reason for exam: screening (asymptomatic). Last mammogram was performed 1 year and 4 months ago. History: Patient is nulliparous. Benign excisional biopsy of the left breast, August 2019. Physical Findings: A clinical breast exam by your physician is recommended on an annual basis and results should be correlated with mammographic findings. MG 3D Screening Mammo W/Cad Bilateral CC and MLO view(s) were taken. Prior study comparison: June 12, 2019, mammogram, performed at [facility]. May 03, 2018, mammogram, performed at [facility]. The breast tissue is extremely dense which could obscure a lesion on mammography. Finding: There is a typically benign high density, round mass in the inner quadrant of the left breast. New finding since June 12, 2019 and May 03, 2018. ASSESSMENT: Incomplete: need additional imaging evaluation, BI-RAD 0 RECOMMENDATION: Special view mammogram of the left breast. If lesion persists on supplemental views, image directed ultrasound is recommended. [facility] will attempt to contact patient to return for supplemental views and ultrasound if indicated.
== END | disposition home or self-care (01) ==
LOC: RADMAMWWP 13:17
PROVIDERS: ATTEND Surgery
DX: Z12.31 Encounter for screening mammogram for malignant neoplasm of breast (principal)
CPT/HCPCS: 77063; 77067

== ENCOUNTER → 2020-10-17 | Outpatient (CLI) | payer BC, OTHER ==
--- NOTE | 2020-10-01 09:44 | P.PAINPG ---
Subjective Progress Note Date: 10/01/20 This is a 50-year-old lady with history of coccygodynia status post Tarlov cyst removal surgically. We last saw her in 2019 where we performed ganglion impar block with no help. At the time she was using Percocet 4-6 times a day and fentanyl patch 37.5 mics/Hr q 72 hours. We had started her on neurontin 300 mg QD and then BID at the time. She is currently on Percocet 7.5 Q4H as well as Fentanyl patch 12.5 mcg/hr from Dr. oTbin. She is also gabapentin 400 mg BID. She notes that she is to be in significantly higher opioid doses and has done her best to wean down. Overall her pain is located in the tailbone area with occasional radiation into the buttocks. Her pain gets worse with bowel movements and any form of sitting. Most recently in the last 3 weeks her pain is escalated and even resting doesn't provide her any relief. She is also noticing that her pain medications are not helping as much at this time. In terms of management she had a ganglion impar block about 2 years ago through a pain clinic which she said ultimately didn't provide her meaningful relief. It did help with some paravertebral pain but not her tailbone pain. She has not had any injections since then. She notes that she's been told in the past that she has Tarlov cysts in her sacrum and has had these drained multiple times with no relief. She also mentioned she had a procedure [facility] with a drain the cyst and filled with adipose tissue, however she had complications with that and ultimately did not help her much. 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 Today, pt denies new-onset weakness, bowel/bladder incontinence, or any other signs or symptoms of cauda equina syndrome. There are no signs of acute intoxication, and no indications of medication diversion or overuse. In addition to above, 13-point review of systems is also negative for chest pain, shortness of breath, changes in vision, changes in hearing, new onset weakness, abdominal pain, diarrhea, extreme fatigue, malaise, fever, skin changes, homicidal or suicidal ideation, or bowel or bladder incontinence. Vital Signs: Reviewed in EMR Gen: AAOx3, NAD HEENT: PERRLA,hearing grossly normal Pulm: resp unlabored,CTA Neck: supple, trachea midline Neuro exam of the lower extremities: Normal muscle strength in the lower extremities Straight leg raising test:negative Dylan's test:negative Range of motion of the lumbar spine: limited in flexion Tenderness in the paravertebral musculature: Positive tenderness around the tip of the coccyx Neuro: CN II-XII grossly intact, reflexes intact Imaging: Reviewed in EMR/chart Assessment: Coccygodynia status post Tarlov cyst removal Scoliosis Plan: 1. Explanation: Opioid and psychological risk scores were reviewed. Diagnoses, prognoses, and multiple treatment options including but not limited to physical therapy, interventional therapies, adjuvant medical therapies, narcotic medication therapies, and surgery were discussed with the patient and all questions were answered to the patient's satisfaction. 2. Opioid agreement: Opioids are not prescribed by our clinic. We did a long discussion regarding opioids and opioid-induced hyperalgesia, however this patient is on is very insightful as trying her best to wean down as best she can. However at this point she feels like she does need them to keep her functional 3. Counseling: The patient was counseled extensively on SMOKING CESSATION, BODY MASS INDEX, EXERCISE. Specifically, the patient was instructed regarding the importance of smoking cessation, obesity, and exercise in the context of both chronic pain and overall health. 4. Procedures: Given that her a ganglion impar block did not help significantly last time, I will schedule her for a caudal epidural steroid injection. There are some case reports showing that they can be effective for coccyx pain resulting from Tarlov cysts. 5. Consultations: None 6. Investigations: She has not had imaging in some time and given her recent flareup of pain I will order a lumbar and pelvis MRI with and without contrast to evaluate for any new lesions. 7. Medications: She is unsure for gabapentin is helpful and just ran out today. I will refill her gabapentin 400 mg but increase it to 3 times a day to try to help with her analgesia. We'll also start her on Mobic 15 mg once a day. She will continue to get her opioid medications from Dr. Tobin. 8. Disposition: Return to clinic in 4 weeks 9. Maps were reviewed and were appropriate. I spent 45 minutes reviewing the patient's chart, going over patient's medications, talking to the patient, and discussing plan of care PQRS Measure Charge Sheet PQRS Narrative: Smoking Status Never smoker Hx Alcohol Use (MH) No Home Medications: Ambulatory Orders Montelukast [Singulair] 10 mg PO HS 10/29/14 Simvastatin 20 mg PO HS 10/29/14 Budesonide/Formoterol Fumarate [Symbicort 160-4.5 Mcg Inhaler] 2 puff INHALATION RT-DAILY PRN 03/20/16 oxyCODONE-APAP 7.5-325MG [Percocet 7.5-325 mg] 1 tab PO Q6HR PRN 04/27/18 Fluticasone Nasal [place] [Flonase Nasal [place]] 2 spr EA NOSTRIL DAILY PRN 08/14/18 Fexofenadine HCl [Yumiko Allergy] 180 mg PO DAILY 04/08/19 fentaNYL 12MCG/HR PATCH [Duragesic 12MCG/HR] 1 patch TRANSDERM Q72H 04/08/19 Sertraline [Zoloft] 50 mg PO DAILY 09/30/20 Gabapentin [Neurontin] 400 mg PO TID 30 Days #90 cap 10/01/20 Meloxicam [Mobic] 15 mg PO DAILY 30 Days #60 tab 10/01/20 Controlled Substance Measures - Controlled Substance Measures Is patient prescribed a controlled substance at discharge?: Yes When asked, does pt state using other controlled substances?: No If prescribed controlled substance>3 days was MAPS reviewed?: Yes If Rx opioid, was Start Talking consent form obtained?: No If opioid is for acute pain is fill amount 7 days or less?: No Was information provided regarding opioid addiction?: Yes
[2020-10-17 13:28] VITALS: BP 147/94; PULSE 72; RESP 18; TEMP 98.5
--- NOTE | 2020-10-17 14:07 | P.PN ---
Subjective Progress Note Date: 10/17/20 Principal diagnosis: abnormal left breast mammogram Heidy is a 50 year old white female seen in consultation for Dr. Tobin about 1 year ago with a complaint of a nodule in her left chest wall/breast. The nodule has been present for at least 1 year. She states it has not changed in size. It is tender only tender to palpation. She has had chronic intermittent costochondritis. She had a bilateral mammogram performed at [facility] on June1219. This was benign BIRADS 1. She had a most recent mammogram here on . The preliminary report was held until the films from [place] could be reviewed. It is now recommended that she have diagnostic mammogram done of the left breast. Three years ago she was seen in the emergency room with some tenderness under her left breast, a d-dimer was performed this was mildly elevated and a CAT scan was done after which she was was diagnosed with a pulmonary embolism and on blood thinners for a year. After her scans were reviewed a year later there was question as to whether she did indeed have a pulmonary embolism. Two years ago diagnosed with sickle cell trait. Approximately one year ago she had a repeat episode of pain under her left breast and a repeat elevated d-dimer resulting in a computed tomography scan which was negative for pulmonary embolism at this time. She has persistent left breast nodularity in the upper inner quadrant. This is persistently tender. She has no other lumps masses or not his of concern in her breast. One year ago we did an FNA of this area which was nondiagnostic. caffiene: 2 cups of coffee/day smoke: none chocolate: none Family History: father: [place] at 39/ tipple bypass at 49/ of lung cancer at 59 mother: of pancreatic cancer at 63 sister: thyroid cancer Hormonal History: menarche: 11 G0 adopted 1 child menopause: no periods 8 months BCP: 11 years hormones: none Surgical history: 1. surgery at [facility]/ Tarlov cyst at inferior aspect of spine (on chronic pian medicine) 2. fibroids removed Medical History: 1. back pain related to Tarlov cyst/ pain contract related to sacral cyst 2. Chronic costochondritis 3. Sickle cell trait Social history: Smoking: Negative alcohol: none drugs: pain medicine - Constitutional Comment: chronic pain lower back Constitutional: Denies chills, Denies fever - EENT Eyes: denies blurred vision, denies pain Ears: deny: decreased hearing, tinnitus Ears, nose, mouth and throat: Denies headache, Denies sore throat - Breasts Breasts: bilateral: as per HPI - Cardiovascular Cardiovascular: Reports high blood pressure, Denies chest pain, Denies shortness of breath - Respiratory Comment: asthma Respiratory: Denies cough - Gastrointestinal Gastrointestinal: Denies abdominal pain, Denies diarrhea, Denies nausea, Denies vomiting - Genitourinary (Female) Genitourinary: Denies dysuria, Denies hematuria - Menstruation Comment: perimenopausal - Musculoskeletal Comment: Chronic costochondritis tarlov cyst - Integumentary Comment: none - Neurological Neurological: Denies numbness, Denies weakness - Psychiatric Psychiatric: Reports anxiety - Endocrine Endocrine: Denies fatigue, Denies weight change - Hematologic/Lymphatic Comment: Sickle cell trait - Allergic/Immunologic Allergic/Immunologic: Reports seasonal allergies Objective - Vital Signs Vital signs: Vital Signs Temp 98.5 F 10/17/20 13:24 Pulse 72 10/17/20 13:24 Resp 18 10/17/20 13:24 BP 147/94 10/17/20 13:24 Pulse Ox 100 10/17/20 13:24 Intake & Output 10/16/20 10/17/20 10/17/20 18:59 06:59 18:59 Weight 63.503 kg - Exam BMI 24.8 - Constitutional General appearance: Present: average body habitus - EENT Eyes: Present: EOMI ENT: Present: hearing grossly normal - Neck Neck: Present: normal ROM - Respiratory Respiratory: bilateral: CTA - Cardiovascular Rhythm: regular Heart sounds: normal: S1, S2 - Gastrointestinal General gastrointestinal: Present: soft - Integumentary Integumentary: Present: normal turgor - Musculoskeletal Musculoskeletal: Present: gait normal - Psychiatric Psychiatric: Present: A&O x's 3 - Additional findings Additional findings: Breast exam: Bra: 36C inspection: Bilateral grade 2 ptosis Palpation: Bypass: Multiple positional exam fibrocystic changes, no dominant masses or nodules of concern Right axilla: No adenopathy of concern Left breast: Multiple positional exam fibrocystic changes, small area of nodularity in the upper inner quadrant most likely fibrocystic change this is been persistent over the past year Left axilla: No adenopathy of concern Assessment and Plan Assessment: Impression: 1. Left chest wall nodularity felt to be stable but tender to palpation 2. Fibrocystic breast changes 3. Chronic pain related to time off cyst/Percocet daily 4. Chronic intermittent costochondritis 5. Sickle cell trait 6. Asthma 7. History of questionable pulmonary embolism in the past 8. Family history of heart disease father had [place] at 39 9. Anxiety 10. Most recent mammogram [id number] awaiting formal reading and diagnostic studies of left breast recommended Plan: 1. Diagnostic left breast mammogram/ patient will call for results 2. Follow-up after diagnostic studies are performed 3. Probable resection of left chest wall nodule in the operating room secondary to persistent tenderness/ follow up in November prior to this CC: Dr. Tobin encounter 25 minutes, time spent in examination, review medical records, and counselling
== END ==
LOC: WWCWWP 13:04
PROVIDERS: ATTEND Surgery
DX: N60.12 Diffuse cystic mastopathy of left breast (principal); N60.11 Diffuse cystic mastopathy of right breast; G89.29 Other chronic pain; M94.0 Chondrocostal junction syndrome [Tietze]; D57.3 Sickle-cell trait; J45.909 Unspecified asthma, uncomplicated; Z82.49 Family history of ischemic heart disease and other diseases of the circulatory system
CPT/HCPCS: 77061; 77065

== ENCOUNTER → 2020-10-17 | Outpatient (CLI) | payer OTHER ==
--- NOTE | 2020-10-17 13:57 | MR ---
EXAMINATION TYPE: MR lspine/sacrum wo con DATE OF EXAM: 10/17/2020 COMPARISON: CT lumbar spine and pelvis October 06, 2017. HISTORY: coccydynia, pain TECHNIQUE: Multiplanar, multisequence imaging of the lumbar spine and sacrum are performed without IV contrast. FINDINGS: Lumbar spine: Persistent slight levoconvex scoliotic curvature centered near lumbosacral junction. Sagittal images of the lumbar spine show vertebral body heights and alignment to appear satisfactory. Multilevel disc desiccation. Disc space heights are maintained. The conus medullaris is low in position ending near L2-L3 disc space. No abnormal signal noted. No suspicious clumping or thickening of lumbosacral ner ve roots. The bone marrow signal intensity is within normal limits. Axial images show T12-L1 and L1-L2 level to appear within normal limits. Axial images at L2-L3 level show mild facet arthropathy bilaterally. Axial images at L3-L4 level show mild facet arthropathy and mild broad disc bulge. Spinal canal is pr eserved. Axial images at L4-L5 level show mild marked facet degenerative changes bilaterally. There is mild br oad-based posterior disc protrusion minimally effacing anterior thecal sac. Axial images at L5/S1 level mild facet degenerative changes bilaterally. Tiny central disc protrusion mildly facing anterior thecal sac. IMPRESSION: Slight scoliotic curvature. Low-lying conus medullary is without abnormal signal or suspi cious clumping of lumbosacral nerve roots. Mild multilevel degenerative changes as detailed above. Sacrum: There is persistent erosive change or scalloping of the posterior S2 vertebra. There is evidence of p osterior decompression and the sacrum with ovoid 1.8 x 1.8 cm lesion posterior aspect of the sacral c anal image 12 series 701 of predominantly fat density an MRI which correlates with CT image 57, this is unchanged from 2018 CT. This could reflect herniated deep fat or surgical change. Inferior spinal canal redemonstrates hyperexpansion and scalloping of the posterior margin of the sacrum nearly up to coccyx. Deeper posterior fat shows artifact and surgical changes related to scarring. There is slightly retroflexed uterus. There is thickening of the junctional zone suspected. A few tin y nabothian cysts in the cervix sagittal image 14 series 701. Small mild free fluid in the left pelvi s axial image 8. IMPRESSION: Surgical change is redemonstrated. Persistent enlarged spinal canal with mass effect on t he posterior margin of the sacrum. Overall I cannot appreciate any significant change from the 2018 [address] T. Clinical correlation advised. Small amount of free fluid in the left pelvis is abnormal finding in postmenopausal female. Uterus suspicious for adenomyosis, correlate clinically.
== END ==
LOC: RADMRIMAIN 11:47
PROVIDERS: ATTEND Anesthesiology
DX: M43.8X6 Other specified deforming dorsopathies, lumbar region (principal)
CPT/HCPCS: 72148; 72195

== ENCOUNTER → 2020-10-29 | Outpatient (CLI) | payer OTHER ==
[2020-10-29 12:31] VITALS: BP 153/91; PULSE 67; RESP 18; TEMP 98.2
--- NOTE | 2020-10-29 12:49 | P.PN ---
Subjective Progress Note Date: 10/29/20 Heidy is a pleasant 50-year-old female presenting today for follow-up. She has a history of chronic low back pain along the sacrum. 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 She continues to have pain in the same area. There is no neurologic dysfunction noted. There are no radicular symptoms just tonic pain in that area. She continues to use pain medication as prescribed by her doctor, she was seen about a month ago and was started on Mobic which she reports has helped some. She continues to use gabapentin, motor, along with oxycodone and fentanyl. Her pain is usually worse with sitting for long present time or driving the car. She has no problems with walking. She sleeps very well. She denies any side effects from the medications overall. Review of Systems: Denies any New chest pain, short of breath, Nausea/vomitting, abdominal pain, bowel or bladder incontinence, or any overt new neurologic symptoms in his upper or lower extremities. Objective - Vital Signs Vital signs: Vital Signs Temp 98.2 F 10/29/20 12:23 Pulse 67 10/29/20 12:23 Resp 18 10/29/20 12:23 BP 153/91 10/29/20 12:23 Pulse Ox 100 10/29/20 12:23 Intake & Output 10/28/20 10/29/20 10/29/20 18:59 06:59 18:59 Weight 63.503 kg - Exam General: Awake and alert oriented 3 no distress Respiratory exam: No audible wheezing no accessory muscle usage Cervical spine: Normal alignment, Spurling's negative Lumbar spine: Forward flexed body position, loss of lordosis, lower extremity strength is 5 out of 5 bilaterally. Sacroiliac joints: Nontender to palpation, SHAGUFTA is negative, Gaenselon negative Neuro exam: Normal sensation in bilateral upper extremities, deep tendon reflexes are 2+ bilateral upper extremities. Normal sensation in bilateral lower extremities. Deep tendon reflexes are 2+ in lower extremities. Gait is normal Psych exam: Cooperative, appropriate mood Assessment and Plan Assessment: #1 history of Tarlov cyst #2 lumbar radiculopathy 3 opioid dependence #4 chronic pain Plan: At this point we will continue the current medications, I gave her 2 refills and gabapentin and molded. I'll change him over to 7.5 mg twice a day so she can try to use it twice a day or just once in the morning to find more benefit that way. She will follow with Dr. Beasley for her opioid medications. I explained to her that she would likely benefit from decreasing office visits and following up with [address] Beasley. He should be with the prescribed Mobic as well as gabapentin along with her opiates. We'll see her in a couple weeks for her caudal epidural injection appointment. I have spent 32 minutes on patient care today. The time was used to review the medical records including relevant urine studies and Prescription history (MAPs), review of the available imaging, evaluation and examination of the patient, coordination of care with the medical staff and if applicable referring physicians, as well as creation of the medical record. Maps were checked and appropriate, opioid start talking form is on file and updated, urine drug screens of been appropriate and have been reviewed.
== END ==
LOC: PNWHC3 12:10
PROVIDERS: ATTEND Hospitalist
DX: M54.16 Radiculopathy, lumbar region (principal); F11.20 Opioid dependence, uncomplicated; G89.29 Other chronic pain; Z87.39 Personal history of other diseases of the musculoskeletal system and connective tissue
CPT/HCPCS: 99211

== ENCOUNTER 2020-11-09 15:03 | Emergency (ER) | payer OTHER ==
[2020-11-09 16:00] VITALS: TEMP 98
[2020-11-09 16:29] LABS: Basophils # (A) 0.1 k/uL (0-0.2); Basophils % (A) 1 %; Eosinophils # (A) 0.1 k/uL (0-0.7); Eosinophils % (A) 1 %; HCT 37.9 % (34.0-46.0); HGB 13.3 gm/dL (11.4-16.0); Lymphocytes # (A) 2.5 k/uL (1.0-4.8); Lymphocytes % (A) 27 %; MCHC 35.2 g/dL (31.0-37.0); MCV 82.3 fL (80.0-100.0); Monocytes # (A) 0.4 k/uL (0-1.0); Monocytes % (A) 5 %; Neutrophils % (A) 65 %; Platelet Count 332 k/uL (150-450); RDW 12.7 % (11.5-15.5); WBC 9.2 k/uL (3.8-10.6)
[2020-11-09 16:41] LABS: Albumin 5.1 g/dL (3.5-5.0); Calcium 9.7 mg/dL (8.4-10.2); Potassium 3.6 mmol/L (3.5-5.1); Total Bilirubin 0.4 mg/dL (0.2-1.3); Total Protein 7.8 g/dL (6.3-8.2)
[2020-11-09 17:10] LABS: D-Dimer 0.35 mg/L FEU (<0.60); INR 0.9 (<1.2); Partial Thromboplastin Time 22.8 sec (22.0-30.0); Prothrombin Time 9.9 sec (9.0-12.0)
--- NOTE | 2020-11-09 17:51 | ED ---
Arrhythmia/Palpitations HPI - General Chief Complaint: Arrhythmia/Palpitations Stated Complaint: Dizzines,feels like her heart is racing, Time Seen by Provider: 11/09/20 17:36 Source: patient, RN notes reviewed Mode of arrival: ambulatory Limitations: no limitations - History of Present Illness Initial Comments: Patient is a 50-year-old female that presents to the emergency department with palpitations and anxiety. 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 She also notes that she has seen a few doctors such as her pain medicine DrSudarshan and scheduled a procedure to help with lumbar spine pain. She notes that all of these things together has increased anxiety and stress. She notes that he wants in a while she gets palpitations were heartbeats with fast. She was in no apparent distress or pain while sitting up in bed during the exam and interview. She reported that she used to be on Xanax 0.25 mg per pain medicine DrSudarshan stated that he didn't want her taking that while taking pain medication. She noted that she did recently get a new job that has been more stressful. She denied any chest pain shortness of breath headache nausea vomiting diarrhea constipation fever fatigue chills. - Related Data Home Medications Medication Instructions Recorded Confirmed Montelukast [Singulair] 10 mg PO HS 10/29/14 10/28/20 Simvastatin 20 mg PO HS 10/29/14 10/28/20 Budesonide/Formoterol Fumarate 2 puff INHALATION RT-DAILY PRN 03/20/16 10/28/20 [Symbicort 160-4.5 Mcg Inhaler] oxyCODONE-APAP 7.5-325MG [Percocet 1 tab PO Q6HR PRN 04/27/18 10/28/20 7.5-325 mg] Fluticasone Nasal [place] [Flonase 2 spr EA NOSTRIL DAILY PRN 08/14/18 10/28/20 Nasal [place]] Fexofenadine HCl [Yumiko Allergy] 180 mg PO DAILY PRN 04/08/19 10/28/20 fentaNYL 12MCG/HR PATCH [Duragesic 1 patch TRANSDERM Q72H 04/08/19 10/28/20 12MCG/HR] Sertraline [Zoloft] 50 mg PO DAILY 09/30/20 10/28/20 Previous Rx's Medication Instructions Recorded Gabapentin [Neurontin] 400 mg PO TID 30 Days #90 cap 10/29/20 Meloxicam [Mobic] 7.5 mg PO BID PRN 30 Days #60 tab 10/29/20 Allergies Allergy/AdvReac Type Severity Reaction Status Date / Time No Known Allergies Allergy Verified 11/09/20 16:00 Review of Systems ROS Statement: Those systems with pertinent positive or pertinent negative responses have been documented in the HPI. ROS Other: All systems not noted in ROS Statement are negative. Past Medical History Past Medical History: Asthma, GERD/Reflux, Hyperlipidemia, Pulmonary Embolus (PE) Additional Past Medical History / Comment(s): OTHER HX; TARLOV CYSTS ON SPINE with SACRAL/PELVIC PAIN, BENIGN LESIONS ON KIDNEYS, SEASONAL ALLERGIES. FACTOR 5, ELEVATED D-Dimer. Pt. states that per her [place] Administrative [employer] after reviewing scans she did not have a PE in September of 2017, continues to experience elevated d-dimer with lab work. family hx of elevated d-dimer. costochondritis History of Any Multi-Drug Resistant Organisms: None Reported Past Surgical History: Back Surgery, Orthopedic Surgery Additional Past Surgical History / Comment(s): HYSTEROSCOPY/MYOMECTOMY- REMOVAL UTERINE FIBROIDS, TARLOV CYSTS ON SPINE DRAINED AND FILLED WITH BODY FAT 2006), EGD/COLONOSCOPY, BILATERAL LASER SURGERY FOR VISION CORRECTION SPINAL CORD STIMULATOR INSERTION/REMOVAL. Past Anesthesia/Blood Transfusion Reactions: Motion Sickness, Postoperative Nausea & Vomiting (PONV) Past Psychological History: Anxiety Smoking Status: Never smoker Past Alcohol Use History: None Reported Past Drug Use History: None Reported - Past Family History Sister(s) Family Medical History: Cancer Additional Family Medical History / Comment(s): THYROID CANCER Mother Family Medical History: Cancer Additional Family Medical History / Comment(s): PANCREATIC CANCER Father Family Medical History: Cancer, Hyperlipidemia Additional Family Medical History / Comment(s): LUNG CANCER General Exam Limitations: no limitations General appearance: alert, in no apparent distress, anxious Head exam: Present: atraumatic, normocephalic, normal inspection Eye exam: Present: normal appearance, PERRL, EOMI. Absent: scleral icterus, conjunctival injection, periorbital swelling Neck exam: Present: normal inspection. Absent: tenderness, meningismus, lympha denopathy Respiratory exam: Present: normal lung sounds bilaterally. Absent: respiratory distress, wheezes, rales, rhonchi, stridor Cardiovascular Exam: Present: regular rate, normal rhythm, normal heart sounds. Absent: systolic murmur, diastolic murmur, rubs, gallop, clicks GI/Abdominal exam: Present: soft, normal bowel sounds. Absent: distended, tenderness, guarding, rebound, rigid Extremities exam: Present: normal inspection, full ROM, normal capillary refill. Absent: tenderness, pedal edema, joint swelling, calf tenderness Neurological exam: Present: alert, oriented X3, CN II-XII intact Psychiatric exam: Present: normal affect, normal mood Skin exam: Present: warm, dry, intact, normal color. Absent: rash Course Vital Signs 11/09/20 11/09/20 15:57 18:05 Temperature 98.0 F Pulse Rate 102 H 68 Respiratory 20 16 Rate Blood Pressure 157/83 136/84 O2 Sat by Pulse 100 98 Oximetry EKG Findings - EKG Comments: EKG Findings:: Ventricular rate 79 bpm, ME interval 128 ms, QRS duration 90 ms, QT/QTC 376/431 ms, PRT axes 61/14/49. Normal sinus rhythm. Normal ECG. Medical Decision Making - Medical Decision Making 50-year-old female with palpitations and anxiety for the past several months. Chest x-ray, labs, EKG, secured entrance monitor Labs unremarkable, EKG within normal limits, chest x-ray negative for any acute cardiopulmonary process. Case discussed with Dr. Perdue, patient can discharge home. - Lab Data Result diagrams: 11/09/20 16:23 11/09/20 16:23 Lab Results 11/09/20 11/09/20 11/09/20 Range/Units 16:23 16:23 16:23 WBC 9.2 (3.8-10.6) k/uL RBC 4.60 (3.80-5.40) m/uL Hgb 13.3 (11.4-16.0) gm/dL Hct 37.9 (34.0-46.0) % MCV 82.3 (80.0-100.0) fL MCH 29.0 (25.0-35.0) pg MCHC 35.2 (31.0-37.0) g/dL RDW 12.7 (11.5-15.5) % Plt Count 332 (150-450) k/uL MPV 8.0 Neutrophils % 65 % Lymphocytes % 27 % Monocytes % 5 % Eosinophils % 1 % Basophils % 1 % Neutrophils # 6.0 (1.3-7.7) k/uL Lymphocytes # 2.5 (1.0-4.8) k/uL Monocytes # 0.4 (0-1.0) k/uL Eosinophils # 0.1 (0-0.7) k/uL Basophils # 0.1 (0-0.2) k/uL PT 9.9 (9.0-12.0) sec INR 0.9 (<1.2) APTT 22.8 (22.0-30.0) sec D-Dimer 0.35 (<0.60) mg/L FEU Sodium 141 (137-145) mmol/L Potassium 3.6 (3.5-5.1) mmol/L Chloride 102 (98-107) mmol/L Carbon Dioxide 28 (22-30) mmol/L Anion Gap 11 mmol/L BUN 13 (7-17) mg/dL Creatinine 1.00 (0.52-1.04) mg/dL Est GFR (CKD-EPI)AfAm 75 (>60 ml/min/1.73 sqM) Est GFR (CKD-EPI)NonAf 65 (>60 ml/min/1.73 sqM) Glucose 112 H (74-99) mg/dL Calcium 9.7 (8.4-10.2) mg/dL Total Bilirubin 0.4 (0.2-1.3) mg/dL AST 27 (14-36) U/L ALT 16 (4-34) U/L Alkaline Phosphatase 74 (38-126) U/L Troponin I (0.000-0.034) ng/mL Total Protein 7.8 (6.3-8.2) g/dL Albumin 5.1 H (3.5-5.0) g/dL 11/09/20 Range/Units 16:23 WBC (3.8-10.6) k/uL RBC (3.80-5.40) m/uL Hgb (11.4-16.0) gm/dL Hct (34.0-46.0) % MCV (80.0-100.0) fL MCH (25.0-35.0) pg MCHC (31.0-37.0) g/dL RDW (11.5-15.5) % Plt Count (150-450) k/uL MPV Neutrophils % % Lymphocytes % % Monocytes % % Eosinophils % % Basophils % % Neutrophils # (1.3-7.7) k/uL Lymphocytes # (1.0-4.8) k/uL Monocytes # (0-1.0) k/uL Eosinophils # (0-0.7) k/uL Basophils # (0-0.2) k/uL PT (9.0-12.0) sec INR (<1.2) APTT (22.0-30.0) sec D-Dimer (<0.60) mg/L FEU Sodium (137-145) mmol/L Potassium (3.5-5.1) mmol/L Chloride (98-107) mmol/L Carbon Dioxide (22-30) mmol/L Anion Gap mmol/L BUN (7-17) mg/dL Creatinine (0.52-1.04) mg/dL Est GFR (CKD-EPI)AfAm (>60 ml/min/1.73 sqM) Est GFR (CKD-EPI)NonAf (>60 ml/min/1.73 sqM) Glucose (74-99) mg/dL Calcium (8.4-10.2) mg/dL Total Bilirubin (0.2-1.3) mg/dL AST (14-36) U/L ALT (4-34) U/L Alkaline Phosphatase (38-126) U/L Troponin I <0.012 (0.000-0.034) ng/mL Total Protein (6.3-8.2) g/dL Albumin (3.5-5.0) g/dL - EKG Data -: EKG Interpreted by Co EKG shows normal: sinus rhythm Rate: normal EKG Comments: Ventricular rate 79 bpm, ME interval 128 ms, QRS duration 90 ms, QT/QTC 376/431 ms, PRT axes 61/14/49. Normal sinus rhythm. Normal ECG. - Radiology Data Radiology results: report reviewed, image reviewed Chest x-ray: No acute cardiopulmonary process. Disposition Clinical Impression: Palpitations, Anxiety Disposition: HOME SELF-CARE Condition: Stable Instructions (If sedation given, give patient instructions): Heart Palpitations (ED), Generalized Anxiety Disorder (ED) Additional Instructions: Please return to the Emergency Department if symptoms worsen or any other concerns. Follow-up with primary care in 3-5 days, discuss options for antianxiety medications. Try to reduce stress at home and at work if possible. Is patient prescribed a controlled substance at d/c from ED?: No Referrals: Juan J Tobin DO [Primary Care Provider] - 1-2 days Time of Disposition: 18:37
[2020-11-09 18:06] VITALS: RESP 16
--- NOTE | 2020-11-09 18:30 | XR ---
EXAMINATION TYPE: XR chest 2V DATE OF EXAM: 11/09/2020 COMPARISON: 08/10/2019. HISTORY: Palpitations. TECHNIQUE: Frontal and lateral views of the chest are obtained. FINDINGS: There is no focal air space opacity, pleural effusion, or pneumothorax seen. The cardiac silhouette size is within normal limits. The osseous structures are intact. IMPRESSION: No acute cardiopulmonary process.
[2020-11-09 18:54] VITALS: BP 121/87; PULSE 87
== END 2020-11-09 18:56 | disposition home or self-care (01) ==
LOC: EC 15:03
DX: F41.9 Anxiety disorder, unspecified (principal); R00.2 Palpitations; E78.5 Hyperlipidemia, unspecified; J45.909 Unspecified asthma, uncomplicated; K21.9 Gastro-esophageal reflux disease without esophagitis; Z79.1 Long term (current) use of non-steroidal anti-inflammatories (NSAID); Z86.711 Personal history of pulmonary embolism
CPT/HCPCS: 36415; 71046; 80053; 84484; 85025; 85379; 85610; 85730; 93005; 99285

== ENCOUNTER 2020-12-16 08:54 | Day surgery (SDC) | payer OTHER ==
[~2020-12-16 08:54] MED LIST changes: +LACTATED RINGERS 1,000 ML IV SCH; -SODIUM CHLORIDE 0.9% 500 ML 500 ML IV SCH
[2020-12-16 09:15] VITALS: TEMP 98.8
[2020-12-16] MEDS ORDERED: ROPIVACAINE 5MG/ML 20ML VIAL ONE (09:38)
[2020-12-16] MEDS ORDERED: IOPAMIDOL M200 10 ML VIAL ONE (09:38)
[2020-12-16] MEDS ORDERED: fentaNYL (PF) 50 MCG/ML 2 ML AMP ONE (09:38)
[2020-12-16] MEDS ORDERED: MIDAZOLAM 2 MG/2 ML VIAL ONE (09:38)
[2020-12-16] MEDS ORDERED: DEXAMETHASONE SOD PHOSPHATE 10 MG/ML 1 ML VIAL ONE (09:38)
[2020-12-16] MEDS ORDERED: IV FLUID CONTINUATION 800 ML IV ONE (10:03)
--- NOTE | 2020-12-16 10:03 | P.PCN ---
Date of Procedure: 12/16/20 Surgeon: Minh Loco Pathology: none sent Condition: stable Disposition: PACU Description of Procedure: PREOP DIAGNOSIS: Rectal pain status post Tarlov cyst surgery POSTOP DIAGNOSIS: Same as above PROCEDURE: Caudal epidural steroid injection and epidurogram under fluoroscopic guidance ANESTHESIA: Local with 1% lidocaine; IV moderate conscious sedation with fentanyl and Versed EBL: Minimal. PROCEDURE INDICATION: The patient with post-laminectomy syndrome with low back pain and radiculopathy radiating down in both legs, here for a caudal epidural steroid injection with epidurolysis. PROCEDURE DESCRIPTION: The patient was seen in the preoperative holding area consent was obtained then he was brought into the procedure room and placed in prone position. Skin was prepped with ChloraPrep and draped in a sterile manner. Lidocaine 1% was used to numb the skin up at the target point that was chosen as follows: The lateral view of fluoroscopy was used to identify the sacral hiatus and then after localizing the skin with lidocaine 1% I used 18- gauge epidural needle with a plastic sheath to go through the sacral hiatus and into the sacral canal and then injected 1 mL of Omnipaque for verification of needle tip position. After that the metal core of the needle was taken out and the plastic sheath was kept in the sacral canal. Then Racz catheter was introduced through the plastic sheath and into the epidural space at the sacral canal using the AP view of fluoroscopy up to mid sacral level, the catheter would not thread higher than the mid sacral area. I then injected 20 mg of Decadron +2 MLS of Ropivacaine 0.5% +2 MLS of preservative-free normal saline to a total volume of 6 MLS in the epidural space. Patient tolerated procedure well. A copy of the needle placement x-ray was saved to the C-arm machine. COMPLICATIONS: None. DISPOSITION / PLANS: The patient was placed in a supine position and transferred to the recovery area in a stable condition for observation and was discharged from the recovery room after meeting discharge criteria. Home discharge instructions given to the patient by the staff.
[2020-12-16 10:47] VITALS: BP 134/80; PULSE 69; RESP 20
--- NOTE | 2020-12-16 13:19 | FL ---
Fluoroscopy HISTORY: Pain 5 seconds fluoroscopy time supplied to the referring clinician. 2 intraoperative C-arm images docume nt the procedure. See dictated report from anesthesia.
== END 2020-12-16 10:33 | disposition home or self-care (01) ==
LOC: ORPAIN 08:54
PROVIDERS: ATTEND Anesthesiology
DX: M96.1 Postlaminectomy syndrome, not elsewhere classified (principal); K62.89 Other specified diseases of anus and rectum; Z98.890 Other specified postprocedural states; Z78.0 Asymptomatic menopausal state; Z79.891 Long term (current) use of opiate analgesic
CPT/HCPCS: 62323; J2250; J1100; J3010; Q9966; J2795; C1894; 99152

== ENCOUNTER → 2021-05-27 | Outpatient (CLI) | payer OTHER ==
[2021-05-27 16:58] LABS: Basophils # (A) 0.06 X 10*3/uL (0.00-0.10); Basophils % (A) 0.8 %; Eosinophils # (A) 0.13 X 10*3/uL (0.04-0.35); Eosinophils % (A) 1.7 %; HCT 42.7 % (37.2-46.3); HGB 13.6 g/dL (12.0-15.0); Lymphocytes # (A) 2.69 X 10*3/uL (0.90-5.00); Lymphocytes % (A) 34.7 %; MCH 28.1 pg (27.0-32.0); MCHC 31.9 g/dL (32.0-37.0); MCV 88.2 fL (80.0-97.0); Mean Platelet Volume 10.9 fL (9.5-12.2); Monocytes # (A) 0.52 X 10*3/uL (0.20-1.00); Monocytes % (A) 6.7 %; Neutrophils # (A) 4.33 X 10*3/uL (1.80-7.70); Neutrophils % (A) 55.8 %; Platelet Count 333 X 10*3/uL (140-440); RBC 4.84 X 10*6/uL (4.10-5.20); RDW 13.2 % (11.5-14.5); WBC 7.75 X 10*3/uL (4.50-10.00)
[2021-05-27 19:15] LABS: African American GFR (CKD) 112.3 (60.0-200.0); Albumin 5.2 g/dL (3.8-4.9); Albumin/Globulin Ratio 2.33 (1.60-3.17); Anion Gap 11.7 mmol/L (4.00-12.00); BUN/Creat Ratio 21.93 Ratio (12.00-20.00); Blood Urea Nitrogen 15.7 mg/dL (9.0-27.0); Calcium 9.8 mg/dL (8.7-10.3); Carbon Dioxide 28.7 mmol/L (21.6-31.8); Chol/HDL Ratio 2.84 Ratio; Globulin 2.2 g/dL (1.6-3.3); HDL Cholesterol 88.5 mg/dL (40.00-60.00); LDL Cholesterol,Calculated 142.8 mg/dL (0.0-131.0); Non-African American GFR(CKD) 96.9 (60.0-200.0); Potassium 3.8 mmol/L (3.5-5.5); T4, Free (Free Thyroxine) 1.05 ng/dL (0.800-1.800); Total Bilirubin 0.5 mg/dL (0.30-1.20); Total Protein 7.5 g/dL (6.2-8.2); Triglycerides 98.3 mg/dL (0.00-149.00); VLDL Calculation 19.66 mg/dL (5.00-40.00)
== END | disposition home or self-care (01) ==
LOC: LABWHC1 09:09
PROVIDERS: ATTEND Internal Medicine Critical Care Medicine
DX: Z00.00 Encounter for general adult medical examination without abnormal findings (principal); E78.00 Pure hypercholesterolemia, unspecified; G89.29 Other chronic pain; J45.909 Unspecified asthma, uncomplicated; F41.9 Anxiety disorder, unspecified; K21.9 Gastro-esophageal reflux disease without esophagitis; I26.99 Other pulmonary embolism without acute cor pulmonale
CPT/HCPCS: 36415; 80053; 80061; 82306; 83036; 84439; 84443; 85025

== ENCOUNTER → 2021-06-03 | Outpatient (CLI) | payer OTHER ==
[2021-06-03 12:34] VITALS: BP 153/98; PULSE 72; RESP 18; TEMP 98.5
--- NOTE | 2021-06-04 20:23 | P.PN ---
Subjective Progress Note Date: 06/04/21 This is an old visit for this follow up visit for this 50 years old female, with a chronic history of severe low back pain, she is diagnosed with lumbar degenerative disc disease, lumbar spondylosis with lumbar facet arthropathy ,and also patient had Talov cysts at the sacral spine, status post surgical resection of the time of cyst she continued to have coccydynia, and low back pain with radiation to the lower extremities, patient denies any motor or sensory deficit, she denies any fever or night sweats, and there is no change in the bowel movement or urination, she is currently on fentanyl patch 25 g every 72 hours, and she is on Percocet 7.5/325 every 6 hours ( previously she was on fentanyl patch 100 g ) , she denies any side effect of the medication, she denies any excessive drowsiness or sleepiness, patient reported that she continued to have severe low back pain and the bilateral buttock pain , the pain increased when she is standing in the sitting position , also pain increased with the sitting position , patient complaining severe pain in the bowel m ovement, also she have severe dyspareunia, patient tried physical therapy without benefit , she tried medication management without any significant benefit and she had surgical interventions without any benefit Physical Examinations : -Constitutiona : Cooperative , not in acute distress . -HEENT : nech : supple , no Lymphadenopathy , normal thyroid size . : eyes : no ptosis , no icterus, no photophobia . - neurologic : Cranial nerve II to XII intact , no focal neurological deffecit . -psychatric : alert , oriented X 3 , appropriate affect , intact judgment and insight . -Lymphatic : no Lymphadenopathy . - musculoskeltal : Lumber spine moter stegnth lower extremities ,thigh and legs 5/5 Right side , 5/5 Left side deep tendon reflexes : normal Knee Jerk , normal ankle Jerk lumber facet Loading Test =positive Right , positive Left Range of motion of the lumbar spine Flexion 30 degrees, extension 10 degrees strait leg raising test = positive at 60 degree Fabere test= negative bilaterally. tenderness over the Sacroiliac joint on the Right , and Left sides Tenderness over the coccyx area Results MRI of the lumbar spine= multilevel lumbar degenerative disc disease and multilevel lumbar facet degeneration Computed tomography scan of the lumbar spine done in September 2017= L3 4 L4 5 and L5-S1 lumbar bulging disc disease, and Tarlov cyst in the sacral area Assessment and plan=1-chronic pain syndrome . 2-lumbar radiculopy. 3-coccyodynia 4-lumbar bulging disc disease. 5-lumbar spondylosis with lumbar facet arthropathy Patient will be good candidate to have caudal epidural steroid injections under fluoroscopy guidance patient should continue her current medication Percocet 7.5/325 every 6 hours when necessary and fentanyl patch 25 g every 72 hours - PQRS measures = - Patient's medications are documented in the chart. -Tobacco use is negative and counseling.Given. -Patient's has not received pneumococcal vaccine. -Advanced care planning discussed, patient not eligible. -Opiate contract not signed. -Pain positive and follow-up visit/procedure is scheduled. -Patient's blood pressure measured [ 153/98 ] , and documented in the record ,and patient will follow up with the primary care. -Patient's weight was measured and body mass index [ 25.8] above the, normal limits and counseling was done. and patient instructed to follow-up with the primary care physician. -Patient was not identified as an unhealthy alcohol user Objective - Vital Signs Vital signs: Vital Signs Temp 98.5 F 06/03/21 12:25 Pulse 72 06/03/21 12:25 Resp 18 06/03/21 12:25 BP 153/98 06/03/21 12:25 Pulse Ox 100 06/03/21 12:25
== END ==
LOC: PNWHC3 12:14
PROVIDERS: ATTEND Student in an Organized Health Care Education/Training Program
DX: M47.26 Other spondylosis with radiculopathy, lumbar region (principal); M51.16 Intervertebral disc disorders with radiculopathy, lumbar region; M53.3 Sacrococcygeal disorders, not elsewhere classified; G89.4 Chronic pain syndrome
CPT/HCPCS: 99211

== ENCOUNTER 2021-06-30 06:33 | Day surgery (SDC) | payer OTHER ==
[2021-06-30] MEDS ORDERED: LACTATED RINGERS 1,000 ML IV ONE (07:10)
[2021-06-30 07:13] VITALS: TEMP 97.5
[2021-06-30] MEDS ORDERED: IOPAMIDOL M200 10 ML VIAL ONE (07:24)
[2021-06-30] MEDS ORDERED: methylPREDNISolone ACETATE 40 MG/ML 1 ML VIAL ONE (07:24)
[2021-06-30] MEDS ORDERED: MIDAZOLAM 2 MG/2 ML VIAL ONE (07:24)
[2021-06-30] MEDS ORDERED: SODIUM CHLORIDE 0.9% (PF) 10 ML VIAL ONE (07:24)
[2021-06-30] MEDS ORDERED: fentaNYL (PF) 50 MCG/ML 2 ML AMP ONE (07:24)
--- NOTE | 2021-06-30 07:46 | P.PCN ---
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 3-coccyodynia 4-lumbar bulging disc disease. 5-lumbar spondylosis with lumbar facet arthropathy . POSTOP DIAGNOSIS:Same as pre op Diagnosis PROCEDURE: 1-Caudal epidural steroid injection with epidurolysis and epidurogram under fluoroscopic guidance. (Fluoroscopy images available in the radiology Department ) 2-caudal epidurogram. ANESTHESIA: Local with 1% lidocaine 3 ml ,and moderate sedation, with Versed 3 mg and fentanyl 150 g. EBL: Minimal. PROCEDURE INDICATION: The patient with post-laminectomy syndrome with low back pain and radiculopathy radiating down in both legs, here for a caudal epidural steroid injection with epidurolysis. PROCEDURE DESCRIPTION: The patient was seen and identified in the preoperative area. Risks, benefits, complications, and alternatives were discussed with the patient. The patient agreed to proceed with the procedure and signed the consent. IV was started, and vital signs were stable. Patient was taken to the OR and time out was completed. The patient was placed in the prone position on procedure table and a pillow was placed under the abdomen to reduce lumbar lordosis. The lumbosacral area was prepped and draped in the usual sterile fashion. Vital signs were closely monitored during the procedure. lateral view and the anterior-posterior plates of the sacrum were identified with infiltration of the area overlying the sacral hiatus with 1% lidocaine .A 17 gauge RK epidural needle was used to advance through the sacral hiatus into the caudal epidural space. Omnipaque 180 dye. 2cc was injected and the position of the needle was verified to be in the midline. A Racz catheter was introduced into the epidural space and was advanced towards the L5-S1 interspace under direct fluoroscopic guidance. Multiple passes were made with the catheter for lysis of epidural adhesions. Depo-Medrol 80 mg with 3ml of preservative free Lidocaine 1% and 5 ml of preservative free normal saline was injected slowly. Additional spread was seen to L4 under fluoroscopy. The needle and the catheter were withdrawn intact. EPIDUROGRAM: Omnipaque 180 mg dye 2 ml was injected with spread of the dye into the caudal epidural space and with spread cutoff at L5 prior to epidurolysis. Post epidurolysis dye 2 ml was injected and spread was seen to L4.There was further spread of the solution together with the dye above the L4 COMPLICATIONS: None. DISPOSITION / PLANS: The patient was placed in a supine position and transferred to the recovery area in a stable condition for observation and was discharged from the recovery room after meeting discharge criteria. Home discharge instructions given to the patient by the staff. The patient was reexamined prior to discharge. The patient will schedule a follow up in the clinic in 2-4 weeks.
[2021-06-30 07:51] VITALS: RESP 16
[2021-06-30] MEDS ORDERED: IV FLUID CONTINUATION 600 ML IV ONE (07:52)
--- NOTE | 2021-06-30 08:40 | FL ---
EXAMINATION TYPE: FL guided pain mgmt statistic DATE OF EXAM: 06/30/2021 HISTORY: Fluoroscopy time 5 seconds of fluoroscopy provided. IMPRESSION: 1. Fluoroscopy time.
[2021-06-30 08:49] VITALS: BP 106/70; PULSE 68
== END 2021-06-30 08:35 | disposition home or self-care (01) ==
LOC: ORPAIN 06:33
PROVIDERS: ATTEND Specialist
DX: M53.3 Sacrococcygeal disorders, not elsewhere classified (principal); M47.816 Spondylosis without myelopathy or radiculopathy, lumbar region
CPT/HCPCS: 62264; J2250; J1030; J3010; Q9966; C1894; 99152

== ENCOUNTER 2021-09-08 08:33 | Day surgery (SDC) | payer OTHER ==
[2021-09-07 09:24] VITALS: BMI 23.7
[2021-09-08 09:05] VITALS: TEMP 98.5
[2021-09-08] MEDS ORDERED: methylPREDNISolone ACETATE 40 MG/ML 1 ML VIAL ONE (09:18)
[2021-09-08] MEDS ORDERED: fentaNYL (PF) 50 MCG/ML 2 ML AMP ONE (09:18)
[2021-09-08] MEDS ORDERED: MIDAZOLAM 2 MG/2 ML VIAL ONE (09:18)
[2021-09-08] MEDS ORDERED: IOPAMIDOL M200 10 ML VIAL ONE (09:18)
[2021-09-08] MEDS ORDERED: SODIUM CHLORIDE 0.9% (PF) 10 ML VIAL ONE (09:18)
--- NOTE | 2021-09-08 09:36 | P.PCN ---
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 3-coccyodynia 4-lumbar bulging disc disease. 5-lumbar spondylosis with lumbar facet arthropathy . POSTOPERATIVE DIAGNOSIS:Same Pre-Op Diagnosis PROCEDURE: 1. Caudal epidural steroid injection under fluoroscopic guidance. (Fluoroscopy images available in the radiology department ) 2. Caudal epidurogram ANESTHESIA: Local with 1% lidocaine; 5ml for subcutaneous infiltrations and IV versed 3 mg ,and fentanyl 150 mcg EBL: None. PROCEDURE INDICATION: The patient with neuropathic pain radiating distally returns for caudal epidural steroid injection. PROCEDURE DESCRIPTION: The patient was seen and identified in the preoperative area. Risks, benefits, complications, and alternatives were discussed with the patient. The patient agreed to proceed with the procedure and signed the consent. IV was started, and vital signs were stable. Patient was taken to the OR and time out was completed. The patient was placed in the prone position on procedure table and a pillow was placed under the abdomen to reduce lumbar lordosis. The lumbosacral area was prepped and draped in the usual sterile fashion. Critical pause was taken. Vital signs were closely monitored during the procedure. Using lateral fluoroscopy the anterior-posterior plates of the sacrum were identified and the skin and deeper tissues corresponding into sacrococcygeal l igament were anesthetized using approximately 3 mL of 1% lidocaine. Then under fluoroscopy, a 3-1/2-inch 20-gauge Tuohy epidural needle was guided through the sacrococcygeal ligament, and into the epidural space. After negative aspiration, a 2 mL of Isovue 200 contrast dye was injected with excellent epidurogram. Again after negative aspiration for CSF, blood, and with no paresthesias, then Depo-Medrol 80mg, 2ml of 1% preservative free Lidocaine with 6 ml of preservative free normal saline(total of 10ml)solution was injected with washout of epidurogram. Needle was withdrawn intact. Skin was cleansed, and bandage was applied. COMPLICATIONS: None DISPOSITION / PLANS: The patient was placed in a supine position and transferred to the recovery area in a stable condition for observation and was discharged from the recovery room after meeting discharge criteria. Home discharge instructions given to the patient by the staff. The patient was reexamined prior to discharge. The patient will schedule a follow up in the clinic in 2-4 weeks.
--- NOTE | 2021-09-08 10:00 | FL ---
EXAMINATION TYPE: FL guided pain mgmt statistic DATE OF EXAM: 09/08/2021 HISTORY: Fluoroscopy time 4 seconds of fluoroscopy provided. IMPRESSION: 1. Fluoroscopy time.
[2021-09-08] MEDS ORDERED: IV FLUID CONTINUATION 1,000 ML IV ONE (10:32)
[2021-09-08 10:40] VITALS: RESP 16
[2021-09-08 10:41] VITALS: BP 140/69; PULSE 88
== END 2021-09-08 10:30 | disposition home or self-care (01) ==
LOC: ORPAIN 08:33
PROVIDERS: ATTEND Specialist
DX: M96.1 Postlaminectomy syndrome, not elsewhere classified (principal); M53.3 Sacrococcygeal disorders, not elsewhere classified; M47.816 Spondylosis without myelopathy or radiculopathy, lumbar region; Z78.0 Asymptomatic menopausal state; Z79.891 Long term (current) use of opiate analgesic
CPT/HCPCS: 62323; J2250; J1030; J3010; Q9966; 99152

== ENCOUNTER → 2021-10-12 | Outpatient (CLI) | payer OTHER ==
[2021-10-12 10:11] VITALS: BP 125/81; PULSE 72; RESP 18; TEMP 99
--- NOTE | 2021-10-12 10:22 | P.PN ---
Subjective Progress Note Date: 10/12/21 Principal diagnosis: A 51 yr old female with a history of severe and chronic low back pain secondary to lumbar degenerative disc diseases and lumbar spondylosis with facet arthropathy presents today for evaluation status post caudal AN. Patient states she expressed 50% pain relief status post procedure, but she experienced a lot more pain relief with the caudal AN with lysis completed on 06/21. Pain level is really at 7 out of 10 in intensity, sharp, shooting in the tailbone aspects with radiation of pain to the buttock bilaterally. Pain is provoked by sitting upright for 10 minutes, standing for 10 minutes or walking for 5 minutes. It is also provoked with bending, lifting. Pain is alleviated with repositioning while sitting or standing, medications, injections, ice, heat but was discontinued due to directions on fentanyl medication, physical therapy which was discontinued as the pain was not considered muscular in origin, massage therapy on a weekly basis rest. Patient states she was very pleased with the caudal AN with lysis as she was pain-free from to not needing to use her fentanyl pain patches during that time. Interventional pain procedures completed include Caudal AN x 3. Patient is currently on Fentanyl 50mcg patch Q72hr, Oxycodone 7.5/325mg prn. Patient denies any side effects of the medication(s), denies excessive drowsiness or sleepiness, denies suicidal ideation and reports that the current pain medication is helping to control the pain and improve activities of daily living. Patient denies any motor or sensory deficits. Patient denies any fever or night sweats, denies any change in the bowel movements or urination. Physical Examination: -Constitutional: Cooperative. Not in acute distress . -HEENT: Neck is supple. No lymphadenopathy. No thyromegaly. Normal thyroid size. Eyes: No ptosis , no icterus, no photophobia. ENT: No auditory deficits. Normal oropharynx. No Thrush. - Respiratory: Chest clear to auscultations bilaterally. No wheezing. No rho nchi. - Cardiovascular: Regular rate and rhythm. S1 / S2 , no S3 , no S4. - Gastrointestinal: Abdomen soft no tenderness. Bowel sounds positive in all four quadrants. No organomegaly. - Genitourinary: Deferred. - Neurologic: Cranial nerve II to XII intact. No focal neurological deficits. - Psychatric: Alert & oriented x 3. Matching mood & appropriate affect. Judgment and insight intact. - Lymphatic: No Lymphadenopathy. - Musculoskeletal: Cervical spine: Muscle bulk/ tone/ strength in the bilateral upper extremities normal. Facet loading test cervical area positive. Lumbar spine: Motor bulk/ tone/ strength lower extremities , thigh and legs : 5/5 Deep tendon reflexes : Normal Knee Jerk. Normal Ankle Jerk . Vertebral body tenderness to palpation over Lumbar Facet Loading Test positive Straight Leg Raise: positive at 30 degrees right side/ left side Gaenslen's Test positive Sacral spine : Severe tenderness over the Sacroiliac joint: right side / left side Range of motion: Flexion of the lumbar spine <60 degrees Range of motion: Extension of the lumbar spine 0 degrees Gaenslen's Test positive Judson test: positive right side / left side Assessment and plan: Chronic low back pain secondary to lumbar degenerative disc disease , lumbar spondylosis with facet arthropathy without myelopathy Recommendation of bilateral SI joint injection #1. Risks, benefits of procedure discussed and patient verbalized understanding. Denies anticoagulants use. Denies medical history of diabetes mellitus. All patient questions answered MAPS reviewed and it was appropriate. I have spent 31 minutes on patient care today. Dr Levin was available by phone for the evaluation of this patient. The time was used to review the medical records including relevant urine studies and Prescription history (MAPs), review of the available imaging, evaluation and examination of the patient, coordination of care with the medical staff and if applicable referring physicians, as well as creation of the medical record Objective - Vital Signs Vital signs: Vital Signs Temp 99.0 F 10/12/21 09:50 Pulse 72 10/12/21 09:50 Resp 18 10/12/21 09:50 BP 125/81 10/12/21 09:50 Pulse Ox 100 10/12/21 09:50 PQRS Measure Charge Sheet Mode of Arrival: Ambulatory - Pain Location Sacrum Non-Pharmacological Interventions: Ice, Position/Reposition Pharmacological Interventions: Epidural, PRN Medication, Topical Medication PQRS Narrative: Smoking Status Never smoker Blood Pressure 125/81 Pain Intensity [Sacrum] 7 Scale Used Numeric (1 - 10) Hx Alcohol Use (MH) No Home Medications: Ambulatory Orders Simvastatin 20 mg PO HS 10/29/14 Budesonide/Formoterol Fumarate [Symbicort 160-4.5 Mcg Inhaler] 2 puff INHALATION RT-DAILY PRN 03/20/16 oxyCODONE-APAP 7.5-325MG [Percocet 7.5-325 mg] 1 tab PO Q6HR PRN 04/27/18 Fluticasone Nasal Bruno [Flonase Nasal Bruno] 2 spr EA NOSTRIL DAILY PRN 08/14/18 Fexofenadine HCl [Yumiko Allergy] 180 mg PO DAILY PRN 04/08/19 Sertraline [Zoloft] 50 mg PO DAILY 09/30/20 fentaNYL 25MCG/HR PATCH [Duragesic 25MCG/HR] 50 mcg TRANSDERM Q72H 06/02/21
== END | disposition home or self-care (01) ==
LOC: PNWHC3 09:27
PROVIDERS: ATTEND Physician Assistant Medical
DX: M51.36 Other intervertebral disc degeneration, lumbar region (principal); M46.96 Unspecified inflammatory spondylopathy, lumbar region; M47.896 Other spondylosis, lumbar region
CPT/HCPCS: 99211

== ENCOUNTER 2021-10-27 15:44 | Emergency (ER) | payer OTHER ==
[2021-10-27 16:26] VITALS: BP 155/91; PULSE 89; RESP 18; TEMP 97.8
== END 2021-10-27 18:12 | disposition left against medical advice (07) ==
LOC: EC 15:44
DX: Z53.21 Procedure and treatment not carried out due to patient leaving prior to being seen by health care provider (principal)
CPT/HCPCS: 93005

== ENCOUNTER → 2021-11-25 | Outpatient (CLI) | payer OTHER ==
--- NOTE | 2021-11-26 13:16 | MM ---
Reason for exam: screening (asymptomatic). Last mammogram was performed 1 year and 1 month ago. History: Patient is postmenopausal and is nulliparous. Benign excisional biopsy of the left breast, August 2019. Physical Findings: A clinical breast exam by your physician is recommended on an annual basis and results should be correlated with mammographic findings. MG 3D Screening Mammo W/Cad Bilateral CC and MLO view(s) were taken. XCCL view(s) were taken of the right breast. Prior study comparison: August 29, 2019, left breast US breast LT. June 12, 2019, mammogram, performed at [facility]. The breast tissue is extremely dense which could obscure a lesion on mammography. There are benign appearing round calcifications bilaterally. There is no discrete abnormality. ASSESSMENT: Benign, BI-RAD 2 RECOMMENDATION: Routine screening mammogram of both breasts in 1 year.
== END | disposition home or self-care (01) ==
LOC: RADMAMWWP 13:53
PROVIDERS: ATTEND Surgery
DX: Z12.31 Encounter for screening mammogram for malignant neoplasm of breast (principal)
CPT/HCPCS: 77063; 77067

== ENCOUNTER → 2021-12-12 | Outpatient (CLI) | payer OTHER ==
--- NOTE | 2021-12-12 16:06 | MR ---
EXAMINATION TYPE: MR shoulder RT wo con DATE OF EXAM: 12/12/2021 COMPARISON: None HISTORY: Rt shoulder pain into upper arm, decreased range of motion Multiplanar multiecho imaging of the right shoulder without contrast. There is thickening and increased signal in the supraspinatus tendon at the greater tuberosity. There is no retraction. There is no definite full-thickness tear. There is some mild edema in the greater tuberosity of the humerus. The biceps tendon is intact. Subscapularis tendon is intact. There is mild subdeltoid effusion. Gleno id solomon appear intact. No fracture seen. There is mild spurring at the AC joint. IMPRESSION: Thickening and increased signal consistent with tendinitis in the supraspinatus tendon. Subdeltoid ef fusion consistent with bursitis. No definite full-thickness tear.
== END | disposition home or self-care (01) ==
LOC: RADMRIMAIN 11:25
PROVIDERS: ATTEND Internal Medicine Critical Care Medicine
DX: M25.511 Pain in right shoulder (principal)

== ENCOUNTER 2021-12-24 08:25 | Day surgery (SDC) | payer OTHER ==
[2021-12-24] MEDS ORDERED: LACTATED RINGERS 1,000 ML IV SCH (08:53)
[2021-12-24] MEDS ORDERED: LIDOCAINE 1% (10MG/ML) FOR IV START INTRADERMA PRN (08:53)
[2021-12-24 09:23] VITALS: BP 137/68; PULSE 73; RESP 16; TEMP 98.8
--- NOTE | 2021-12-24 14:58 | P.PN ---
Subjective Progress Note Date: 12/24/21 This is 51 yr old female with a history of severe and chronic low back pain secondary to lumbar degenerative disc diseases and lumbar spondylosis with facet arthropathy , previously we have done caudal AN. Patient states she expressed 50% pain relief status post procedure, but she experienced a lot more pain relief with the caudal AN with lysis completed on 06/21. Patient reported that the increase intensity of her pain over the last few weeks, and she is having severe pain with the intercourse, also she is experiencing severe pain with the bowel movement Pain , the pain intensity interfere with the quality of life level is really at 7 out of 10 in intensity, sharp, shooting in the tailbone . Pain is provoked by sitting upright for 10 minutes, standing for 10 minutes or walking for 5 minutes. It is also provoked with bending, lifting. Pain is alleviated with repositioning while sitting or standing, medications, injections, ice, heat but was discontinued due to directions on fentanyl medication, physical therapy which was discontinued as the pain was not considered muscular in origin, massage therapy on a weekly basis rest. Patient states she was very pleased with the caudal AN with lysis as she was pain-free from to not needing to use her fentanyl pain patches during that time. Interventional pain procedures completed include Caudal AN x 3. Patient is currently on Fentanyl 50mcg patch Q72hr, Oxycodone 7.5/325mg prn. Patient denies any side effects of the medication(s), denies excessive drowsiness or sleepiness, denies suicidal ideation and reports that the current pain medication is helping to control the pain and improve activities of daily living. Patient denies any motor or sensory deficits. Patient denies any fever or night sweats, denies any change in the bowel movements or urination. Physical Examination: -Constitutional: Cooperative. Not in acute distress . -HEENT: Neck is supple. No lymphadenopathy. No thyromegaly. Normal thyroid size. Eyes: No ptosis , no icterus, no photophobia. ENT: No auditory deficits. Normal oropharynx. No Thrush. - Respiratory: Chest clear to auscultations bilaterally. No wheezing. No rhonchi. - Cardiovascular: Regular rate and rhythm. S1 / S2 , no S3 , no S4. - Gastrointestinal: Abdomen soft no tenderness. Bowel sounds positive in all four quadrants. No organomegaly. - Genitourinary: Deferred. - Neurologic: Cranial nerve II to XII intact. No focal neurological deficits. - Psychatric: Alert & oriented x 3. Matching mood & appropriate affect. Judgment and insight intact. - Lymphatic: No Lymphadenopathy. - Musculoskeletal: Cervical spine: Muscle bulk/ tone/ strength in the bilateral upper extremities normal. Facet loading test cervical area positive. Lumbar spine: Motor bulk/ tone/ strength lower extremities , thigh and legs : 5/5 Deep tendon reflexes : Normal Knee Jerk. Normal Ankle Jerk . Vertebral body tenderness to palpation over Lumbar Facet Loading Test positive Straight Leg Raise: positive at 30 degrees right side/ left side Gaenslen's Test positive Sacral spine : Severe tenderness over the coccyx area and over the sacrococcygeal ligament Range of motion: Flexion of the lumbar spine <60 degrees Range of motion: Extension of the lumbar spine 0 degrees Gaenslen's Test positive Judson test: positive right side / left side Assessment and plan: Chronic low back pain secondary to lumbar degenerative disc disease , lumbar spondylosis with facet arthropathy without myelopathy Recommendation of sacrococcygeal ligament injection. Risks, benefits of procedure discussed and patient verbalized understanding. Denies anticoagulants use. All patient questions answered Note= the patient was scheduled to have bilateral sacroiliac joint steroid injection, but today during the examination patient had no tenderness over the sacroiliac joint, and she has severe tenderness over the sacrococcygeal ligament, And patient need prior authorization for the sacrococcygeal ligament injection, and this reason patient will be rescheduled for the procedure Objective - Vital Signs Vital signs: Vital Signs Temp 98.8 F 12/24/21 09:22 Pulse 73 12/24/21 09:22 Resp 16 12/24/21 09:22 BP 137/68 12/24/21 09:22 Pulse Ox 100 12/24/21 09:22 FiO2 Intake & Output 12/23/21 12/24/21 12/24/21 18:59 06:59 18:59 Weight 62 kg
== END 2021-12-24 09:37 | disposition home or self-care (01) ==
LOC: ORPAIN 08:25
PROVIDERS: ATTEND Specialist
DX: G89.29 Other chronic pain (principal); Z53.9 Procedure and treatment not carried out, unspecified reason; M47.816 Spondylosis without myelopathy or radiculopathy, lumbar region; M51.36 Other intervertebral disc degeneration, lumbar region

== ENCOUNTER 2021-12-29 12:24 | Day surgery (SDC) | payer OTHER ==
[2021-12-29 12:58] VITALS: TEMP 98
[2021-12-29] MEDS ORDERED: LACTATED RINGERS 1,000 ML IV ONE (13:15)
[2021-12-29] MEDS ORDERED: methylPREDNISolone ACETATE 40 MG/ML 1 ML VIAL ONE (13:34)
[2021-12-29] MEDS ORDERED: fentaNYL (PF) 50 MCG/ML 2 ML AMP ONE (13:34)
[2021-12-29] MEDS ORDERED: MIDAZOLAM 2 MG/2 ML VIAL ONE (13:34)
[2021-12-29] MEDS ORDERED: ROPIVACAINE 5MG/ML 20ML VIAL ONE (13:34)
--- NOTE | 2021-12-29 13:51 | P.PCN ---
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 3-coccyodynia 4-lumbar bulging disc disease. 5-lumbar spondylosis with lumbar facet arthropathy . 6-sacrococcygeal ligament neuralgia POSTOPERATIVE DIAGNOSIS:Same Pre-Op Diagnosis PROCEDURE: 1. Sacrococcygeal ligament steroid injection under fluoroscopy guidance (Fluoroscopy images available in the radiology department ) ANESTHESIA: Moderate sedation with versed 2 mg ,and fentanyl 100 mcg EBL: None. PROCEDURE INDICATION: The patient with neuropathic pain radiating distally returns for caudal epidural steroid injection. PROCEDURE DESCRIPTION: The patient was seen and identified in the preoperative area. Risks, benefits, complications, and alternatives were discussed with the patient. The patient agreed to proceed with the procedure and signed the consent. IV was started, and vital signs were stable. Patient was taken to the OR and time out was completed. The patient was placed in the prone position on procedure table and a pillow was placed under the abdomen to reduce lumbar lordosis. The lumbosacral area was prepped and draped in the usual sterile fashion. Critical pause was taken. Vital signs were closely monitored during the procedure. Using lateral fluoroscopy the anterior-posterior plates of the sacrum were identified and the skin and deeper tissues corresponding into sacrococcygeal ligament were anesthetized using approximately 3 mL of 1% lidocaine. Then under fluoroscopy, a 3-1/2-inch 22-gauge Quincke Spinal needle was guided through the sacrococcygeal ligament, and into the epidural space. After negative aspiration, then after that 5 ML of ropivacaine 0.5% mixed with 80 mg of Depo-Medrol injected and the sacrococcygeal ligament after negative aspiration, patient tolerated the procedure well without any complications COMPLICATIONS: None DISPOSITION / PLANS: The patient was placed in a supine position and transferred to the recovery area in a stable condition for observation and was discharged from the recovery room after meeting discharge criteria. Home discharge instructions given to the patient by the staff. The patient was reexamined prior to discharge. The patient will schedule a follow up in the clinic in 2-4 weeks.
[2021-12-29] MEDS ORDERED: IV FLUID CONTINUATION 1,000 ML IV ONE (13:52)
[2021-12-29 13:55] VITALS: RESP 18
[2021-12-29 14:12] VITALS: BP 100/50; PULSE 98
--- NOTE | 2021-12-29 14:48 | FL ---
Fluoroscopy HISTORY: Pain 6 seconds fluoroscopy time supplied to the referring clinician. 2 intraoperative C-arm images docume nt the procedure. See dictated report from anesthesia.
== END 2021-12-29 14:26 | disposition home or self-care (01) ==
LOC: ORPAIN 12:24
PROVIDERS: ATTEND Specialist
DX: M96.1 Postlaminectomy syndrome, not elsewhere classified (principal); M47.26 Other spondylosis with radiculopathy, lumbar region; M51.16 Intervertebral disc disorders with radiculopathy, lumbar region; M53.3 Sacrococcygeal disorders, not elsewhere classified; M79.2 Neuralgia and neuritis, unspecified
CPT/HCPCS: 77002; 20550; J2250; J1030; J1040; J3010; J2795; 99152

== ENCOUNTER → 2022-01-18 | Outpatient (CLI) | payer OTHER ==
--- NOTE | 2022-01-18 12:09 | P.PAINPG ---
PQRS Measure Charge Sheet Comment: A 51 yr old female with a history of severe and chronic low back pain secondary to lumbar degenerative disc diseases and lumbar spondylosis with facet arthropathy presents today for an evaluation s/p sacrococcygeal injection. PT received 0% pain relief s/p procedure. Pain level is currently at 9/10 in inten sity, dull and achy in the lower tailbone area starting 10 yrs ago but exceptionally worse since October 2021. Pain is dull/ achy/ sharp/ shooting towards . Pain is provoked by sitting, driving and stress. Pain is alleviated with very little with PT & chiropractic treatments, alternating heat & ice, medications, laying supine on the side. Interventional pain procedures completed include Caudal AN w lysis Patient is currently on Fentanyl patches and Percocet Patient denies any side effects of the medication(s), denies excessive drowsiness or sleepiness, denies suicidal ideation and reports that the current pain medication is helping to control the pain and improve activities of daily living. Patient denies any motor or sensory deficits. Patient denies any fever or night sweats, denies any change in the bowel movements or urination. Physical Examination: -Constitutional: Cooperative. Not in acute distress . -HEENT: Neck is supple. No lymphadenopathy. No thyromegaly. Normal thyroid size. Eyes: No ptosis , no icterus, no photophobia. ENT: No auditory deficits. Normal oropharynx. No Thrush. - Respiratory: Chest clear to auscultations bilaterally. No wheezing. No rhonchi. - Cardiovascular: Regular rate and rhythm. S1 / S2 , no S3 , no S4. - Gastrointestinal: Abdomen soft no tenderness. Bowel sounds positive in all four quadrants. No organomegaly. - Genitourinary: Deferred. - Neurologic: Cranial nerve II to XII intact. No focal neurological deficits. - Psychatric: Alert & oriented x 3. Matching mood & appropriate affect. J udgment and insight intact. - Lymphatic: No Lymphadenopathy. - Musculoskeletal: Cervical spine: Muscle bulk/ tone/ strength in the bilateral upper extremities normal Vertebral body tenderness to palpation over Facet loading test positive Thoracic spine Muscle bulk / tone/ strength in the bilateral paraspinal muscles normal Vertebral body tender to palpation over Facet loading test positive Lumbar spine: Motor bulk/ tone/ strength lower extremities , thigh and legs : 5/5 Deep tendon reflexes : Normal Knee Jerk. Normal Ankle Jerk . Vertebral body tenderness to palpation over L5 Lumbar Facet Loading Test positive Straight Leg Raise: positive at 30 degrees right side/ left side Gaenslen's Test positive Sacral spine : Severe tenderness over the Sacroiliac joint: right side / left side Range of motion: Flexion of the lumbar spine <60 degrees Range of motion: Extension of the lumbar spine <20 degrees Gaenslen's Test positive L>R Dylan's Test positive Judson test: positive right side / left side Thigh Thrust Test Sacral Thrust Test Assessment and plan: Chronic low back pain secondary to lumbar degenerative disc disease , lumbar spondylosis with facet arthropathy without myelopathy Recommendation of Caudal AN. May need a series of injections, up to 3 within 6 mo period, for optimal pain relief. Risks, benefits of procedure discussed and pt verbalized understanding. Denies anticoagulant use or medical history of diabetes. All patient questions answered MAPS reviewed and it was appropriate. I have spent 31 minutes on patient care today. Dr Levin was available by phone for the evaluation of this patient. The time was used to review the medical records including relevant urine studies and Prescription history (MAPs), review of the available imaging, evaluation and examination of the patient, coordination of care with the medical staff and if applicable referring physicians, as well as creation of the medical record PQRS Narrative: Smoking Status Never smoker Hx Alcohol Use (MH) No Home Medications: Ambulatory Orders Simvastatin 20 mg PO HS 10/29/14 Budesonide/Formoterol Fumarate [Symbicort 160-4.5 Mcg Inhaler] 2 puff INHALATION RT-DAILY PRN 03/20/16 oxyCODONE-APAP 7.5-325MG [Percocet 7.5-325 mg] 1 tab PO Q6HR PRN 04/27/18 Fluticasone Nasal Surprise [Flonase Nasal Surprise] 2 spr EA NOSTRIL DAILY PRN 08/14/18 Fexofenadine HCl [Yumiko Allergy] 180 mg PO DAILY PRN 04/08/19 Sertraline [Zoloft] 50 mg PO DAILY 09/30/20 fentaNYL 25MCG/HR PATCH [Duragesic 25MCG/HR] 50 mcg TRANSDERM Q72H 06/02/21 Ibuprofen [Motrin] 400 mg PO Q6HR PRN 12/24/21 Controlled Substance Measures - Controlled Substance Measures Is patient prescribed a controlled substance at discharge?: No
[2022-01-18 12:23] VITALS: BP 142/90; PULSE 67; RESP 18; TEMP 98.6
== END | disposition home or self-care (01) ==
LOC: PNWHC3 11:13
PROVIDERS: ATTEND Specialist
DX: M47.896 Other spondylosis, lumbar region (principal); M51.36 Other intervertebral disc degeneration, lumbar region
CPT/HCPCS: 99211

== ENCOUNTER → 2022-05-28 | Outpatient (CLI) | payer OTHER ==
[2022-05-28 17:58] LABS: Basophils # (A) 0.03 X 10*3/uL (0.00-0.10); Basophils % (A) 0.3 %; Eosinophils % (A) 0.9 %; HCT 38.5 % (37.2-46.3); HGB 12.3 g/dL (12.0-15.0); Immature Grans, Automated 0.3 %; Lymphocytes # (A) 4.61 X 10*3/uL (0.90-5.00); Lymphocytes % (A) 40.8 %; MCH 27.6 pg (27.0-32.0); MCHC 31.9 g/dL (32.0-37.0); MCV 86.3 fL (80.0-97.0); Mean Platelet Volume 10.1 fL (9.5-12.2); Monocytes # (A) 0.69 X 10*3/uL (0.20-1.00); Monocytes % (A) 6.1 %; NRBC Per 100 WBC 0 /100 WBCS (0.0-0.0); Neutrophils # (A) 5.83 X 10*3/uL (1.80-7.70); Neutrophils % (A) 51.6 %; Platelet Count 385 X 10*3/uL (140-440); RBC 4.46 X 10*6/uL (4.10-5.20); RDW 13.2 % (11.5-14.5); WBC 11.29 X 10*3/uL (4.50-10.00)
[2022-05-28 19:17] LABS: ALT 55 U/L (8-44); AST 29 U/L (13-35); Albumin 4.5 g/dL (3.8-4.9); Albumin/Globulin Ratio 2.37 (1.60-3.17); Alkaline Phosphatase 56 U/L (41-126); Bilirubin, Conjugated <0.20 mg/dL (0.20-0.40); Globulin 1.9 g/dL (1.6-3.3); Total Protein 6.4 g/dL (6.2-8.2)
[2022-05-28 19:18] LABS: African American GFR (CKD) 114.6 (60.0-200.0); BUN/Creat Ratio 23.14 Ratio (12.00-20.00); Blood Urea Nitrogen 16.2 mg/dL (9.0-27.0); Calcium 9.7 mg/dL (8.7-10.3); Carbon Dioxide 28.4 mmol/L (20.0-27.5); Chloride 107 mmol/L (96-109); Chol/HDL Ratio 2.51 Ratio; Glucose 83 mg/dL (70-110); LDL Cholesterol,Calculated 110.7 mg/dL (0.0-131.0); Non-African American GFR(CKD) 98.9 (60.0-200.0); Sodium 147 mmol/L (135-145)
== END | disposition home or self-care (01) ==
LOC: LABWHC1 07:47
PROVIDERS: ATTEND Internal Medicine Critical Care Medicine
DX: Z00.00 Encounter for general adult medical examination without abnormal findings (principal); E78.5 Hyperlipidemia, unspecified; R53.83 Other fatigue; R05.9 Cough, unspecified
CPT/HCPCS: 36415; 80053; 80061; 82248; 82306; 83036; 84439; 84443; 85025

== ENCOUNTER → 2023-03-08 | Outpatient (CLI) | payer BC ==
--- NOTE | 2023-03-09 23:29 | MM ---
Reason for Exam: Screening (asymptomatic). Last mammogram was performed 1 year(s) and 4 month(s) ago. Patient History: Menarche at age 10. Patient has no children. Postmenopausal. 08/2019, Benign Excisional Biopsy on the left side. Risk Values: Ivanna 5 year model risk: 1.5%. NCI Lifetime model risk: 10.8%. Prior Study Comparison: 10/10/2020 Bilateral Screening Mammogram, [facility]. 10/17/2020 Left Diagnostic Mammogram, [facility]. 11/25/2021 Bilateral Screening Mammogram, [facility]. Tissue Density: The breast tissue is heterogeneously dense. This may lower the sensitivity of mammography. Findings: Analyzed By CAD. There is no suspicious group of microcalcifications or new suspicious mass in either breast. Overall Assessment: Negative, BI-RAD 1 Management: Screening Mammogram of both breasts in 1 year. . Patient should continue monthly self-breast exams. A clinical breast exam by your physician is recommended on an annual basis. This exam should not preclude additional follow-up of suspicious palpable abnormalities. Note on Ivanna scores and lifetime risk: 1. A Ivanna score greater than 3% is considered moderate risk. If this is the case, consider specialist referral to assess eligibility for a risk reducing agent. 2. If overall lifetime risk for the development of breast cancer is 20% or higher, the patient may qualify for future screening with alternating mammogram and breast MRI. Electronically signed and approved by: Kevin Paez M.D. Radiologist
== END | disposition home or self-care (01) ==
LOC: RADMAMWWP 10:08
DX: Z12.31 Encounter for screening mammogram for malignant neoplasm of breast (principal); Z78.0 Asymptomatic menopausal state
CPT/HCPCS: 77063; 77067

== ENCOUNTER 2023-03-09 10:15 | Emergency (ER) | payer BC ==
[2023-03-09 10:46] VITALS: TEMP 98.9
[2023-03-09] MEDS ORDERED: PANTOPRAZOLE 40 MG/10 ML VIAL IVP STA (11:13)
[2023-03-09] MEDS ORDERED: ONDANSETRON 4 MG/2 ML VIAL IVP STA (11:13)
[2023-03-09] MEDS ORDERED: KETOROLAC 15 MG/ML 1 ML VIAL IVP STA (11:13)
[2023-03-09] MEDS ORDERED: SODIUM CHLORIDE 0.9% 1,000 ML IV STA (11:13)
[2023-03-09 11:45] LABS: Basophils % (A) 1 %; Eosinophils # (A) 0.1 k/uL (0-0.7); Eosinophils % (A) 2 %; HCT 41.3 % (34.0-46.0); HGB 13.7 gm/dL (11.4-16.0); Lymphocytes # (A) 2.1 k/uL (1.0-4.8); Lymphocytes % (A) 29 %; MCH 28.3 pg (25.0-35.0); MCHC 33.2 g/dL (31.0-37.0); MCV 85.3 fL (80.0-100.0); Mean Platelet Volume 8.3; Monocytes # (A) 0.4 k/uL (0-1.0); Monocytes % (A) 6 %; Neutrophils # (A) 4.5 k/uL (1.3-7.7); Neutrophils % (A) 62 %; Platelet Count 297 k/uL (150-450); RBC 4.84 m/uL (3.80-5.40); RDW 12.8 % (11.5-15.5); WBC 7.3 k/uL (3.8-10.6)
[2023-03-09 11:46] LABS: Appearance,Urine Cloudy (Clear); Bilirubin,Urine Negative (Negative); Blood,Urine Negative (Negative); Color,Urine Yellow; Glucose,Urine (UA) Negative (Negative); Ketones,Urine Negative (Negative); Leukocyte Esterase,Urine Small (Negative); Mucus,Urine Rare /hpf; Nitrite,Urine Negative (Negative); PH, Urine 5.5 (5.0-8.0); Protein,Urine Negative (Negative); RBC,Urine 1 /hpf (0-5); Specific Gravity,Urine 1.016 (1.001-1.035); Squamous Epithelial Cell,Urine 10 /hpf (0-4); Urobilinogen,Urine <2.0 mg/dL (<2.0); WBC,Urine 3 /hpf (0-5)
[2023-03-09 11:56] LABS: INR 0.9 (<1.2); Partial Thromboplastin Time 22.4 sec (22.0-30.0); Prothrombin Time 9.9 sec (9.0-12.0)
[2023-03-09 11:59] LABS: ALT 19 U/L (4-34); AST 24 U/L (14-36); African American GFR (CKD) >90 (>60 ml/min/1.73 sqM); Alkaline Phosphatase 67 U/L (38-126); Amylase 94 U/L (30-110); Anion Gap 10 mmol/L; Blood Urea Nitrogen 17 mg/dL (7-17); Calcium 9.7 mg/dL (8.4-10.2); Carbon Dioxide 28 mmol/L (22-30); Chloride 101 mmol/L (98-107); Glucose 119 mg/dL (74-99); Lipase 57 U/L (23-300); Non-African American GFR(CKD) >90 (>60 ml/min/1.73 sqM); Potassium 3.8 mmol/L (3.5-5.1); Sodium 139 mmol/L (137-145); Total Bilirubin 0.7 mg/dL (0.2-1.3); Total Protein 7.8 g/dL (6.3-8.2)
--- NOTE | 2023-03-09 12:28 | XR ---
EXAMINATION TYPE: XR chest 2V DATE OF EXAM: 03/09/2023 12:24 PM COMPARISON: Chest radiographs from 10/07/2022 TECHNIQUE: XR chest 2V Frontal and lateral views of the chest. CLINICAL INDICATION:Female, 52 years old with history of abdominal pain; FINDINGS: Lungs/Pleura: There is no evidence of pleural effusion, focal consolidation, or pneumothorax. Pulmonary vascularity: Unremarkable. Heart/mediastinum: Cardiomediastinal silhouette is unremarkable. Musculoskeletal: No acute osseous pathology. IMPRESSION: No acute cardiopulmonary disease/process.
--- NOTE | 2023-03-09 12:50 | CT ---
EXAMINATION TYPE: CT abdomen pelvis w con DATE OF EXAM: 03/09/2023 COMPARISON: PET CT chest 08/10/2019 HISTORY: abdominal pain CT DLP: 581.1 mGycm CONTRAST: CT scan of the abdomen and pelvis is performed without Oral Contrast and with IV Contrast, patient in jected with 100 mL of Isovue 300. FINDINGS: LUNG BASES-: No visible nodule. No infiltrate. LIVER/GB: No calcified gallstones. No space occupying hepatic lesion. Biliary tree is of normal ca liber. PANCREAS: No inflammation. No distinct mass. SPLEEN: No splenic enlargement. No lesion seen. ADRENALS: No nodule. No thickening. KIDNEYS/BLADDER: No hydronephrosis. No nephrolithiasis. Solid appearing mass upper pole left kidney has enlarged in size and currently measures 2.7 x 2.3 cm versus 1.7 x 1.1 cm. Hounsfield unit measur ement of greater than 50. MRI correlation is recommended. There is a too small to characterize adjace nt 6 mm nodule. Additional scattered renal cortical cysts are noted all measuring less than 1 cm. No solid mass right kidney. Urinary bladder grossly unremarkable. BOWEL: Normal appendix. Normal bowel caliber. No inflammation. Moderate fecal stasis greatest withi n the rectosigmoid region. GENITAL ORGANS: Lobulated appearance of the uterus which is angulated from left to right reflect und erlying leiomyomatous change. No adnexal masses identified. LYMPH NODES: No greater than 1cm abdominal or pelvic lymph nodes are appreciated. AORTA: No significant abnormality. OSSEOUS STRUCTURES: Large sacral Tarlov cysts noted and seen on prior CT of the pelvis 10/06/2017 and a ppear unchanged. OTHER: No significant additional abnormality is seen. IMPRESSION: 1. No acute intra-abdominal process appreciated. 2. Enlarging mass upper pole left kidney. I cannot exclude neoplasm and MRI of the kidneys is recomme nded which can be performed on an outpatient basis. 3. Lobulated appearance of the uterus may reflect underlying leiomyomatous change.
--- NOTE | 2023-03-09 13:49 | ED ---
General Adult HPI - General Chief complaint: Abdominal Pain Stated complaint: Abd/Back Pain under chest Time Seen by Provider: 03/09/23 10:54 Source: patient, RN notes reviewed, old records reviewed Mode of arrival: ambulatory Limitations: no limitations - History of Present Illness Initial comments: Patient is a 52-year-old female presents because Department complaining of chronic costochondritis as well as abdominal pain. Abdominal pain is more rec ent, however symptoms have been ongoing for weeks. Unknown etiology. His no other acute complaints at this time. Denies nausea, vomiting, diarrhea, constipation. Has not yet followed up with their PCP for this. Presents for further evaluation. Does have chronic pain and takes Norcos 4. Has no history of cardiac illness. Presents for further evaluation at this time. - Related Data Home Medications Medication Instructions Recorded Confirmed Sertraline [Zoloft] 50 mg PO DAILY 09/30/20 03/09/23 fentaNYL 25MCG/HR PATCH [Duragesic 1 patch TRANSDERM Q72H 06/02/21 03/09/23 25MCG/HR] Simvastatin [Zocor] 40 mg PO HS 10/07/22 03/09/23 fentaNYL 12MCG/HR PATCH [Duragesic 1 patch TRANSDERM Q72H 10/07/22 03/09/23 12MCG/HR] Cholecalciferol [Vitamin D3 (25 25 mcg PO DAILY 03/09/23 03/09/23 Mcg = 1000 Iu)] [place]-3/Dha/Epa/Fish Oil [Fish Oil 1 cap PO DAILY 03/09/23 03/09/23 1,000 mg Softgel] Psyllium Husk 100% [Metamucil 6 gm PO DAILY 03/09/23 03/09/23 Packet] oxyCODONE-APAP 5-325MG [Percocet 1 tab PO Q4H PRN 03/09/23 03/09/23 5-325 mg] Previous Rx's Medication Instructions Recorded Famotidine [Pepcid] 20 mg PO DAILY 7 Days #7 tablet 03/09/23 Allergies Allergy/AdvReac Type Severity Reaction Status Date / Time No Known Allergies Allergy Verified 03/09/23 12:02 Review of Systems ROS Statement: Those systems with pertinent positive or pertinent negative responses have been documented in the HPI. Review of Systems: CONST: Denies fever EYES: Denies blurry vision ENT: Denies nasal congestion C/V: Denies Chest pain RESP: Denies shortness of breath GI: Endorses abdominal pain : Denies dysuria SKIN: Denies rash. MSK: Denies joint pain. NEURO: Denies headache ROS Other: All systems not noted in ROS Statement are negative. Past Medical History Past Medical History: Asthma, GERD/Reflux, Hyperlipidemia, Pulmonary Embolus (PE) Additional Past Medical History / Comment(s): OTHER HX; TARLOV CYSTS ON SPINE with SACRAL/PELVIC PAIN, BENIGN LESIONS ON KIDNEYS, SEASONAL ALLERGIES. FACTOR 5, ELEVATED D-Dimer. Pt. 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 family hx of elevated d-dimer. costochondritis History of Any Multi-Drug Resistant Organisms: None Reported Past Surgical History: Back Surgery, Orthopedic Surgery Additional Past Surgical History / Comment(s): HYSTEROSCOPY/MYOMECTOMY- REMOVAL UTERINE FIBROIDS, TARLOV CYSTS ON SPINE DRAINED AND FILLED WITH BODY FAT 2006), EGD/COLONOSCOPY, BILATERAL LASER SURGERY FOR VISION CORRECTION SPINAL CORD STIMULATOR INSERTION/REMOVAL. Past Anesthesia/Blood Transfusion Reactions: Family History of Problems w/ Anesthesia, Motion Sickness, Postoperative Nausea & Vomiting (PONV) Additional Past Anesthesia/Blood Transfusion Reaction / Comment(s): states "mom gets sick" Past Psychological History: Anxiety Smoking Status: Never smoker Past Alcohol Use History: Occasional Past Drug Use History: Marijuana - Past Family History Sister(s) Family Medical History: Cancer Additional Family Medical History / Comment(s): THYROID CANCER Mother Family Medical History: Cancer Additional Family Medical History / Comment(s): PANCREATIC CANCER Father Family Medical History: Cancer, Hyperlipidemia Additional Family Medical History / Comment(s): LUNG CANCER General Exam - General Exam Comments Initial Comments: General: is in mild distress secondary to pain. HEAD: Normal with no signs of head trauma. EYES: PERRLA, EOMI, conjunctiva normal, no discharge. ENT: Hearing grossly intact, normal oropharynx. RESPIRATORY: Clear breath sounds bilaterally. No wheezes, rales, or rhonchi. C/V: Regular rate and rhythm. S1 and S2 auscultated, no edema, peripheral pulses 2+ and intact throughout ABD: Abdomen is soft, nondistended. Mild tenderness palpation epigastric region as well as periumbilically. No guarding. No rebound tenderness. No peritoneal signs. EXT: Normal range of motion, no obvious deformity. Patient has tenderness along bilateral inferior ribs with radiation along the flare maker lines which is chronic for the patient. SKIN: No rashes or lesions observed on exposed skin. NEURO: Alert and oriented 4. Limitations: no limitations Course Vital Signs 03/09/23 03/09/23 03/09/23 10:42 11:48 12:30 Temperature 98.9 F Pulse Rate 101 H 102 H 88 Respiratory 18 16 18 Rate Blood Pressure 133/78 144/94 117/71 O2 Sat by Pulse 99 100 100 Oximetry 03/09/23 14:09 Temperature Pulse Rate 71 Respiratory 17 Rate Blood Pressure 117/77 O2 Sat by Pulse 100 Oximetry Medical Decision Making - Medical Decision Making Was pt. sent in by a medical professional or institution (, PA, QUALITY ANALYST, urgent care, hospital, or [facility]...) When possible be specific @ -No Did you speak to anyone other than the patient for history (EMS, parent, family, police, friend...)? What history was obtained from this source @ -No Did you review nursing and triage notes (agree or disagree)? Why? @ -I reviewed and agree with nursing and triage notes Were old charts reviewed (outside hosp., previous admission, EMS record, old EKG, old radiological studies, urgent care reports/EKG's, [facility] records)? Report findings @ -Old charts as well as CT imaging from 2017 were reviewed. Differential Diagnosis (chest pain, altered mental status, abdominal pain women, abdominal pain men, vaginal bleeding, weakness, fever, dyspnea, syncope, headache, dizziness, GI bleed, back pain, seizure, CVA, palpatations, mental health, musculoskeletal)? @ -Differential Abdominal Pain Women: Appendicitis, Cholecystitis, diverticulosis, ischemic bowel, pancreatitis, hepatitis, UTI, gastroenteritis, AAA, incarcerated hernia, bowel obstruction, constipation, inflammatory bowel, hepatitis, peptic ulcer disease, splenic infarction, perforated viscus, vulvitis, ovarian torsion, PID, kidney stone, placenta abruption, this is not meant to be an all-inclusive list EKG interpreted by me (3pts min.). @ -As above X-rays interpreted by me (1pt min.). @ -Chest x-ray reveals no obvious acute cardiopulmonary process. No rib injury. CT interpreted by me (1pt min.). @ -CT and pelvis reveals no obvious acute abdominal process. She does have an enlarging left kidney mass seen on prior imaging. Also some uterine fibroids. Renal mass is old but enlarged. U/S interpreted by me (1pt. min.). @ -None done What testing was considered but not performed or refused? (CT, X-rays, U/S, labs)? Why? @ -None What meds were considered but not given or refused? Why? @ -None Did you discuss the management of the patient with other professionals (bela gonzales i.e. , PA, QUALITY ANALYST, lab, RT, psych nurse, social media community manager, business lawyer, teacher, nuclear officer, employment case manager)? Give summary @ -No Was smoking cessation discussed for >3mins.? @ -No Was critical care preformed (if so, how long)? @ -No Were there social determinants of health that impacted care today? How? (Homelessness, low income, unemployed, alcoholism, drug addiction, transportation, low edu. Level, literacy, decrease access to med. care, shelter, rehab)? @ -No Was there de-escalation of care discussed even if they declined (Discuss DNR or withdrawal of care, Hospice)? DNR status @ -No What co-morbidities impacted this encounter? (DM, HTN, Smoking, COPD, CAD, Cancer, CVA, ARF, Chemo, Hep., AIDS, mental health diagnosis, sleep apnea, morbid obesity)? @ -None Was patient admitted / discharged? Hospital course, mention meds given and route, prescriptions, significant lab abnormalities, going to OR and other pertinent info. @ -Based on the patient's presentation and physical exam, patient presents with abdominal pain. It is nonspecific. Patient is also having her chronic costochondritis. Patient has been ongoing for weeks. We'll obtain abdominal labs, as well as cardiac rule out and CT abdomen and pelvis. She was in agreement with this plan. Discuss analgesia medication options, patient will be administered IV fluids, IV Protonix, IV Zofran, IV Toradol. Vital signs within acceptable limits. Patient's laboratory studies are rem arkable for an undetectable troponin. Labs are otherwise within acceptable limits. Chest x-ray shows no obvious acute cardio pulmonary process. EKG is within acceptable limits. Recent CT and pelvis shows he enlarging left renal mass that is known to the patient but not perfect that is enlarging. We discussed her workup. Discussed her CT with her. She will be discharged home with strict follow-up with nephrology as well as patient's PCP. Patient was in agreement this plan. I will provide the patient with a prescription for famotidine. I instructed the patient to follow up with their PCP in the next 1-3 days. I provided contact information for follow up with nephrology . I explained that the patient should return to the emergency department if they experience any worsening symptoms. Strict return precautions were discussed with the patient. The patient expressed understanding of these instructions. I answered all questions that the patient had. The patient was discharged home in good condition with their prescriptions and follow up information. Undiagnosed new problem with uncertain prognosis? @ -No Drug Therapy requiring intensive monitoring for toxicity (Heparin, Nitro, Insulin, Cardizem)? @ -No Were any procedures done? @ -No Diagnosis/symptom? @ -Abdominal pain of unknown etiology Acute, or Chronic, or Acute on Chronic? @ -Acute Uncomplicated (without systemic symptoms) or Complicated (systemic symptoms)? @ -Uncomplicated Side effects of treatment? @ -No Exacerbation, Progression, or Severe Exacerbation? @ -No Poses a threat to life or bodily function? How? (Chest pain, [place], [place], pneumonia, PE, COPD, DKA, ARF, appy, cholecystitis, CVA, Diverticulitis, Homicidal, Suicidal, threat to staff... and all critical care pts) @ -No Diagnosis/symptom? @ -Left renal mass Acute, or Chronic, or Acute on Chronic? @ -Acute on chronic Uncomplicated (without systemic symptoms) or Complicated (systemic symptoms)? @ -Uncomplicated Side effects of treatment? @ -none Exacerbation, Progression, or Severe Exacerbation] @ -no Poses a threat to life or bodily function? @ -no Diagnosis/symptom? @ -Costochondritis Acute, or Chronic, or Acute on Chronic? @ -Chronic Uncomplicated (without systemic symptoms) or Complicated (systemic symptoms)? @ -Uncomplicated Side effects of treatment? @ -none Exacerbation, Progression, or Severe Exacerbation] @ -no Poses a threat to life or bodily function? @ -no - Lab Data Result diagrams: 03/09/23 11:17 03/09/23 11:17 Lab Results 03/09/23 03/09/23 03/09/23 Range/Units 11:17 11:17 11:17 WBC 7.3 (3.8-10.6) k/uL RBC 4.84 (3.80-5.40) m/uL Hgb 13.7 (11.4-16.0) gm/dL Hct 41.3 (34.0-46.0) % MCV 85.3 (80.0-100.0) fL MCH 28.3 (25.0-35.0) pg MCHC 33.2 (31.0-37.0) g/dL RDW 12.8 (11.5-15.5) % Plt Count 297 (150-450) k/uL MPV 8.3 Neutrophils % 62 % Lymphocytes % 29 % Monocytes % 6 % Eosinophils % 2 % Basophils % 1 % Neutrophils # 4.5 (1.3-7.7) k/uL Lymphocytes # 2.1 (1.0-4.8) k/uL Monocytes # 0.4 (0-1.0) k/uL Eosinophils # 0.1 (0-0.7) k/uL Basophils # 0.0 (0-0.2) k/uL PT (9.0-12.0) sec INR (<1.2) APTT (22.0-30.0) sec Sodium 139 (137-145) mmol/L Potassium 3.8 (3.5-5.1) mmol/L Chloride 101 (98-107) mmol/L Carbon Dioxide 28 (22-30) mmol/L Anion Gap 10 mmol/L BUN 17 (7-17) mg/dL Creatinine 0.57 (0.52-1.04) mg/dL Est GFR (CKD-EPI)AfAm >90 (>60 ml/min/1.73 sqM) Est GFR (CKD-EPI)NonAf >90 (>60 ml/min/1.73 sqM) Glucose 119 H (74-99) mg/dL Plasma Lactic Acid Gregorio 1.5 (0.7-2.0) mmol/L Calcium 9.7 (8.4-10.2) mg/dL Total Bilirubin 0.7 (0.2-1.3) mg/dL AST 24 (14-36) U/L ALT 19 (4-34) U/L Alkaline Phosphatase 67 (38-126) U/L Troponin I (0.000-0.034) ng/mL Total Protein 7.8 (6.3-8.2) g/dL Albumin 5.0 (3.5-5.0) g/dL Amylase 94 (30-110) U/L Lipase 57 (23-300) U/L Urine Color Urine Appearance (Clear) Urine pH (5.0-8.0) Ur Specific Tavares (1.001-1.035) Urine Protein (Negative) Urine Glucose (UA) (Negative) Urine Ketones (Negative) Urine Blood (Negative) Urine Nitrite (Negative) Urine Bilirubin (Negative) Urine Urobilinogen (<2.0) mg/dL Ur Leukocyte Esterase (Negative) Urine RBC (0-5) /hpf Urine WBC (0-5) /hpf Ur Squamous Epith Cells (0-4) /hpf Urine Mucus (None) /hpf 03/09/23 03/09/23 03/09/23 Range/Units 11:17 11:17 11:17 WBC (3.8-10.6) k/uL RBC (3.80-5.40) m/uL Hgb (11.4-16.0) gm/dL Hct (34.0-46.0) % MCV (80.0-100.0) fL MCH (25.0-35.0) pg MCHC (31.0-37.0) g/dL RDW (11.5-15.5) % Plt Count (150-450) k/uL MPV Neutrophils % % Lymphocytes % % Monocytes % % Eosinophils % % Basophils % % Neutrophils # (1.3-7.7) k/uL Lymphocytes # (1.0-4.8) k/uL Monocytes # (0-1.0) k/uL Eosinophils # (0-0.7) k/uL Basophils # (0-0.2) k/uL PT 9.9 (9.0-12.0) sec INR 0.9 (<1.2) APTT 22.4 (22.0-30.0) sec Sodium (137-145) mmol/L Potassium (3.5-5.1) mmol/L Chloride (98-107) mmol/L Carbon Dioxide (22-30) mmol/L Anion Gap mmol/L BUN (7-17) mg/dL Creatinine (0.52-1.04) mg/dL Est GFR (CKD-EPI)AfAm (>60 ml/min/1.73 sqM) Est GFR (CKD-EPI)NonAf (>60 ml/min/1.73 sqM) Glucose (74-99) mg/dL Plasma Lactic Acid Gregorio (0.7-2.0) mmol/L Calcium (8.4-10.2) mg/dL Total Bilirubin (0.2-1.3) mg/dL AST (14-36) U/L ALT (4-34) U/L Alkaline Phosphatase (38-126) U/L Troponin I <0.012 (0.000-0.034) ng/mL Total Protein (6.3-8.2) g/dL Albumin (3.5-5.0) g/dL Amylase (30-110) U/L Lipase (23-300) U/L Urine Color Yellow Urine Appearance Cloudy H (Clear) Urine pH 5.5 (5.0-8.0) Ur Specific Tavares 1.016 (1.001-1.035) Urine Protein Negative (Negative) Urine Glucose (UA) Negative (Negative) Urine Ketones Negative (Negative) Urine Blood Negative (Negative) Urine Nitrite Negative (Negative) Urine Bilirubin Negative (Negative) Urine Urobilinogen <2.0 (<2.0) mg/dL Ur Leukocyte Esterase Small H (Negative) Urine RBC 1 (0-5) /hpf Urine WBC 3 (0-5) /hpf Ur Squamous Epith Cells 10 H (0-4) /hpf Urine Mucus Rare H (None) /hpf - EKG Data -: EKG Interpreted by Me EKG Comments: 12-lead Electrocardiogram Interpretation Note EKG was reviewed and interpreted by myself. 12-lead ECG performed at 1124 is interpreted by me as revealing normal sinus rhythm at a rate of 73 beats per minute. Bucks is normal. SC interval is 127 ms, QRS duration is 92 ms, QTc is 395 ms.. There were no ST or T wave abnormalities to suggest myocardial isc hemia or injury. R wave progression across the precordium was satisfactory. By my interpretation this EKG is non-diagnostic for acute ischemia. Disposition Clinical Impression: Abdominal pain, Abdominal pain of unknown cause, Renal mass Disposition: HOME SELF-CARE Condition: Good Instructions (If sedation given, give patient instructions): Abdominal Pain (ED) Additional Instructions: follow up with nephrology for renal mass. Prescriptions: Famotidine [Pepcid] 20 mg PO DAILY 7 Days #7 tablet Is patient prescribed a controlled substance at d/c from ED?: No Referrals: Juan J Tobin DO [Primary Care Provider] - 1-2 days Reji Nieto DO [STAFF PHYSICIAN] - 1-2 days Time of Disposition: 13:40
[2023-03-09 14:24] VITALS: BP 117/77; PULSE 71; RESP 17
== END 2023-03-09 14:23 | disposition home or self-care (01) ==
LOC: EC 10:15
DX: N28.89 Other specified disorders of kidney and ureter (principal); F41.9 Anxiety disorder, unspecified; J45.909 Unspecified asthma, uncomplicated; E78.5 Hyperlipidemia, unspecified; F12.90 Cannabis use, unspecified, uncomplicated; Z79.899 Other long term (current) drug therapy
CPT/HCPCS: 36415; 93005; 80053; 82150; 83605; 83690; 84484; 85025; 85610; 85730; 81001; 71046; 74177; 99285; 96374; 96375 ×2; 96361; J2405; J1885; C9113; Q9967

== ENCOUNTER → 2023-04-09 | Outpatient (CLI) | payer BC ==
--- NOTE | 2023-04-12 13:05 | MR ---
EXAMINATION TYPE: MR kidney wo/w con DATE OF EXAM: 04/09/2023 11:36 AM CLINICAL INDICATION:Female, 52 years old with history of D41.02 KIDNEY CA; Abdominal pain, abnormal C T COMPARISON: MR kidney to 09/03/2016. CT 03/09/2023 TECHNIQUE: Multiplanar multi-sequence imaging was performed without contrast. Post contrast imaging was performed. Post IV contrast subtraction images were also submitted for review. IV Contrast: 6 cc Gadavist FINDINGS: LOWER CHEST: No gross irregularity. ABDOMEN Liver: No evidence for hepatic steatosis or cirrhosis. Gallbladder and Bile ducts: No evidence for ductal dilation, or biliary stricture or evidence of chol edocholithiasis. The gallbladder is within normal limits. Pancreas: No ductal dilation. No evidence for solid mass. Spleen: Normal for size. Adrenal glands: Unremarkable. Kidneys: Multiple high T1 signal cysts are present within the left kidney measuring up to 10 mm. Ther e is at least 4 of these lesions. The larger lesion of concern in the left superior kidney posteriorl y measures up to 2.5 cm and is intermediate T2 /T1 signal. Postcontrast imaging demonstrates no abnor mal enhancement including on subtraction imaging. Other lesions within the left kidney including simp le and proteinaceous/hemorrhagic cyst also do not demonstrate postcontrast enhancement. No evidence f or obstructive uropathy. Simple appearing right renal cyst without enhancement noted. No evidence for obstructive uropathy. Stomach and Bowel: No evidence for bowel wall thickening or evidence for obstruction.. Peritoneum: No evidence of pneumoperitoneum or free fluid. Vasculature: No aortic aneurysm. Musculoskeletal: The osseous structures appear intact. Lymph Nodes: No gross evidence for lymphadenopathy. Abdominal wall: Unremarkable. IMPRESSION: Left renal hemorrhagic/proteinaceous cysts including the lesion of concern in the left superior renal cortex. No suspicious left renal mass. Additionally there are simple appearing bilateral renal cysts .
== END | disposition home or self-care (01) ==
LOC: RADMRIMAIN 10:12
PROVIDERS: ATTEND Urology
DX: D41.02 Neoplasm of uncertain behavior of left kidney (principal); N28.1 Cyst of kidney, acquired
CPT/HCPCS: 74183; A9585

== ENCOUNTER 2023-09-12 10:06 | Emergency (ER) | payer BC ==
[2023-09-12 10:33] VITALS: BP 153/80; PULSE 86; RESP 18; TEMP 98.3
--- NOTE | 2023-09-12 11:44 | ED ---
General Adult HPI - General Chief complaint: Abdominal Pain Stated complaint: lower abd pain Time Seen by Provider: 09/12/23 10:54 Source: patient, RN notes reviewed Mode of arrival: ambulatory Limitations: no limitations - History of Present Illness Initial comments: 53-year-old female presents to the emergency department for evaluation of lower abdominal cramping with rectal pain. Patient reports that the rectal pain has been going on for around 1 week. She notes that she has the urge to have a bowel movement frequently last bowel movement was today. Patient is passing gas normally. She does report some lower abdominal cramping which is changed. Patient reports history of pilonidal cysts, she states that this is different. She does utilize fentanyl patches along with [place] at home for pain. Last colonoscopy 5 years ago. - Related Data Home Medications Medication Instructions Recorded Confirmed Sertraline [Zoloft] 50 mg PO DAILY 09/30/20 03/09/23 fentaNYL 25MCG/HR PATCH [Duragesic 1 patch TRANSDERM Q72H 06/02/21 03/09/23 25MCG/HR] Simvastatin [Zocor] 40 mg PO HS 10/07/22 03/09/23 fentaNYL 12MCG/HR PATCH [Duragesic 1 patch TRANSDERM Q72H 10/07/22 03/09/23 12MCG/HR] Cholecalciferol [Vitamin D3 (25 25 mcg PO DAILY 03/09/23 03/09/23 Mcg = 1000 Iu)] [place]-3/Dha/Epa/Fish Oil [Fish Oil 1 cap PO DAILY 03/09/23 03/09/23 1,000 mg Softgel] Psyllium Husk 100% [Metamucil 6 gm PO DAILY 03/09/23 03/09/23 Packet] oxyCODONE-APAP 5-325MG [Percocet 1 tab PO Q4H PRN 03/09/23 03/09/23 5-325 mg] Previous Rx's Medication Instructions Recorded Famotidine [Pepcid] 20 mg PO DAILY 7 Days #7 tablet 03/09/23 Doxycycline [Vibramycin] 100 mg PO BID #20 capsule 09/12/23 Allergies Allergy/AdvReac Type Severity Reaction Status Date / Time No Known Allergies Allergy Verified 09/12/23 10:19 Review of Systems ROS Statement: Those systems with pertinent positive or pertinent negative responses have been documented in the HPI. ROS Other: All systems not noted in ROS Statement are negative. Past Medical History Past Medical History: Asthma, GERD/Reflux, Hyperlipidemia, Pulmonary Embolus (PE) Additional Past Medical History / Comment(s): OTHER HX; TARLOV CYSTS ON SPINE with SACRAL/PELVIC PAIN, BENIGN LESIONS ON KIDNEYS, SEASONAL ALLERGIES. FACTOR 5, ELEVATED D-Dimer. Pt. states that per her [employer] Manager after reviewing scans she did not have a PE in September of 2017, continues to experience elevated d-dimer with lab work. family hx of elevated d-dimer. costochondritis History of Any Multi-Drug Resistant Organisms: None Reported Past Surgical History: Back Surgery, Orthopedic Surgery Additional Past Surgical History / Comment(s): HYSTEROSCOPY/MYOMECTOMY- REMOVAL UTERINE FIBROIDS, TARLOV CYSTS ON SPINE DRAINED AND FILLED WITH BODY FAT 2006), EGD/COLONOSCOPY, BILATERAL LASER SURGERY FOR VISION CORRECTION SPINAL CORD STIMULATOR INSERTION/REMOVAL. Past Anesthesia/Blood Transfusion Reactions: Family History of Problems w/ Anesthesia, Motion Sickness, Postoperative Nausea & Vomiting (PONV) Additional Past Anesthesia/Blood Transfusion Reaction / Comment(s): states "mom gets sick" Past Psychological History: Anxiety, Depression Smoking Status: Never smoker Past Alcohol Use History: Occasional Past Drug Use History: Marijuana - Past Family History Sister(s) Family Medical History: Cancer Additional Family Medical History / Comment(s): THYROID CANCER Mother Family Medical History: Cancer Additional Family Medical History / Comment(s): PANCREATIC CANCER Father Family Medical History: Cancer, Hyperlipidemia Additional Family Medical History / Comment(s): LUNG CANCER General Exam Limitations: no limitations General appearance: alert, in no apparent distress Head exam: Present: atraumatic, normocephalic, normal inspection Eye exam: Present: normal appearance, PERRL, EOMI. Absent: scleral icterus, conjunctival injection, periorbital swelling ENT exam: Present: normal exam, mucous membranes moist Neck exam: Present: normal inspection. Absent: tenderness, meningismus, lymphadenopathy Respiratory exam: Present: normal lung sounds bilaterally. Absent: respiratory distress, wheezes, rales, rhonchi, stridor Cardiovascular Exam: Present: regular rate, normal rhythm, normal heart sounds. Absent: systolic murmur, diastolic murmur, rubs, gallop, clicks GI/Abdominal exam: Present: soft, normal bowel sounds. Absent: distended, tenderness, guarding, rebound, rigid Rectal exam: Present: normal inspection, normal rectal tone. Absent: hemorrhoids, mass, tenderness Neurological exam: Present: alert, oriented X3, CN II-XII intact Psychiatric exam: Present: normal affect, normal mood Skin exam: Present: warm, dry, intact, normal color. Absent: rash Course Vital Signs 09/12/23 10:15 Temperature 98.3 F Pulse Rate 86 Respiratory 18 Rate Blood Pressure 153/80 O2 Sat by Pulse 99 Oximetry Medical Decision Making - Medical Decision Making Was pt. sent in by a medical professional or institution (, PA, ROOM ATTENDANT, urgent care, hospital, or care home...) When possible be specific @ -No Did you speak to anyone other than the patient for history (EMS, parent, family, police, friend...)? What history was obtained from this source @ -No Did you review nursing and triage notes (agree or disagree)? Why? @ -I reviewed and agree with nursing and triage notes Were old charts reviewed (outside hosp., previous admission, EMS record, old EKG, old radiological studies, urgent care reports/EKG's, care home records)? Report findings @ -No old charts were reviewed Differential Diagnosis (chest pain, altered mental status, abdominal pain women, abdominal pain men, vaginal bleeding, weakness, fever, dyspnea, syncope, headache, dizziness, GI bleed, back pain, seizure, CVA, palpatations, mental health, musculoskeletal)? @ -Differential Abdominal Pain Women: Appendicitis, Cholecystitis, diverticulosis, ischemic bowel, pancreatitis, hepatitis, UTI, gastroenteritis, AAA, incarcerated hernia, bowel obstruction, constipation, inflammatory bowel, hepatitis, peptic ulcer disease, splenic infarction, perforated viscus, vulvitis, ovarian torsion, PID, kidney stone, placenta abruption, this is not meant to be an all-inclusive list EKG interpreted by me (3pts min.). @ -None X-rays interpreted by me (1pt min.). @ -None done CT interpreted by me (1pt min.). @ -CT abdomen pelvis obtained which shows mild proximal rectal wall thickening U/S interpreted by me (1pt. min.). @ -None done What testing was considered but not performed or refused? (CT, X-rays, U/S, labs)? Why? @ -None What meds were considered but not given or refused? Why? @ -None Did you discuss the management of the patient with other professionals (professionals i.e. , PA, ROOM ATTENDANT, lab, RT, psych nurse, social work supervisor, user interface engineer, teacher, small business banking officer, case management manager)? Give summary @ -No Was smoking cessation discussed for >3mins.? @ -No Was critical care preformed (if so, how long)? @ -No Were there social determinants of health that impacted care today? How? (Homelessness, low income, unemployed, alcoholism, drug addiction, transportation, low edu. Level, literacy, decrease access to med. care, assisted, rehab)? @ -No Was there de-escalation of care discussed even if they declined (Discuss DNR or withdrawal of care, Hospice)? DNR status @ -No What co-morbidities impacted this encounter? (DM, HTN, Smoking, COPD, CAD, Cancer, CVA, ARF, Chemo, Hep., AIDS, mental health diagnosis, sleep apnea, morbid obesity)? @ -None Was patient admitted / discharged? Hospital course, mention meds given and route, prescriptions, significant lab abnormalities, going to OR and other p ertinent info. @ -Discharge. Patient presented to the emergency department for evaluation of rectal pain and lower abdominal cramping. Laboratory studies obtained. Patient has a normal WBC of 7.9, hemoglobin 13.7; CMP shows sodium 143, potassium 4.2, creatinine 0.53, lipase 82, lactic acid 1.9; CT abdomen pelvis obtained which shows mild proximal rectal wall thickening. Discussed findings with patient. Will attempt a trial of antibiotics and advised to follow-up with GI. Patient understanding agreeable with plan. Patient stable at time of discharge. Case discussed with Dr. Dash Undiagnosed new problem with uncertain prognosis? @ -No Drug Therapy requiring intensive monitoring for toxicity (Heparin, Nitro, Insulin, Cardizem)? @ -No Were any procedures done? @ -No Diagnosis/symptom? @ -Rectal wall thickening Acute, or Chronic, or Acute on Chronic? @ -Acute Uncomplicated (without systemic symptoms) or Complicated (systemic symptoms)? @ -Uncomplicated Side effects of treatment? @ -No Exacerbation, Progression, or Severe Exacerbation? @ -No Poses a threat to life or bodily function? How? (Chest pain, [place], [place], pneumonia, PE, COPD, DKA, ARF, appy, cholecystitis, CVA, Diverticulitis, Homicidal, Suicidal, threat to staff... and all critical care pts) @ -No - Lab Data Result diagrams: 09/12/23 11:52 09/12/23 11:52 Lab Results 09/12/23 09/12/23 09/12/23 Range/Units 11:52 11:52 11:52 WBC 7.9 (3.8-10.6) k/uL RBC 4.76 (3.80-5.40) m/uL Hgb 13.4 (11.4-16.0) gm/dL Hct 41.4 (34.0-46.0) % MCV 87.0 (80.0-100.0) fL MCH 28.2 (25.0-35.0) pg MCHC 32.5 (31.0-37.0) g/dL RDW 12.9 (11.5-15.5) % Plt Count 310 (150-450) k/uL MPV 8.2 Neutrophils % 76 % Lymphocytes % 18 % Monocytes % 4 % Eosinophils % 1 % Basophils % 0 % Neutrophils # 6.0 (1.3-7.7) k/uL Lymphocytes # 1.5 (1.0-4.8) k/uL Monocytes # 0.3 (0-1.0) k/uL Eosinophils # 0.1 (0-0.7) k/uL Basophils # 0.0 (0-0.2) k/uL Sodium 143 (137-145) mmol/L Potassium 4.2 (3.5-5.1) mmol/L Chloride 107 (98-107) mmol/L Carbon Dioxide 27 (22-30) mmol/L Anion Gap 9 mmol/L BUN 15 (7-17) mg/dL Creatinine 0.53 (0.52-1.04) mg/dL Est GFR (CKD-EPI)AfAm >90 (>60 ml/min/1.73 sqM) Est GFR (CKD-EPI)NonAf >90 (>60 ml/min/1.73 sqM) Glucose 108 H (74-99) mg/dL Plasma Lactic Acid Gregorio 1.9 (0.7-2.0) mmol/L Calcium 9.9 (8.4-10.2) mg/dL Total Bilirubin 0.6 (0.2-1.3) mg/dL AST 28 (14-36) U/L ALT 19 (4-34) U/L Alkaline Phosphatase 68 (38-126) U/L Total Protein 8.0 (6.3-8.2) g/dL Albumin 5.2 H (3.5-5.0) g/dL Amylase 126 H (30-110) U/L Lipase 82 (23-300) U/L Disposition Clinical Impression: Rectal pain, Proctitis Disposition: HOME SELF-CARE Condition: Stable Instructions (If sedation given, give patient instructions): Rectal Pain (ED) Additional Instructions: 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 Please follow up with GI. Return to the emergency department for new or worsening symptoms. Prescriptions: Doxycycline [Vibramycin] 100 mg PO BID #20 capsule Is patient prescribed a controlled substance at d/c from ED?: No Referrals: Juan J Tobin DO [Primary Care Provider] - 1-2 days Sarah Ashby MD [STAFF PHYSICIAN] - 1-2 days
[2023-09-12] MEDS: HYDROmorphone 0.5 MG/0.5 ML SYRINGE IVP STA (11:54)
[2023-09-12 12:05] LABS: Basophils % (A) 0 %; Eosinophils # (A) 0.1 k/uL (0-0.7); Eosinophils % (A) 1 %; HCT 41.4 % (34.0-46.0); HGB 13.4 gm/dL (11.4-16.0); Lymphocytes # (A) 1.5 k/uL (1.0-4.8); Lymphocytes % (A) 18 %; MCH 28.2 pg (25.0-35.0); MCHC 32.5 g/dL (31.0-37.0); Mean Platelet Volume 8.2; Monocytes # (A) 0.3 k/uL (0-1.0); Monocytes % (A) 4 %; Neutrophils % (A) 76 %; Platelet Count 310 k/uL (150-450); RBC 4.76 m/uL (3.80-5.40); RDW 12.9 % (11.5-15.5); WBC 7.9 k/uL (3.8-10.6)
--- NOTE | 2023-09-12 12:23 | CT ---
EXAMINATION TYPE: CT abdomen pelvis w con DATE OF EXAM: 09/12/2023 COMPARISON: 03/09/2023 INDICATION: Rectal pain, pelvic pain DLP: 693.6 mGycm, Automated exposure control for dose reduction was used. CONTRAST: 100 ml mL of Isovue 300. Study performed without Oral Contrast TECHNIQUE: Axial images were obtained from above the diaphragm to the pubic rami in the axial plane a t 5 mm thick sections. Reconstructed images are reviewed on the computer in the coronal plane. FINDINGS: Limited CT sections are obtained the lung bases. The lung bases are clear. CT ABDOMEN: Liver: Normal Spleen: Normal Pancreas: Normal Adrenal glands: The adrenal glands are normal. Gallbladder: Normal Kidneys: No masses are evident. No hydronephrosis is present. Cortical renal cysts are present with in the left kidney. The largest is in the posterior lateral upper pole left kidney measuring 2.1 cm. Delayed images were obtained through the kidneys, which remain unremarkable. Aorta: Vascular calcification is within the aorta. Inferior vena cava: Normal. CT PELVIS: Loops of bowel within the abdomen and pelvis are normal. This study is without oral contrast limi ting bowel evaluation. Some wall thickening through the rectal sigmoid region may be present. Appendix: Normal as visualized. Urinary bladder: Normal. Genitourinary structures: Uterus is unremarkable. Adnexa are normal. Osseous structures: No suspicious lytic or sclerotic lesions. There is likely large Tarlov cysts with in the upper sacral canal. IMPRESSION: 1. Left renal cortical cysts. 2. Correlate for proximal rectal wall thickening.
[2023-09-12 12:24] LABS: ALT 19 U/L (4-34); AST 28 U/L (14-36); African American GFR (CKD) >90 (>60 ml/min/1.73 sqM); Albumin 5.2 g/dL (3.5-5.0); Alkaline Phosphatase 68 U/L (38-126); Amylase 126 U/L (30-110); Anion Gap 9 mmol/L; Blood Urea Nitrogen 15 mg/dL (7-17); Calcium 9.9 mg/dL (8.4-10.2); Carbon Dioxide 27 mmol/L (22-30); Chloride 107 mmol/L (98-107); Glucose 108 mg/dL (74-99); Lipase 82 U/L (23-300); Non-African American GFR(CKD) >90 (>60 ml/min/1.73 sqM); Potassium 4.2 mmol/L (3.5-5.1); Sodium 143 mmol/L (137-145); Total Bilirubin 0.6 mg/dL (0.2-1.3)
[2023-09-12] MEDS: cefTRIAXone IN SWFI 1,000 MG/10 ML SYRINGE IVP STA (13:39)
== END 2023-09-12 13:46 | disposition home or self-care (01) ==
LOC: EC 10:06
DX: K62.89 Other specified diseases of anus and rectum (principal); E78.5 Hyperlipidemia, unspecified; J45.909 Unspecified asthma, uncomplicated; F41.9 Anxiety disorder, unspecified; F32.A Depression, unspecified; F12.90 Cannabis use, unspecified, uncomplicated; Z79.899 Other long term (current) drug therapy
CPT/HCPCS: 99284 ×2; 96374 ×2; 96375 ×2; 36415; 80053; 82150; 83605; 83690; 85025; 74177; J0696; J1170; Q9967

== ENCOUNTER → 2023-10-22 | Outpatient (CLI) | payer BC ==
--- NOTE | 2023-10-22 11:13 | MR ---
EXAMINATION TYPE: MR lumbar spine wo/w con DATE OF EXAM: 10/22/2023 COMPARISON: 10/17/2020 HISTORY: Low back pain, sacral cyst. TECHNIQUE: Multiplanar, multisequence images of the lumbar spine were acquired without and with 6 mL intravenous Gadavist gadolinium contrast. Findings: The heterogeneous fluid and fatty structure on the posterior aspect of the thecal sac at the mid sacr al level is again seen and is stable. There is a history of surgery in this region. The lumbar vertebral segments are normal in height and alignment there is no fracture or subluxation. The disc spaces are well-maintained in height and there is no significant degenerative disc disease. There are no lumbar disc herniations. There is mild facet arthropathy at the L3-4 and L4-5 levels. There is no spinal stenosis. The SI joints are normal. IMPRESSION: 1. No lumbar spine fracture or malalignment. 2. No lumbar disc degeneration or herniation. 3. No spinal stenosis. 4. Mild facet arthropathy at L3-4 and L4-5 levels. 5. Stable Postsurgical changes in the mid sacral area as described above.
== END | disposition home or self-care (01) ==
LOC: RADMRIMAIN 09:47
PROVIDERS: ATTEND Neurological Surgery
DX: M47.816 Spondylosis without myelopathy or radiculopathy, lumbar region (principal); M51.36 Other intervertebral disc degeneration, lumbar region
CPT/HCPCS: 72158

== ENCOUNTER 2023-11-03 07:56 | Day surgery (SDC) | payer BC ==
[2023-11-03] MEDS: diazePAM 5 MG TAB PO STA (08:56)
[2023-11-03 08:57] VITALS: RESP 16; TEMP 98.1
[2023-11-03] MEDS: oxyCODONE-APAP 5-325MG 1 EACH TAB PO STA (10:58)
[2023-11-03 15:41] VITALS: BP 135/62; PULSE 60
--- NOTE | 2023-11-04 11:57 | FL ---
EXAMINATION TYPE: FL myelogram lumbosacral DATE OF EXAM: 11/03/2023 10:11 AM CLINICAL INDICATION:Female, 53 years old with history of M51.36 OTHER INTERVERTEBRAL DISC DEGENERATIO N, LUM; COMPARISON: 09/12/2023, 10/21/2023 ATTENDING: Juan J Card D.O. FINDINGS: Informed consent was obtained including discussion of the risks and benefits. Timeout was taken per p rotocol. Real-time fluoroscopy was performed to localize the lumbar spine access site. The patient wa s prepped and draped. Under sterile technique with local anesthesia a 22-gauge spinal needle was intr oduced into the arachnoid space with return of clear CSF. A total of 10 cc of Isovue-300 M was inject ed with appropriate opacification of the thecal sac. Total fluoroscopy time was 49 seconds Total fluoroscopic images 0. Radiographs taken: 8 DAP: Not Reported by machine [id number] IMPRESSION: Successful lumbar puncture with injection for CT myelogram. CT pending.
--- NOTE | 2023-11-04 12:04 | CT ---
EXAMINATION TYPE: CT lumbar spine w con CT DLP: 453.4 mGycm, Automated exposure control for dose reduction was used. DATE OF EXAM: 11/03/2023 10:13 AM COMPARISON: 09/12/2023, 10/22/2023. , MRI kidney 04/09/2023 CLINICAL INDICATION:Female, 53 years old with history of M51.36 OTHER INTERVERTEBRAL DISC DEGENERATIO N, LUM; PHH, lumbo-sacral pain, pt states she has cysts on spinal column including sacrum TECHNIQUE: Multiple axial images were obtained from the midportion of T11 through the sacroiliac konstantin nts. Soft tissue and bone windows in coronal and sagittal planes were obtained and reviewed. Contrast used: Intrathecal 10 mL of Isovue M300 with IV Contrast. Oral contrast used: (None, if empty). FINDINGS: Alignment: There are 5 lumbar type vertebral bodies within normal alignment. Bone: Scattered mild degeneration with facet joint arthropathy and osteophyte formation. Discs: No evidence for significant spinal canal or neural foraminal stenosis throughout the lumbar spine. Th e sacrum demonstrates multiple saccular dilation's of the thecal sac around the exiting nerves. Addit ional bilateral perineural cysts are present at the levels of S2 to S4. In these likely displaced the nerves. Degenerative be better evaluated with MRI. Other: Multiple renale lesions some of which are high density compatible with hemorrhagic/proteinaceo us cyst. These are all predominantly in the left. There is at least one its indeterminate the superio r posterior aspect of the left kidney measuring up to 19 mm. IMPRESSION: 1. No evidence significant spinal canal or neural foraminal stenosis. 2. Saccular dilation of the thecal sac as multiple nerves exit. There is also not became perineural cysts present throughout the sacrum most pronounced at the level of of S2-S4. 3. Proteinaceous/hemorrhagic cysts left kidney.
== END 2023-11-03 14:41 | disposition home or self-care (01) ==
LOC: RADPROMAIN 07:56
PROVIDERS: ATTEND Neurological Surgery
DX: M51.36 Other intervertebral disc degeneration, lumbar region (principal)
CPT/HCPCS: 62304; 72132; Q9967

== ENCOUNTER 2023-11-16 10:04 | Day surgery (SDC) | payer BC ==
[2023-11-15 10:58] VITALS: BMI 22.6
[2023-11-16] MEDS: LIDOCAINE 1% (10MG/ML) FOR IV START INTRADERMA ONE (11:10)
[2023-11-16] MEDS: LACTATED RINGERS 1,000 ML IV SCH (11:10)
[2023-11-16] MEDS: ONDANSETRON 4 MG/2 ML VIAL ONE (11:15)
[2023-11-16] MEDS: DEXAMETHASONE SOD PHOSPHATE 4 MG/ML 1 ML VIAL IVP ONE (11:15)
[2023-11-16 11:17] VITALS: RESP 16; TEMP 97.6
[2023-11-16] MEDS ORDERED: PROPOFOL 10 MG/ML 20 ML VIAL IV ONE (11:46)
[2023-11-16] MEDS ORDERED: LIDOCAINE 1% INJ 10MG/ML (20 ML MDV) ONE (11:46)
--- NOTE | 2023-11-16 12:02 | P.PCN ---
Date of Procedure: 11/16/23 Procedure(s) Performed: BRIEF HISTORY: Patient is a 53-year-old pleasant white female scheduled for an elective colonoscopy as a part of Screening for colon cancer. PROCEDURE PERFORMED: Colonoscopy with snare polypectomy. PREOPERATIVE DIAGNOSIS: Screening for colon cancer IV sedation per Anesthesia. PROCEDURE: After informed consent was obtained, the patient, was brought into the endoscopy unit. IV sedation was administered by Anesthesia under continuous monitoring. Digital rectal examination was normal. Initially the Olympus CF-160 flexible video colonoscope was then inserted in the rectum, gradually advanced into the cecum without any difficulty. Careful examination was performed as the scope was gradually being withdrawn. Ileocecal valve and the appendiceal orifice were visualized and appeared normal. Prep was excellent. Mucosa of the cecum, And a 5 limited sessile cecal polyp that was removed by cold snare polyp rectum he. Rest of theascending colon, transverse colon, descending colon, sigmoid colon, and rectum appeared normal. Retroflexion was performed in the rectum and no lesions were seen. The patient tolerated the procedure well. IMPRESSION: 5 mm sessile cecal polyp status post cold snare polypectomy Rest of the colon appeared normal RECOMMENDATIONS: Findings of this examination were discussed with the patient As well as a family. She was advised to follow with the biopsy results. If the biopsy is adenoma she can have a repeat colonoscopy in 5 years.
[2023-11-16 12:43] VITALS: BP 111/75; PULSE 80
== END 2023-11-16 12:42 | disposition home or self-care (01) ==
LOC: ORWHC2ENDO 10:04
PROVIDERS: ATTEND Internal Medicine Gastroenterology
DX: Z12.11 Encounter for screening for malignant neoplasm of colon (principal); D12.0 Benign neoplasm of cecum; E78.5 Hyperlipidemia, unspecified; J45.909 Unspecified asthma, uncomplicated; F41.9 Anxiety disorder, unspecified; Z79.51 Long term (current) use of inhaled steroids; Z98.890 Other specified postprocedural states; Z79.899 Other long term (current) drug therapy
CPT/HCPCS: 88305; 45385; J1100; J2405; J2001; J2704

== ENCOUNTER → 2023-11-16 | Outpatient (CLI) | payer BC ==
[2023-11-16 15:59] LABS: Basophils # (A) 0.04 X 10*3/uL (0.00-0.10); Basophils % (A) 0.5 %; Eosinophils # (A) 0.01 X 10*3/uL (0.04-0.35); Eosinophils % (A) 0.1 %; HCT 38.8 % (37.2-46.3); Lymphocytes % (A) 10.8 %; MCH 28.6 pg (27.0-32.0); MCHC 33.5 g/dL (32.0-37.0); MCV 85.3 FL (80.0-97.0); Mean Platelet Volume 10.6 FL (9.5-12.2); Monocytes # (A) 0.13 X 10*3/uL (0.20-1.00); Monocytes % (A) 1.6 %; NRBC Per 100 WBC 0 X 10*3/uL (0.00-0.01); Neutrophils # (A) 7.23 X 10*3/uL (1.80-7.70); Neutrophils % (A) 86.5 %; Platelet Count 317 X 10*3/uL (140-440); RBC 4.55 X 10*6/uL (4.10-5.20); RDW 12.7 % (11.5-14.5); WBC 8.35 X 10*3/uL (4.50-10.00)
[2023-11-16 16:16] LABS: Chol/HDL Ratio 2.32 Ratio; VLDL Calculation 11.08 mg/dL (5.00-40.00)
[2023-11-16 16:17] LABS: ALT 21 U/L (8-44); AST 20 U/L (13-35); Albumin 4.9 g/dL (3.8-4.9); Albumin/Globulin Ratio 2.13 Ratio (1.60-3.17); Alkaline Phosphatase 67 U/L (41-126); BUN/Creat Ratio 13.71 Ratio (12.00-20.00); Blood Urea Nitrogen 9.6 mg/dL (9.0-27.0); Calcium 9.9 mg/dL (8.7-10.3); Carbon Dioxide 28.5 mmol/L (21.6-31.8); Chloride 103 mmol/L (96-109); Globulin 2.3 g/dL (1.6-3.3); Glucose 101 mg/dL (70-110); LDL Cholesterol,Calculated 110.7 mg/dL (0.0-131.0); Sodium 145 mmol/L (135-145); T4, Free (Free Thyroxine) 1.26 ng/dL (0.80-1.80); Total Bilirubin 0.4 mg/dL (0.3-1.2); Total Protein 7.2 g/dL (6.2-8.2)
== END | disposition home or self-care (01) ==
LOC: LABWHC1 13:15
PROVIDERS: ATTEND Internal Medicine Critical Care Medicine
DX: E78.5 Hyperlipidemia, unspecified (principal); D68.59 Other primary thrombophilia; D68.2 Hereditary deficiency of other clotting factors
CPT/HCPCS: 36415; 80053; 80061; 82306; 83036; 84439; 84443; 85025

== ENCOUNTER → 2024-02-06 | Outpatient (CLI) | payer BC ==
[2024-02-06 13:36] VITALS: BP 133/60; PULSE 82; RESP 16
--- NOTE | 2024-02-06 15:05 | P.PAINPG ---
PQRS Measure Charge Sheet Comment: A 53 yr old female with a history of severe and chronic LBP > 10 yrs secondary to DDD, spondylosis and facet arthropathy presents today for an evaluation. In Jun 2021, she experienced 75% pain relief x 2 mo s/p procedure. Pain level is currently at 8 /10 in intensity, localized in the rectal area, sharp in character w occasional shooting towards the perineum area. Pain is provoked by sitting, driving and stress. Pain is alleviated with very little with PT & chiropractic treatments, alternating heat & ice, medications, laying supine on the side. Interventional pain procedures completed include Tarlov Cystectomies, Caudal AN w lysis (Jun 2021) Patient is currently on Oxycodone, Fentanyl patches Patient denies any side effects of the medication(s), denies excessive drowsiness or sleepiness, denies suicidal ideation and reports that the current pain medication is helping to control the pain and improve activities of daily living. Patient denies any motor or sensory deficits. Patient denies any fever or night sweats, denies any change in the bowel movements or urination. Physical Examination: -Constitutional: Cooperative. Not in acute distress . -HEENT: Neck is supple. No lymphadenopathy. No thyromegaly. Normal thyroid size. Eyes: No ptosis , no icterus, no photophobia. ENT: No auditory deficits. Normal oropharynx. No Thrush. - Respiratory: Chest clear to auscultations bilaterally. No wheezing. No rhonchi. - Cardiovascular: Regular rate and rhythm. S1 / S2 , no S3 , no S4. - Gastrointestinal: Abdomen soft no tenderness. Bowel sounds positive in all four quadrants. No organomegaly. - Genitourinary: Deferred. - Neurologic: Cranial nerve II to XII intact. No focal neurological deficits. - Psychatric: Alert & oriented x 3. Matching mood & appropriate affect. Judgment and insight intact. - Lymphatic: No Lymphadenopathy - Musculoskeletal: Cervical spine: Muscle bulk/ tone/ strength in the bilateral upper extremities normal Vertebral body tenderness to palpation over Facet loading test positive Thoracic spine Muscle bulk / tone/ strength in the bilateral paraspinal muscles normal Vertebral body tender to palpation over Facet loading test positive Lumbar spine: Well healed 5" vertical incisional scar Motor bulk/ tone/ strength lower extremities , thigh and legs : 5/5 Deep tendon reflexes : Normal Knee Jerk. Normal Ankle Jerk . Vertebral body tenderness to palpation over L5 Lumbar Facet Loading Test positive Straight Leg Raise: positive at 30 degrees right side/ left side Gaenslen's Test positive Sacral spine : Severe tenderness over the Sacroiliac joint: right side / left side Range of motion: Flexion of the lumbar spine <60 degrees Range of motion: Extension of the lumbar spine <20 degrees Gaenslen's Test positive L>R Dylan's Test positive Judson test: positive right side / left side Thigh Thrust Test Sacral Thrust Test Assessment and plan: Chronic LBP secondary to lumbar degenerative disc disease , lumbar spondylosis with facet arthropathy without myelopathy Recommendation of Caudal AN #1. May need a series of injections for optimal pain relief. Risks, benefits of procedure discussed and pt verbalized understanding. Protocol for discontinuation/ continuation of medications james procedure discussed. All patient questions answered . MAPS reviewed and it was appropriate. I have spent 31 minutes on patient care today. Dr Levin was available by phone for the evaluation of this patient. The time was used to review the medical records including relevant urine studies and Prescription history (MAPs), review of the available imaging, evaluation and examination of the patient, coordination of care with the medical staff and if applicable referring physicians, as well as creation of the medical record PQRS Narrative: Smoking Status Never smoker Hx Alcohol Use (MH) No Home Medications: Ambulatory Orders Sertraline [Zoloft] 50 mg PO QAM 09/30/20 fentaNYL 25MCG/HR PATCH [Duragesic 25MCG/HR] 1 patch TRANSDERM Q72H 06/02/21 Simvastatin [Zocor] 40 mg PO HS 10/07/22 fentaNYL 12MCG/HR PATCH [Duragesic 12MCG/HR] 1 patch TRANSDERM Q72H 10/07/22 Cholecalciferol [Vitamin D3 (25 Mcg = 1000 Iu)] 25 mcg PO DAILY 03/09/23 [place]-3/Dha/Epa/Fish Oil [Fish Oil 1,000 mg Softgel] 1 cap PO DAILY 03/09/23 Psyllium Husk 100% [Metamucil Packet] 6 gm PO DAILY 03/09/23 oxyCODONE-APAP 5-325MG [Percocet 5-325 mg] 1 tab PO Q4H PRN 03/09/23 Budesonide/Formoterol Fumarate [Budesonide-Formoterol 160-4.5] 2 puff INHALATION BID 10/13/23 Albuterol Inhaler [Ventolin Hfa Inhaler] 1 - 2 puff INHALATION Q6H PRN 11/15/23 Multivitamins, Thera [Multivitamin (formulary)] 1 tab PO DAILY 11/15/23 diazePAM [Valium] 5 mg PO DAILY PRN 1 Days #2 tab 02/06/24 Controlled Substance Measures - Controlled Substance Measures Is patient prescribed a controlled substance at discharge?: Yes When asked, does pt state using other controlled substances?: Yes If prescribed controlled substance>3 days was MAPS reviewed?: Prescribed <3 Days
== END | disposition home or self-care (01) ==
LOC: PNWHC3 12:43
PROVIDERS: ATTEND Specialist
DX: M51.36 Other intervertebral disc degeneration, lumbar region (principal); M47.816 Spondylosis without myelopathy or radiculopathy, lumbar region
CPT/HCPCS: 99211

== ENCOUNTER 2024-02-23 11:28 | Day surgery (SDC) | payer BC ==
[2024-02-22 12:47] VITALS: BMI 22.6
[2024-02-23] MEDS: IV FLUID CONTINUATION 1,000 ML IV ONE (11:50)
[2024-02-23 11:59] VITALS: TEMP 97.7
[2024-02-23] MEDS ORDERED: ROPIVACAINE 5MG/ML 20ML VIAL ONE (12:23)
[2024-02-23] MEDS ORDERED: ONDANSETRON 4 MG/2 ML VIAL ONE (12:23)
[2024-02-23] MEDS ORDERED: methylPREDNISolone ACETATE 80 MG/ML 1 ML VIAL ONE (12:23)
[2024-02-23] MEDS ORDERED: IOPAMIDOL M200 10 ML VIAL ONE (12:23)
[2024-02-23] MEDS ORDERED: fentaNYL (PF) 50 MCG/ML 2 ML AMP ONE (12:23)
[2024-02-23] MEDS ORDERED: MIDAZOLAM 2 MG/2 ML VIAL ONE (12:23)
--- NOTE | 2024-02-23 12:36 | P.PCN ---
Date of Procedure: 02/23/24 Procedure(s) Performed: PREOP DIAGNOSIS= 1. Coccydynia 2. Proctalgia. 3-lumbar degenerative disc d isease. 4-lumbar spondylosis with lumbar facet arthropathy POSTOP DIAGNOSIS=: 1. Coccydynia 2. Proctalgia. 3-lumbar degenerative disc disease. 4-lumbar spondylosis with lumbar facet arthropathy PROCEDURE: Ganglion impar block under fluoroscopy guidance. ANESTHESIA: Moderate sedation with Versed 1 mg and fentanyl. 100 mcg, (sedation start 1223, ended at 1228 EBL:None. PROCEDURE INDICATION: The patient with chronic rectal pain ,non responsive to more conservative measures. PROCEDURE DESCRIPTION: The patient was seen and identified in the preoperative area. Risks, benefits, complications, and alternatives were discussed with the patient. The patient agreed to proceed with the procedure and signed the consent. IV was started, and vital signs were stable. Patient was taken to the OR and time out was completed. The patient was placed in the prone position on procedure table and a pillow was placed under the abdomen to reduce lumbar lordosis.The lumbosacral area was prepped and draped in the usual sterile fashion. Critical pause was taken. Vital signs were closely monitored during the procedure. Using crosstable lateral view, the sacrococcygeal joint was identified and localized with local infiltration of the skin and subcutaneous tissue with ropivacaine 0.5% 1 mL. A 22-guage 3-1/2 inch needle was inserted through the just at the lateral edge of sacrococcygeal ligament and advanced to the anterior aspect of the joint guided by myrtle-posterior and lateral fluoroscopy. Correct needle position was verified by injecting 2 ml of water soluble dye, Omnipaque 300, and observing a spread along the anterior side of the sacro-coccygeal ligament. After negative aspiration of CSF, blood, and no paresthesias, 5 mL of block solution containing 4mL of 0.5%preservative-free ropivacaine and 80 mg of Depomedrol was injected. Needle was withdrawn intact. Skin was cleansed and bandages were applied COMPLICATIONS: None DISPOSITION / PLANS: The patient was placed in a supine position and transferred to the recovery area in a stable condition for observation. Patient was discharged from the recovery room after meeting discharge criteria. Discharge instructions given to the patient by the staff. The patient was reexamined prior to discharge. The patient will schedule a follow up in the clinic in 2-4 weeks.
[2024-02-23] MEDS: IV FLUID CONTINUATION 700 ML IV ONE (12:39)
[2024-02-23 12:41] VITALS: RESP 18
--- NOTE | 2024-02-23 12:42 | FL ---
EXAMINATION TYPE: FL guided pain mgmt statistic DATE OF EXAM: 02/23/2024 HISTORY: Fluoroscopy time Total dose area product (DAP) in uGy*m?, mGy*cm? (or similar): 0.93983 IMPRESSION: 1. Fluoroscopy time.
[2024-02-23 13:04] VITALS: BP 117/60; PULSE 69
== END 2024-02-23 13:10 | disposition home or self-care (01) ==
LOC: ORPAIN 11:28
PROVIDERS: ATTEND Specialist
DX: M47.816 Spondylosis without myelopathy or radiculopathy, lumbar region (principal); M51.36 Other intervertebral disc degeneration, lumbar region; M53.3 Sacrococcygeal disorders, not elsewhere classified; K62.89 Other specified diseases of anus and rectum; G89.29 Other chronic pain; Z79.1 Long term (current) use of non-steroidal anti-inflammatories (NSAID)
CPT/HCPCS: 64999; J2250; J2405; J3010; Q9966; J2795; J1010

== ENCOUNTER → 2024-03-09 | Outpatient (CLI) | payer BC ==
--- NOTE | 2024-03-29 14:01 | MR ---
Site ID synapse default Patient Heidy Baker A ID [id number] Age/Gender: 53Y, F Order # N/A Procedure MR Kidney wo/w Date 03/09/2024 3:46:18 PM EXAMINATION TYPE: MR kidney wo/w con DATE OF EXAM: 03/24/2024 3:52 PM INDICATION: Patient age: Female; 53 year old; Reason for study: Left renal mass COMPARISON: CT lumbar spine 11/03/2023, MRI lumbar spine 10/22/2023, CT abdomen and pelvis 09/12/2023, MR kidney 04/09/2023 TECHNIQUE: Multiplanar multi-sequence imaging was performed of the abdomen without and with IV contr ast. The patient was given 5.5 ccs of Gadavist intravenously and dynamic imaging was performed. Post IV contrast subtraction images were also submitted for review. FINDINGS: LOWER CHEST: No gross irregularity. ABDOMEN: Liver: No evidence for hepatic steatosis or cirrhosis. Gallbladder and Bile ducts: No evidence for ductal dilation, or biliary stricture or evidence of chol edocholithiasis. The gallbladder is within normal limits. Pancreas: No ductal dilation. No evidence for solid mass. Spleen: Normal for size. Adrenal glands: Unremarkable. Kidneys: Multiple stable size high T1 signal cysts are present within the left kidney. There are appr oximate 5 of these lesions. The largest lesion of concern in the left superior kidney posteriorly shaniqua sures up to 2.2 cm, previously 2.5 cm. It is again intermediate T2 /T1 signal. Postcontrast imaging d emonstrates no abnormal enhancement including on subtraction imaging of any lesions. No hydronephrosi s involving either kidney. No definitive right renal lesions. Stomach and Bowel: No evidence for bowel wall thickening or evidence for obstruction. Peritoneum: No evidence of pneumoperitoneum or free fluid. Vasculature: No aortic aneurysm. Musculoskeletal: The osseous structures appear intact. Benign vertebral hemangioma identified within the T10 vertebral body when compared to CT. Sacral Tarlov cysts. Lymph Nodes: No gross evidence for lymphadenopathy. Abdominal wall: Unremarkable. IMPRESSION: Stable left renal hemorrhagic/proteinaceous cysts including the lesion of concern in the left superio r renal cortex. No suspicious enhancing left renal mass.
== END | disposition home or self-care (01) ==
LOC: RADMRIMAIN 11:02
PROVIDERS: ATTEND Urology
DX: D41.02 Neoplasm of uncertain behavior of left kidney (principal)
CPT/HCPCS: 74183; A9585

== ENCOUNTER → 2024-03-12 | Outpatient (CLI) | payer BC | LOC: PNWHC3 10:55 | PROVIDERS: ATTEND Specialist | DX: M47.26 Other spondylosis with radiculopathy, lumbar region (principal) | CPT/HCPCS: 99211 ==

== ENCOUNTER → 2024-03-29 | Day surgery (SDC) | payer BC ==
[~2024-03-29] MED LIST changes: +IOPAMIDOL M200 10 ML VIAL ONE; +MIDAZOLAM 2 MG/2 ML VIAL ONE; +ROPIVACAINE 5MG/ML 20ML VIAL ONE; +fentaNYL (PF) 50 MCG/ML 2 ML AMP ONE; +methylPREDNISolone ACETATE 80 MG/ML 1 ML VIAL ONE
[2024-03-29] MEDS: IV FLUID CONTINUATION 1,000 ML IV ONE ×2 (08:33→09:30)
[2024-03-29 08:36] VITALS: TEMP 97.2
--- NOTE | 2024-03-29 09:24 | P.PCN ---
Date of Procedure: 03/29/24 Procedure(s) Performed: PREOP DIAGNOSIS= 1. Coccydynia 2. Proctalgia. 3-lumbar degenerative disc di sease. 4-lumbar spondylosis with lumbar facet arthropathy POSTOP DIAGNOSIS=: 1. Coccydynia 2. Proctalgia. 3-lumbar degenerative disc disease. 4-lumbar spondylosis with lumbar facet arthropathy PROCEDURE: Ganglion impar block under fluoroscopy guidance. ANESTHESIA: Moderate sedation with Versed 2 mg and fentanyl. 50 mcg, (sedation start 09:15, ended at 0921 ) EBL:None. PROCEDURE INDICATION: The patient with chronic rectal pain ,non responsive to more conservative measures. PROCEDURE DESCRIPTION: The patient was seen and identified in the preoperative area. Risks, benefits, complications, and alternatives were discussed with the patient. The patient agreed to proceed with the procedure and signed the consent. IV was started, and vital signs were stable. Patient was taken to the OR and time out was completed. The patient was placed in the prone position on procedure table and a pillow was placed under the abdomen to reduce lumbar lordosis.The lumbosacral area was prepped and draped in the usual sterile fashion. Critical pause was taken. Vital signs were closely monitored during the procedure. Using crosstable lateral view, the sacrococcygeal joint was identified and localized with local infiltration of the skin and subcutaneous tissue with ropivacaine 0.5% 1 mL. A 22-guage 3-1/2 inch needle was inserted through the just at the lateral edge of sacrococcygeal ligament and advanced to the anterior aspect of the joint guided by myrtle-posterior and lateral fluoroscopy. Correct needle position was verified by injecting 2 ml of water soluble dye, Omnipaque 300, and observing a spread along the anterior side of the sacro-coccygeal ligament. After negative aspiration of CSF, blood, and no paresthesias, 5 mL of block solution containing 4 mL of 0.5%preservative-free ropivacaine and 80 mg of Depo-medrol was injected. Needle was withdrawn intact. Skin was cleansed and bandages were applied COMPLICATIONS: None DISPOSITION / PLANS: The patient was placed in a supine position and transferred to the recovery area in a stable condition for observation. Patient was discharged from the recovery room after meeting discharge criteria. Discharge instructions given to the patient by the staff. The patient was reexamined prior to discharge. The patient will schedule a follow up in the clinic in 2-4 weeks.
[2024-03-29 09:46] VITALS: BP 107/63; PULSE 60; RESP 15
== END ==
LOC: ORPAIN 08:02
PROVIDERS: ATTEND Specialist
DX: M53.3 Sacrococcygeal disorders, not elsewhere classified (principal); M47.816 Spondylosis without myelopathy or radiculopathy, lumbar region; M51.36 Other intervertebral disc degeneration, lumbar region; K62.89 Other specified diseases of anus and rectum; G89.29 Other chronic pain
CPT/HCPCS: 64510; 99152

== ENCOUNTER → 2024-04-13 | Outpatient (CLI) | payer BC ==
--- NOTE | 2024-04-17 16:04 | MM ---
Reason for Exam: Screening (asymptomatic). Last mammogram was performed 1 year(s) and 1 month(s) ago. Patient History: Menarche at age 10. Patient has no children. Postmenopausal. 08/2019, Benign Excisional Biopsy on the left side. Risk Values: Ivanna 5 year model risk: 1.6%. NCI Lifetime model risk: 10.7%. Prior Study Comparison: 10/17/2020 Left Diagnostic Mammogram, [facility]. 11/25/2021 Bilateral Screening Mammogram, [facility]. 03/08/2023 Bilateral MG 3D screening mammo w/cad, [facility]. Tissue Density: The breasts are extremely dense, which lowers the sensitivity of mammography. Findings: Analyzed By CAD. The pattern is symmetrical. No significant interval change. No suspicious groups of microcalcifications, spiculated or lobular masses, architectural distortion or other secondary signs of malignancy are mammographically apparent. Overall Assessment: Benign, BI-RAD 2 Management: Screening Mammogram of both breasts in 1 year. A negative mammogram report should not preclude additional follow up of suspicious palpable abnormalities. Patient should continue monthly self breast exam. A clinical breast exam by your physician is recommended on an annual basis and results should be correlated with mammographic findings. Note on Ivanna scores and lifetime risk: 1. A Ivanna score greater than 3% is considered moderate risk. If this is the case, consider specialist referral to assess eligibility for a risk reducing agent. 2. If overall lifetime risk for the development of breast cancer is 20% or higher, the patient may qualify for future screening with alternating mammogram and breast MRI. [facility], , 04/17/2024 4:01 PM. Electronically signed and approved by: Fredo Callahan D.O. Radiologis
== END | disposition home or self-care (01) ==
LOC: RADMAMWWP 16:08
PROVIDERS: ATTEND Obstetrics & Gynecology
DX: Z12.31 Encounter for screening mammogram for malignant neoplasm of breast
CPT/HCPCS: 77063; 77067

== ENCOUNTER → 2024-05-09 | Outpatient (CLI) | payer BC ==
[2024-05-09 10:13] VITALS: BP 131/84; PULSE 72; RESP 16; TEMP 97.7
--- NOTE | 2024-05-09 13:15 | P.PAINPG ---
PQRS Measure Charge Sheet Comment: A 53 yr old female with a history of severe and chronic LBP > 10 yrs secondary to radiculopathy, spondylosis and facet arthropathy presents today for an evaluation s/p Ganglion Impar Nerve Block #2. Pt states she experienced 50 % pain relief x 3-4 wks s/p procedure. Pain level is currently at 7 /10 in inte nsity, localized in the rectal area, sharp in character w occasional shooting towards the perineum area. Pain is provoked by sitting, driving and stress. Pain is alleviated with very little with PT & chiropractic treatments, alternating heat & ice, medications, laying supine on the side. Interventional pain procedures completed include Tarlov Cystectomies, Caudal AN w lysis (Jun 2021), Ganglion Impar Nerve Block x2 Patient is currently on Oxycodone, Fentanyl patches Patient denies any side effects of the medication(s), denies excessive drowsiness or sleepiness, denies suicidal ideation and reports that the current pain medication is helping to control the pain and improve activities of daily living. Patient denies any motor or sensory deficits. Patient denies any fever or night sweats, denies any change in the bowel movements or urination. Physical Examination: -Constitutional: Cooperative. Not in acute distress . -HEENT: Neck is supple. No lymphadenopathy. No thyromegaly. Normal thyroid size. Eyes: No ptosis , no icterus, no photophobia. ENT: No auditory deficits. Normal oropharynx. No Thrush. - Respiratory: Chest clear to auscultations bilaterally. No wheezing. No rhonchi. - Cardiovascular: Regular rate and rhythm. S1 / S2 , no S3 , no S4. - Gastrointestinal: Abdomen soft no tenderness. Bowel sounds positive in all four quadrants. No organomegaly. - Genitourinary: Deferred. - Neurologic: Cranial nerve II to XII intact. No focal neurological deficits. - Psychatric: Alert & oriented x 3. Matching mood & appropriate affect. Judgment and insight intact. - Lymphatic: No Lymphadenopathy - Musculoskeletal: Cervical spine: Muscle bulk/ tone/ strength in the bilateral upper extremities normal Vertebral body tenderness to palpation over Facet loading test positive Thoracic spine Muscle bulk / tone/ strength in the bilateral paraspinal muscles normal Vertebral body tender to palpation over Facet loading test positive Lumbar spine: Well healed 5" vertical incisional scar Motor bulk/ tone/ strength lower extremities , thigh and legs : 5/5 Deep tendon reflexes : Normal Knee Jerk. Normal Ankle Jerk . Vertebral body tenderness to palpation over L5 Lumbar Facet Loading Test positive Straight Leg Raise: positive at 30 degrees right side/ left side Gaenslen's Test positive Sacral spine : Severe tenderness over the Sacroiliac joint: right side / left side Range of motion: Flexion of the lumbar spine <60 degrees Range of motion: Extension of the lumbar spine <20 degrees Gaenslen's Test positive L>R Dylan's Test positive Judson test: positive right side / left side Thigh Thrust Test Sacral Thrust Test Assessment and plan: Chronic LBP secondary to Tarlov cysts, radiculopathy , lumbar spondylosis with facet arthropathy without myelopathy Recommendation of Ganglion Impar Nerve block #3. May need a series of injections for optimal pain relief. Risks, benefits of procedure discussed and pt verbalized understanding. Protocol for discontinuation/ continuation of medications james procedure discussed. Minimal anesthesia including Fentanyl and Versed if clinically indicated. All patient questions answered . MAPS reviewed and it was appropriate. I have spent 31 minutes on patient care today. Dr Levin was available by phone for the evaluation of this patient. The time was used to review the medical records including relevant urine studies and Prescription history (MAPs), review of the available imaging, evaluation and examination of the patient, coordination of care with the medical staff and if applicable referring physicians, as well as creation of the medical record - Pain Location Groin Non-Pharmacological Interventions: Heat, Ice, Position/Reposition, Standing Pharmacological Interventions: PRN Medication, Scheduled Medication, Topical Medication PQRS Narrative: Smoking Status Never smoker Hx Alcohol Use (MH) No Home Medications: Ambulatory Orders Sertraline [Zoloft] 50 mg PO QAM 09/30/20 Simvastatin [Zocor] 40 mg PO HS 10/07/22 Psyllium Husk 100% [Metamucil Packet] 6 gm PO DAILY 03/09/23 oxyCODONE-APAP 5-325MG [Percocet 5-325 mg] 1 tab PO Q4H PRN 03/09/23 Budesonide/Formoterol Fumarate [Budesonide-Formoterol 160-4.5] 2 puff INHALATION BID PRN 10/13/23 Albuterol Inhaler [Ventolin Hfa Inhaler] 1 - 2 puff INHALATION Q6H PRN 11/15/23 fentaNYL 25MCG/HR PATCH [Duragesic 25MCG/HR] 25 mcg TRANSDERM Q72H 02/22/24 Melatonin 6 mg PO HS PRN 03/27/24 diazePAM [Valium] 5 mg PO DAILY PRN 03/29/24 Controlled Substance Measures - Controlled Substance Measures Is patient prescribed a controlled substance at discharge?: Yes When asked, does pt state using other controlled substances?: Yes If prescribed controlled substance>3 days was MAPS reviewed?: Prescribed <3 Days
== END ==
LOC: PNWHC3 09:47
PROVIDERS: ATTEND Specialist
DX: G89.29 Other chronic pain
CPT/HCPCS: 99211

== ENCOUNTER 2024-08-03 06:58 | Day surgery (SDC) | payer BC ==
[2024-08-03] MEDS: IV FLUID CONTINUATION 1,000 ML IV ONE ×2 (07:25→08:19)
[2024-08-03 07:28] VITALS: RESP 16; TEMP 97.1
[2024-08-03] MEDS: LACTATED RINGERS 1,000 ML IV SCH (07:30)
[2024-08-03] MEDS ORDERED: ROPIVACAINE 5MG/ML 20ML VIAL ONE (08:05)
[2024-08-03] MEDS ORDERED: fentaNYL (PF) 50 MCG/ML 2 ML AMP ONE (08:05)
[2024-08-03] MEDS ORDERED: MIDAZOLAM 2 MG/2 ML VIAL ONE (08:05)
[2024-08-03] MEDS ORDERED: methylPREDNISolone ACETATE 80 MG/ML 1 ML VIAL ONE (08:05)
[2024-08-03] MEDS ORDERED: IOPAMIDOL M200 10 ML VIAL ONE (08:05)
--- NOTE | 2024-08-03 08:15 | P.PCN ---
Date of Procedure: 08/03/24 Procedure(s) Performed: PREOP DIAGNOSIS= 1. Coccydynia 2. Proctalgia. 3-lumbar degenerative disc di sease. 4-lumbar spondylosis with lumbar facet arthropathy POSTOP DIAGNOSIS=: 1. Coccydynia 2. Proctalgia. 3-lumbar degenerative disc disease. 4-lumbar spondylosis with lumbar facet arthropathy PROCEDURE: Ganglion impar block under fluoroscopy guidance. ANESTHESIA: Moderate sedation with Versed 2 mg and fentanyl. 50 mcg, (sedation start 08:05, ended at 08:12 ) EBL:None. PROCEDURE INDICATION: The patient with chronic rectal pain ,non responsive to more conservative measures. PROCEDURE DESCRIPTION: The patient was seen and identified in the preoperative area. Risks, benefits, complications, and alternatives were discussed with the patient. The patient agreed to proceed with the procedure and signed the consent. IV was started, and vital signs were stable. Patient was taken to the OR and time out was completed. The patient was placed in the prone position on procedure table and a pillow was placed under the abdomen to reduce lumbar lordosis.The lumbosacral area was prepped and draped in the usual sterile fashion. Critical pause was taken. Vital signs were closely monitored during the procedure. Using crosstable lateral view, the sacrococcygeal joint was identified and localized with local infiltration of the skin and subcutaneous tissue with ropivacaine 0.5% 1 mL. A 22-guage 3-1/2 inch needle was inserted through the just at the lateral edge of sacrococcygeal ligament and advanced to the anterior aspect of the joint guided by myrtle-posterior and lateral fluoroscopy. Correct needle position was verified by injecting 2 ml of water soluble dye, Omnipaque 300, and observing a spread along the anterior side of the sacro-coccygeal ligament. After negative aspiration of CSF, blood, and no paresthesias, 7 mL of block solution containing 4 mL of 0.5%preservative-free ropivacaine and 80 mg of Depo-medrol was injected. Needle was withdrawn intact. Skin was cleansed and bandages were applied COMPLICATIONS: None DISPOSITION / PLANS: The patient was placed in a supine position and transferred to the recovery area in a stable condition for observation. Patient was discharged from the recovery room after meeting discharge criteria. Discharge instructions given to the patient by the staff. The patient was reexamined prior to discharge. The patient will schedule a follow up in the clinic in 2-4 weeks.
--- NOTE | 2024-08-03 08:39 | FL ---
EXAMINATION TYPE: FL guided pain mgmt statistic DATE OF EXAM: 08/03/2024 FLUOROSCOPY FL 4.5 DAP 0.63709 GANGLION NERVE BLOCK 2 images are submitted. [facility], , 08/03/2024 8:37 AM
[2024-08-03 08:49] VITALS: BP 123/73; PULSE 71
== END 2024-08-03 08:54 | disposition home or self-care (01) ==
LOC: ORPAIN 06:58
PROVIDERS: ATTEND Specialist
DX: M47.816 Spondylosis without myelopathy or radiculopathy, lumbar region (principal); M53.3 Sacrococcygeal disorders, not elsewhere classified; K62.89 Other specified diseases of anus and rectum
CPT/HCPCS: 64493; J2250; J3010; Q9966; J2795; J1010; 64510

== ENCOUNTER 2024-10-13 11:37 | Emergency (ER) | payer BC ==
--- NOTE | 2024-10-13 12:35 | ED ---
General Adult HPI - General Chief complaint: Abdominal Pain Stated complaint: something stuck in throat Time Seen by Provider: 10/13/24 11:50 Source: patient, RN notes reviewed Mode of arrival: ambulatory Limitations: no limitations - History of Present Illness Initial comments: This is a 54-year-old female presenting to emergency department for complaint of heartburn-like symptoms over the past 2 days. Patient states that symptoms started after she ate soup for dinner on night, where she will experience a burning sensation in the lower part of her chest that is exacerbated with eating foods. She denies difficulty breathing. Patient states she was evaluated urgent care where they instructed her to take Pepcid that has aided in relief of her symptoms. - Related Data Home Medications Medication Instructions Recorded Confirmed Sertraline [Zoloft] 50 mg PO QAM 09/30/20 08/03/24 Simvastatin [Zocor] 40 mg PO HS 10/07/22 08/03/24 oxyCODONE-APAP 5-325MG [Percocet 1 tab PO Q4H PRN 03/09/23 08/03/24 5-325 mg] Budesonide/Formoterol Fumarate 2 puff INHALATION BID PRN 10/13/23 08/03/24 [Budesonide-Formoterol 160-4.5] Albuterol Inhaler [Ventolin Hfa 1 - 2 puff INHALATION Q6H PRN 11/15/23 08/03/24 Inhaler] fentaNYL 25MCG/HR PATCH [Duragesic 25 mcg TRANSDERM Q72H 02/22/24 08/03/24 25MCG/HR] Melatonin 6 mg PO HS PRN 03/27/24 08/03/24 Cholecalciferol [Vitamin D3 (25 25 mcg PO DAILY 07/30/24 08/03/24 Mcg = 1000 Iu)] polyethylene glycoL 3350 [Miralax] 17 gm PO DAILY 07/30/24 08/03/24 Allergies Allergy/AdvReac Type Severity Reaction Status Date / Time No Known Allergies Allergy Verified 08/03/24 07:29 Review of Systems ROS Statement: Those systems with pertinent positive or pertinent negative responses have been documented in the HPI. ROS Other: All systems not noted in ROS Statement are negative. 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 FACTOR 5, ELEVATED D-Dimer, ? PE in the past - treated for 6 mos. History of Any Multi-Drug Resistant Organisms: None Reported Past Surgical History: Back Surgery, Orthopedic Surgery Additional Past Surgical History / Comment(s): HYSTEROSCOPY/MYOMECTOMY- REMOVAL UTERINE FIBROIDS, TARLOV CYSTS ON SPINE DRAINED AND FILLED WITH BODY FAT 2006), EGD/COLONOSCOPY, BILATERAL LASER SURGERY FOR VISION CORRECTION SPINAL CORD STIMULATOR INSERTION/REMOVAL. multiple steroid injections lower back. myelogram 2006 in [place] Past Anesthesia/Blood Transfusion Reactions: Family History of Problems w/ Anesthesia, Motion Sickness, Postoperative Nausea & Vomiting (PONV) Additional Past Anesthesia/Blood Transfusion Reaction / Comment(s): states "mom gets sick" Past Psychological History: No Psychological Hx Reported Smoking Status: Never smoker - Past Family History Sister(s) Family Medical History: Cancer Additional Family Medical History / Comment(s): THYROID CANCER Mother Family Medical History: Cancer Additional Family Medical History / Comment(s): PANCREATIC CANCER Father Family Medical History: Cancer, Hyperlipidemia Additional Family Medical History / Comment(s): LUNG CANCER General Exam - General Exam Comments Initial Comments: Visual Physical Exam Vital signs reviewed General: Well-appearing, nontoxic, no acute distress. Head: Normocephalic, atraumatic Eyes: PERRLA, EOMI ENT: Airway patent Chest: Nonlabored breathing Skin: No visual rash, normal skin tone Neuro: Alert and oriented 3 Musculoskeletal: No gross abnormalities Limitations: no limitations General appearance: alert, in no apparent distress Neck exam: Present: normal inspection. Absent: tenderness, meningismus, lymphadenopathy Respiratory exam: Present: normal lung sounds bilaterally. Absent: respiratory distress, wheezes, rales, rhonchi, stridor Cardiovascular Exam: Present: regular rate, normal rhythm, normal heart sounds. Absent: systolic murmur, diastolic murmur, rubs, gallop, clicks GI/Abdominal exam: Present: soft, normal bowel sounds. Absent: distended, tend erness, guarding, rebound, rigid Extremities exam: Present: normal inspection, full ROM, normal capillary refill. Absent: tenderness, pedal edema, joint swelling, calf tenderness Back exam: Present: normal inspection Course Vital Signs 10/13/24 10/13/24 11:58 15:41 Temperature 99 F Pulse Rate 100 77 Respiratory 20 20 Rate Blood Pressure 126/84 123/55 O2 Sat by Pulse 99 99 Oximetry Medical Decision Making - Medical Decision Making Was pt. sent in by a medical professional or institution (, [facility], [employer], urgent care, hospital, or [facility]...) When possible be specific @ -No Did you speak to anyone other than the patient for history (EMS, parent, family, police, friend...)? What history was obtained from this source @ -No Did you review nursing and triage notes (agree or disagree)? Why? @ -I reviewed and agree with nursing and triage notes Were old charts reviewed (outside hosp., previous admission, EMS record, old EKG, old radiological studies, urgent care reports/EKG's, [facility] records)? Report findings @ -No old charts were reviewed Differential Diagnosis (chest pain, altered mental status, abdominal pain women, abdominal pain men, vaginal bleeding, weakness, fever, dyspnea, syncope, headache, dizziness, GI bleed, back pain, seizure, CVA, palpatations, mental health, musculoskeletal)? @ -M differential chest pain EKG interpreted by me (3pts min.). @ -Completed at 1322 sinus rhythm with a ventricular rate 73, UT interval 134, QRS 83, QTc 390. X-rays interpreted by me (1pt min.). @ -Chest x-ray no acute cardiopulmonary process CT interpreted by me (1pt min.). @ -None done U/S interpreted by me (1pt. min.). @ -None done What testing was considered but not performed or refused? (CT, X-rays, U/S, labs)? Why? @ -None What meds were considered but not given or refused? Why? @ -None Did you discuss the management of the patient with other professionals (professionals i.e. , [facility], [employer], lab, RT, psych nurse, social work coordinator, team cdl driver, teacher, liaison officer, case management specialist)? Give summary @ -No Was smoking cessation discussed for >3mins.? @ -No Was critical care preformed (if so, how long)? @ -No Were there social determinants of health that impacted care today? How? (Homelessness, low income, unemployed, alcoholism, drug addiction, transportation, low edu. Level, literacy, decrease access to med. care, [facility], rehab)? @ -No Was there de-escalation of care discussed even if they declined (Discuss DNR or withdrawal of care, Hospice)? DNR status @ -No What co-morbidities impacted this encounter? (DM, HTN, Smoking, COPD, CAD, Cancer, CVA, ARF, Chemo, Hep., AIDS, mental health diagnosis, sleep apnea, morbid obesity)? @ -None Was patient admitted / discharged? Hospital course, mention meds given and route, prescriptions, significant lab abnormalities, going to OR and other pertinent info. @ -Discharge. 54-year female presenting with chest discomfort. Overall patient is well-appearing no signs of acute distress. Vitals are stable. Patient will undergo cardiac evaluation with concern for atypical AK. Labs grossly within normal. Patient arrived with dose of glucagon states that symptoms have mildly improved. Recommend that she continue to take Pepcid as needed and follow-up with primary care provider for further evaluation. Case is discussed with Dr. Dash Undiagnosed new problem with uncertain prognosis? @ -No Drug Therapy requiring intensive monitoring for toxicity (Heparin, Nitro, Insulin, Cardizem)? @ -No Were any procedures done? @ -No Diagnosis/symptom? @ -non cardiac chest pain Acute, or Chronic, or Acute on Chronic? @ -acute Uncomplicated (without systemic symptoms) or Complicated (systemic symptoms)? @ -uncomplicated Side effects of treatment? @ -No Exacerbation, Progression, or Severe Exacerbation? @ -No Poses a threat to life or bodily function? How? (Chest pain, USA, AK, pneumonia, PE, COPD, DKA, ARF, appy, cholecystitis, CVA, Diverticulitis, Homicidal, Suicidal, threat to staff... and all critical care pts) @ -No - Lab Data Result diagrams: 10/13/24 13:22 10/13/24 13:22 Lab Results 10/13/24 10/13/24 10/13/24 Range/Units 13:22 13:22 13:22 WBC 5.8 (3.8-10.6) k/uL RBC 4.90 (3.80-5.40) m/uL Hgb 13.5 (11.4-16.0) gm/dL Hct 41.9 (34.0-46.0) % MCV 85.6 (80.0-100.0) fL MCH 27.6 (25.0-35.0) pg MCHC 32.2 (31.0-37.0) g/dL RDW 12.8 (11.5-15.5) % Plt Count 289 (150-450) k/uL MPV 8.0 Neutrophils % 76 % Lymphocytes % 16 % Monocytes % 6 % Eosinophils % 0 % Basophils % 0 % Neutrophils # 4.4 (1.3-7.7) k/uL Lymphocytes # 1.0 (1.0-4.8) k/uL Monocytes # 0.3 (0-1.0) k/uL Eosinophils # 0.0 (0-0.7) k/uL Basophils # 0.0 (0-0.2) k/uL PT 10.3 (10.0-12.5) sec INR 0.9 (<1.2) APTT 24.6 (22.0-30.0) sec Sodium 139 (137-145) mmol/L Potassium 4.3 (3.5-5.1) mmol/L Chloride 99 (98-107) mmol/L Carbon Dioxide 30 (22-30) mmol/L Anion Gap 10 mmol/L BUN 14 (7-17) mg/dL Creatinine 0.70 (0.52-1.04) mg/dL Est GFR (CKD-EPI)AfAm >90 (>60 ml/min/1.73 sqM) Est GFR (CKD-EPI)NonAf >90 (>60 ml/min/1.73 sqM) Glucose 92 (74-99) mg/dL Calcium 9.6 (8.4-10.2) mg/dL Magnesium 2.1 (1.6-2.3) mg/dL Total Bilirubin 0.5 (0.2-1.3) mg/dL AST 57 H (14-36) U/L ALT 90 H (4-34) U/L Alkaline Phosphatase 60 (38-126) U/L Troponin I (0.000-0.034) ng/mL Total Protein 7.9 (6.3-8.2) g/dL Albumin 5.0 (3.5-5.0) g/dL Lipase 59 (23-300) U/L 10/13/24 Range/Units 13:22 WBC (3.8-10.6) k/uL RBC (3.80-5.40) m/uL Hgb (11.4-16.0) gm/dL Hct (34.0-46.0) % MCV (80.0-100.0) fL MCH (25.0-35.0) pg MCHC (31.0-37.0) g/dL RDW (11.5-15.5) % Plt Count (150-450) k/uL MPV Neutrophils % % Lymphocytes % % Monocytes % % Eosinophils % % Basophils % % Neutrophils # (1.3-7.7) k/uL Lymphocytes # (1.0-4.8) k/uL Monocytes # (0-1.0) k/uL Eosinophils # (0-0.7) k/uL Basophils # (0-0.2) k/uL PT (10.0-12.5) sec INR (<1.2) APTT (22.0-30.0) sec Sodium (137-145) mmol/L Potassium (3.5-5.1) mmol/L Chloride (98-107) mmol/L Carbon Dioxide (22-30) mmol/L Anion Gap mmol/L BUN (7-17) mg/dL Creatinine (0.52-1.04) mg/dL Est GFR (CKD-EPI)AfAm (>60 ml/min/1.73 sqM) Est GFR (CKD-EPI)NonAf (>60 ml/min/1.73 sqM) Glucose (74-99) mg/dL Calcium (8.4-10.2) mg/dL Magnesium (1.6-2.3) mg/dL Total Bilirubin (0.2-1.3) mg/dL AST (14-36) U/L ALT (4-34) U/L Alkaline Phosphatase (38-126) U/L Troponin I <0.012 (0.000-0.034) ng/mL Total Protein (6.3-8.2) g/dL Albumin (3.5-5.0) g/dL Lipase (23-300) U/L Disposition Clinical Impression: Non-cardiac chest pain, Heart burn Disposition: HOME SELF-CARE Condition: Stable Instructions (If sedation given, give patient instructions): GERD (Gastroesophageal Reflux Disease) (ED) Additional Instructions: Please return to the Emergency Department if symptoms worsen or any other concerns. Is patient prescribed a controlled substance at d/c from ED?: No Referrals: Juan J Tobin DO [Primary Care Provider] - 1-2 days Time of Disposition: 16:07
--- NOTE | 2024-10-13 12:46 | XR ---
EXAMINATION TYPE: XR chest 2V DATE OF EXAM: 10/13/2024 12:42 PM COMPARISON: Chest radiographs from 03/09/2023 TECHNIQUE: XR chest 2V Frontal and lateral views of the chest. CLINICAL INDICATION:Female, 54 years old with history of pain; FINDINGS: Lungs/Pleura: There is no evidence of pleural effusion, focal consolidation, or pneumothorax. Pulmonary vascularity: Unremarkable. Heart/mediastinum: Cardiomediastinal silhouette is unremarkable. Musculoskeletal: No acute osseous pathology. Multilevel degenerative disc disease. IMPRESSION: No acute cardiopulmonary disease/process. [facility], , 10/13/2024 12:44 PM
[2024-10-13 13:37] LABS: Basophils % (A) 0 %; Eosinophils % (A) 0 %; HCT 41.9 % (34.0-46.0); HGB 13.5 gm/dL (11.4-16.0); Lymphocytes % (A) 16 %; MCH 27.6 pg (25.0-35.0); MCHC 32.2 g/dL (31.0-37.0); MCV 85.6 fL (80.0-100.0); Monocytes # (A) 0.3 k/uL (0-1.0); Monocytes % (A) 6 %; Neutrophils # (A) 4.4 k/uL (1.3-7.7); Neutrophils % (A) 76 %; Platelet Count 289 k/uL (150-450); RDW 12.8 % (11.5-15.5); WBC 5.8 k/uL (3.8-10.6)
[2024-10-13 13:46] LABS: INR 0.9 (<1.2); Partial Thromboplastin Time 24.6 sec (22.0-30.0); Prothrombin Time 10.3 sec (10.0-12.5)
[2024-10-13 13:56] LABS: ALT 90 U/L (4-34); AST 57 U/L (14-36); African American GFR (CKD) >90 (>60 ml/min/1.73 sqM); Alkaline Phosphatase 60 U/L (38-126); Anion Gap 10 mmol/L; Blood Urea Nitrogen 14 mg/dL (7-17); Calcium 9.6 mg/dL (8.4-10.2); Carbon Dioxide 30 mmol/L (22-30); Chloride 99 mmol/L (98-107); Glucose 92 mg/dL (74-99); Lipase 59 U/L (23-300); Magnesium 2.1 mg/dL (1.6-2.3); Non-African American GFR(CKD) >90 (>60 ml/min/1.73 sqM); Potassium 4.3 mmol/L (3.5-5.1); Sodium 139 mmol/L (137-145); Total Bilirubin 0.5 mg/dL (0.2-1.3); Total Protein 7.9 g/dL (6.3-8.2)
[2024-10-13] MEDS: GLUCAGON 1 MG/ML VIAL IM STA (16:03)
[2024-10-13 16:57] VITALS: BP 109/66; PULSE 74; RESP 16; TEMP 98.1
== END 2024-10-13 16:57 | disposition home or self-care (01) ==
LOC: EC 11:37
DX: R07.89 Other chest pain (principal); R12 Heartburn
CPT/HCPCS: 36415; 93005; 80053; 83690; 83735; 84484; 85025; 85610; 85730; 71046; 99284; 96372; J1610